=== PATIENT | male | born 1950 | race Caucasian/White ===

== ENCOUNTER 2017-09-04 10:10 | Inpatient (IN) | payer OTHER ==
[~2017-09-04] VITALS: Ht 172.7 cm; Wt 47.3 kg
--- NOTE | 2017-09-04 10:48 | ED GENERAL ADULT ---
History of Present Illness General Chief Complaint: General Adult Stated Complaint: VOMITING Source: patient Exam Limitations: no limitations Vital Signs & Intake/Output Vital Signs & Intake/Output Vital Signs Date Time Temp Pulse Resp B/P B/P Pulse O2 O2 Flow FiO2 Mean Ox Delivery Rate 09/04 1713 97.4 40 18 118/64 98 09/04 1425 98.0 42 20 124/85 98 Room Air 09/04 1333 45 20 120/75 98 Room Air 09/04 1312 50 20 105/68 99 Room Air 09/04 1230 98.4 50 20 110/72 99 Room Air 09/04 1144 98.4 55 20 123/81 98 Room Air 09/04 1106 98.6 61 20 78/48 98 Room Air 09/04 1016 98.8 47 18 72/40 98 Room Air Allergies Coded Allergies: No Known Allergies (09/04/17) Reconcile Medications Omeprazole 40 MG CAPSULE. 1 CAP PO DAILY GI (Reported) Triage Note: 67 YO MALE TO TRIAGE FOR EVAL OF VOMTIING X "AWHILE" REPORTS HE WAS SEEN AT THE [facility] 2 WEEKS AGO FOR SAME AND WAS DX WITH GERD AND PLACED ON OMEPRAZOLE. REPORTS S/S HAVE NOT GOTTEN BETTER AND HE VOMITS APPROX 30MINUTES AFTER EATING EVERY MEAL. Triage Nurses Notes Reviewed? yes Onset: Abrupt Duration: day(s):, constant, continues in ED, getting worse Timing: recent history Injury Environment: home Severity: moderate, severe No Modifying Factors: none Associated Symptoms: NAUSEA VOMITING HPI: 67-year-old male past medical history of GERD and develop mental delay presents for evaluation of episodes of nausea vomiting and weakness. Patient reports that over the past month or so he's had multiple episodes of vomiting 30 minutes after meals. He states that his cause him to have a decreased appetite and has lost weight. Has not been eating and drinking as much. He reports he has burning in his throat and feels like he has acid reflux. No diarrhea chest pain shortness of breath dizziness or lightheadedness. The only medication he's been taking is omeprazole without any improvement. No fever no urinary symptoms. No recent surgery. (Boyd Anderson) Past History Travel History Traveled to [place] past 21 day No Medical History Any Pertinent Medical History? see below for history Neurological: NONE EENT: NONE Cardiovascular: NONE Respiratory: NONE Gastrointestinal: GERD Hepatic: NONE Renal: NONE Musculoskeletal: NONE Psychiatric: NONE Endocrine: NONE Blood Disorders: NONE Cancer(s): NONE BOOKING MANAGER/Reproductive: NONE Surgical History Surgical History: non-contributory Psychosocial History What is your primary language Pashto Tobacco Use: Never used Family History Hx Contributory? No (Boyd Anderson) Review of Systems Review of Systems Constitutional: Reports: weakness. EENTM: Reports: no symptoms. Respiratory: Reports: no symptoms. Cardiovascular: Reports: no symptoms. GI: Reports: see HPI, nausea, vomiting. Genitourinary: Reports: no symptoms. Musculoskeletal: Reports: no symptoms. Skin: Reports: no symptoms. Neurological/Psychological: Reports: no symptoms. Hematologic/Endocrine: Reports: no symptoms. Immunologic/Allergic: Reports: no symptoms. All Other Systems: Reviewed and Negative (Boyd Anderson) Physical Exam Physical Exam General Appearance: well developed/nourished, no apparent distress, alert, awake , thin Head: atraumatic, normal appearance Eyes: Bilateral: normal appearance, PERRL, EOMI. Ears, Nose, Throat: normal pharynx, normal ENT inspection, hearing grossly normal Neck: normal inspection, supple, full range of motion Respiratory: normal breath sounds, chest non-tender, no respiratory distress, lungs clear Cardiovascular: normal peripheral pulses, bradycardia Peripheral Pulses: 2+ radial (R), 2+ radial (L) Gastrointestinal: normal bowel sounds, soft, non-tender, no organomegaly Back: normal inspection, normal range of motion, no vertebral tenderness Extremities: normal inspection, normal range of motion, no edema Neurologic/Psych: no motor/sensory deficits, awake, alert, oriented x 3, normal gait, normal mood/affect Skin: intact, normal color, warm/dry Lymphatic: no anterior cervical ely Core Measures ACS in differential dx? No CVA/TIA Diagnosis: No Sepsis Present: No Sepsis Focused Exam Completed? No (Boyd Anderson) Progress Differential Diagnoses I considered the following diagnoses in my evaluation of the patient: [ Symptomatic bradycardia, heart block, malignancy, septic shock, dehydration, electrolyte abnormality, PE, acute coronary syndrome] Plan of Care: Orders Procedure Date/time Status TROPONIN LEVEL 09/05 0100 Active EKG 09/05 0100 Active Nothing by Mouth 09/04 D Active TROPONIN LEVEL 09/04 1944 Active LACTIC ACID 09/04 1944 Active EKG 09/04 1944 Active Wound Care/Dressing 09/04 1904 Complete Weight 09/04 1905 Active VTE Mechanical Prophylaxis 09/04 190 Active Vital Signs 09/04 190 Active Turn and Reposition 09/04 1904 Active Drains/Tubes 09/04 1904 Complete Teach/Educate 09/04 1904 Active Skin Integrity Protocol 09/04 190 Active Skin/Pressure Ulcer Assess (Sk 09/04 190 Active Precautions 09/04 190 Active Pain Treatment and Response 09/04 1904 Active Nutritional Intake, Monitor 09/04 1904 Active Isolation 09/04 1904 Active CIWA 09/04 1904 Complete Patient Care Conference 09/04 1904 Active Activity/Ambulation 09/04 190 Active Weight 09/04 1855 Active VRE ACTIVE SURVIELLANCE 09/04 185 Active ACTIVE SURVEILLANCE NARES 09/04 185 Active Transfer patient to 09/04 1825 Active Vital Signs 09/04 1713 Active Patient Data 09/04 1644 Active Pathway - chart 09/04 1550 Active House Staff 09/04 1550 Active Patient Data 09/04 1550 Active ED Holding Orders 09/04 1437 Active Admit to inpatient 09/04 1437 Active Code Status 09/04 1437 Active EKG 09/04 1102 Active Intake & Output 09/04 1059 Complete Add-on Test (ER Only) 09/04 1047 Active HIV (Reflex to HIVCQ) 09/04 1041 Complete Add-on Test (ER Only) 09/04 1028 Active EKG 09/04 1020 Active URINALYSIS 09/04 1014 Complete TSH REFLEX 09/04 1014 Complete TROPONIN LEVEL 09/04 1014 Complete PARTIAL THROMBOPLASTIN TIME 09/04 1014 Complete PROTHROMBIN TIME 09/04 1014 Complete MAGNESIUM 09/04 1014 Complete LIPASE 09/04 1014 Complete LACTIC ACID 09/04 1014 Complete COMPREHENSIVE METABOLIC PANEL 09/04 1014 Complete CBC WITHOUT DIFFERENTIAL 09/04 1014 Complete US-ABD/PELV ORGAN DOPPLER 09/04 UNK Active Lab Add-on Test 09/04 UNK Active VTE Mechanical Prophylaxis 09/04 UNK Active MISTAKE 09/04 UNK Active Telemetry/[employer] Combination Teacher 09/04 UNK Active Intake & Output 09/04 UNK Active Hemoccult 09/04 UNK Active Current Medications Sig/[place] Start time Last Medication Dose Stop Time Status Admin Enoxaparin Sodium 40 MG DAILY 05/08 0900 AC (Lovenox) Pantoprazole Sodium 40 MG BID 09/04 2100 AC 09/04 (Protonix) 2017 Atropine Sulfate 0.5 MG ONCE PRN 09/04 1800 AC (Atropine) Dextrose/Sodium 1,000 ML Q13H 09/04 1800 AC 09/04 Chloride 1906 (D5W-1/2 Normal Saline 1000ML) Acetaminophen 650 MG Q6P PRN 09/04 1600 AC (Tylenol) Ibuprofen 600 MG Q6P PRN 09/04 1600 AC (Motrin) Oxycodone/ 1 TAB Q6P PRN 09/04 1600 AC Acetaminophen (Percocet) Laboratory Tests 09/04/171951: Troponin I Pending 09/04/171951: Lactic Acid Pending 09/04/17 1511: Urine Color YEL, Urine Clarity CLEAR, Urine pH 5.5, Ur Specific [place] <= 1.005 , Urine Protein NEG, Urine Ketones NEG, Urine Nitrite NEG, Urine Bilirubin NEG, Urine Urobilinogen 0.2, Ur Leukocyte Esterase NEG, Ur Microscopic EXAM NOT REQUIRED, Urine Hemoglobin NEG, Urine Glucose NEG 09/04/17 1041: Anion Gap 13, Estimated GFR > 60, BUN/Creatinine Ratio 30.0 H, Glucose 79, Lactic Acid 1.0, Calcium 9.1, Magnesium 1.8, Total Bilirubin 0.7, AST 27, ALT 25 , Alkaline Phosphatase 58, Troponin I < 0.01, Total Protein 6.7, Albumin 3.8, Globulin 2.9, Albumin/Globulin Ratio 1.3, Lipase 38, TSH &T3 &Free T4 Intrp 3.710, PT 11.6, INR 1.06, APTT 26, CBC w Diff NO MAN DIFF REQ, RBC 4.31 L, MCV 89.8, MCH 29.3, MCHC 32.7 L, RDW 13.2, MPV 8.1, Gran % 76.1 H, Lymphocytes % 13.1 L, Monocytes % 7.5, Eosinophils % 3.0, Basophils % 0.3, Absolute Granulocytes 4.3, Absolute Lymphocytes 0.7 L, Absolute Monocytes 0.4, Absolute Eosinophils 0.2, Absolute Basophils 0, HIV 1&2 Ab Western Blot NONREACTIVE Microbiology 09/04 1849 UPPER RESP: Surveillance Culture - RECD 09/04 1849 GI: Surveillance Culture - RECD Patient seen and evaluated. On initial evaluation he is hypotensive and bradycardic. His heart rate is down to the 30s. Appears to be sinus bradycardia. He is hypotensive to 70s over 40s. He does appear to be mentating well. He has no chest pain or shortness of breath. IV fluids ordered patient also be medicated with 0.5 mg of IV atropine. Patient is doing much better after atropine. He is now in the 50s and 60s. After fluids blood pressure has improved to the 120s systolic. Blood work shows normal troponin normal electrolytes. Patient did bradycardia down again to the mid 40s however his blood pressure is stable. He is mentating well. We'll hold additional atropine or pacing for now. Spoke with Dr. Santoro from cardiology who suspects this may be symptomatic bradycardia. He recommends admission to the hospital for further evaluation and treatment and considering pacemaker. Case discussed with Dr. Corea he agrees. Diagnostic Imaging: Viewed by Me: Radiology Read. Discussed w/RAD: Radiology Read. Radiology Impression: PATIENT: CÉSAR WILKINS PRESENT AGE: 67 PATIENT ACCOUNT NO: [id number] : 48 LOCATION: [facility] ORDERING PHYSICIAN: Boyd ALVAREZ SERVICE DATE: 09/04/17 EXAM TYPE: RAD - XRY- PORTABLE CHEST XRAY EXAMINATION: XR PORTABLE CHEST CLINICAL INFORMATION: Hypotension, CHF COMPARISON: None TECHNIQUE: Portable frontal view of the chest was obtained. FINDINGS: Hyperinflated emphysematous lungs are noted. There is an indistinct 2 cm density in the left mid lung, at the level of left hilum. An underlying mass is not excluded. No pleural effusion or pneumothorax. The cardiac size is upper normal limits. The mediastinal silhouette is normal. No pulmonary venous congestion. IMPRESSION: Hyperinflated emphysematous lungs. A 2 cm indistinct masslike density in the left mid lung. CT scan evaluation can be considered. Borderline cardiac size. DICTATED BY: Yong Donnelly MD DATE/TIME DICTATED:09/04/171255 GROUP EXERCISE MANAGER:VERNELL DATE/TIME TRANSCRIBED:1255 CONFIDENTIAL, DO NOT COPY WITHOUT APPROPRIATE AUTHORIZATION., PATIENT: CÉSAR WILKINS PRESENT AGE: 67 PATIENT ACCOUNT NO: [id number] : 48 LOCATION: [facility] ORDERING PHYSICIAN: Boyd ALVAREZ SERVICE DATE: 09/04/17 EXAM TYPE: CAT - CT ABD & PELVIS W IV CONTRAST EXAMINATION: CT ABDOMEN AND PELVIS WITH CONTRAST CLINICAL INFORMATION: Intermittent nausea and vomiting, hypotension. COMPARISON: None TECHNIQUE: Multidetector volumetric imaging was performed of the abdomen and pelvis following IV administration of 95 mL of Optiray 320 intravenous contrast. Sagittal and coronal reformatted images were obtained on the technologist's workstation. DLP: 243 mGy-cm FINDINGS: There is a paucity of intra-abdominal fat. LUNG BASES: There are mild dependent changes in the visualized lung bases. The imaged heart and pericardium appear unremarkable. The distal esophagus is fluid-filled and demonstrates a small hiatal hernia. LIVER, GALLBLADDER, AND BILIARY TREE: The liver enhances normally with normal contour. In the inferior aspect of the right lobe there is a 7 mm hypoattenuating focus, nonspecific. No definitive intrahepatic or extrahepatic ductal dilatation is visualized. The gallbladder is unremarkable with no evidence of radiopaque gallstones, gallbladder wall thickening, or obvious pericholecystic inflammatory changes. PANCREAS: Pancreatic parenchyma appears unremarkable. The pancreatic duct is visualized and appears top normal in caliber at 2 mm in diameter. SPLEEN: Unremarkable. ADRENAL GLANDS: Unremarkable. KIDNEYS AND URETERS: The kidneys are normal in size, shape, and attenuation. No hydronephrosis, hydroureter, or calculi seen. No perinephric stranding. BLADDER: Unremarkable. GASTROINTESTINAL TRACT: No definitive bowel dilatation is visualized. There is moderate stool within the colon. The lack of intra-abdominal fat substantially limits assessment for extraluminal air and ascites; no conclusive extraluminal air. A small amount of free fluid may be present in the pelvis. There may be some mucosal hyperemia diffusely involving small bowel loops. An appendix is difficult to definitively identify. ABDOMINAL WALL: No significant hernia is appreciated. LYMPH NODES: Adenopathy is difficult to evaluate due to lack of intra-abdominal fat. VASCULAR: The aorta appears normal in caliber. There is streak artifacts extending through an area of the right portal vein which likely creates some intraluminal heterogeneity. Correlation with ultrasound is recommended to ensure patency of the portal vein without intraluminal filling defects. The iliac vessels are somewhat tortuous and patulous. PELVIC VISCERA: Unremarkable. OSSEOUS STRUCTURES: There are 5 nonrib-bearing lumbar type vertebral bodies. There were multilevel degenerative changes of the spine most notable at L5-S1. There are mild degenerative changes of both hips, SI joints, and pubic symphysis. No acute osseous abnormality. IMPRESSION: There is a paucity of intra-abdominal fat which limits assessment. Mild small bowel mucosal hyperemia may be present, possibly reflecting an enteritis. A small amount of fluid within the pelvis is suspected. Heterogeneous attenuation within the right portal vein, likely due to streak artifact. Correlation with ultrasound is suggested to ensure normal portal venous flow. DICTATED BY: Narinder Silver MD DATE/TIME DICTATED:09/04/171350 GROUP EXERCISE MANAGER:VERNELL DATE/TIME TRANSCRIBED:09/04/171350 CONFIDENTIAL, DO NOT COPY WITHOUT APPROPRIATE AUTHORIZATION. <Electronically signed in Other Vendor System> Initial ED EKG: SINUS BRADYCARDIA RATE 43, RIGHT BUNDLE LEFT ANTERIOR FASCICULAR BLOCK, REPEAT ekg AFTER ATROPINE SHOWS IMPROVED RATE IN THE 50S (Boyd Anderson) Departure Departure Disposition: STILL A PATIENT Condition: Stable Clinical Impression Primary Impression: Symptomatic bradycardia Referrals: Ace Olvera MD (PCP/Family) Departure Forms: Customer Survey General Discharge Information Admission Note Spoke With: Leonel Claudio MD Documentation of Exam: Documentation of any treatments & extenuating circumstances including Concerns Regarding Discharge (functional status, medication knowledge or non-compliance, living conditions, etc.) that warrant an admission rather than observation: [ Telemetry, serial labs, serial EKGs, monitoring of vital signs, cardiac consult, echocardiogram, pacemaker, IV fluids] (Boyd Anderson) PA/EC TEACHER Co-Sign Statement Statement: ED Attending supervision documentation- [X] I saw and evaluated the patient. I have also reviewed all the pertinent lab results and diagnostic results. I agree with the findings and the plan of care as documented in the PA's/EC TEACHER's documentation. [] I have reviewed the ED Record and agree with the PA's/EC TEACHER's documentation. [] Additions or exceptions (if any) to the PAs/EC TEACHER's note and plan are summarized below: [] (Leland Corea DO) Critical Care Note Critical Care Note Critical Care Time: non-applicable (Boyd Anderson)
[2017-09-04] MEDS ORDERED: OMEPRAZOLE40 M1 PO (11:10)
[2017-09-04 11:12] LABS: ABSOLUTE BASOPHIL COUNT 0 /CUMM (0.0-0.2); ABSOLUTE EOSINOPHIL COUNT 0.2 /CUMM (0.0-0.7); ABSOLUTE GRANULOCYTE CT 4.3 /CUMM (1.4-6.5); ABSOLUTE LYMPH COUNT 0.7 /CUMM (1.2-3.4); ABSOLUTE MONOCYTE COUNT 0.4 /CUMM (0.10-0.60); BASOPHIL % 0.3 % (0.0-2.0); GRANULOCYTE % 76.1 % (42.2-75.2); HEMATOCRIT 38.7 % (42-52); MEAN CORPUSCULAR HGB 29.3 PG (27.0-31.0); MEAN CORPUSCULAR HGB CONC 32.7 G/DL (33.0-37.0); MEAN CORPUSCULAR VOLUME 89.8 FL (80.0-94.0); MEAN PLATELET VOLUME 8.1 FL (7.4-10.4); PLATELET COUNT 222 /CUMM (130-400); RBC DISTRIBUTION WIDTH 13.2 % (11.5-14.5); RED BLOOD CELL CT 4.31 /CUMM (4.70-6.10); WHITE BLOOD CELL COUNT 5.7 /CUMM (4.8-10.8)
[2017-09-04 11:14] LABS: PT 11.6 SEC (9.4-12.5); PTT 26 SEC (25-37)
--- NOTE | 2017-09-04 13:03 | RADIOLOGY REPORT ---
EXAMINATION: XR PORTABLE CHEST CLINICAL INFORMATION: Hypotension, CHF COMPARISON: None TECHNIQUE: Portable frontal view of the chest was obtained. FINDINGS: Hyperinflated emphysematous lungs are noted. There is an indistinct 2 cm density in the left mid lung, at the level of left hilum. An underlying mass is not excluded. No pleural effusion or pneumothorax. The cardiac size is upper normal limits. The mediastinal silhouette is normal. No pulmonary venous congestion. IMPRESSION: Hyperinflated emphysematous lungs. A 2 cm indistinct masslike density in the left mid lung. CT scan evaluation can be considered. Borderline cardiac size.
--- NOTE | 2017-09-04 14:09 | CT SCAN REPORT ---
EXAMINATION: CT ABDOMEN AND PELVIS WITH CONTRAST CLINICAL INFORMATION: Intermittent nausea and vomiting, hypotension. COMPARISON: None TECHNIQUE: Multidetector volumetric imaging was performed of the abdomen and pelvis following IV administration of 95 mL of Optiray 320 intravenous contrast. Sagittal and coronal reformatted images were obtained on the technologist's workstation. DLP: 243 mGy-cm FINDINGS: There is a paucity of intra-abdominal fat. LUNG BASES: There are mild dependent changes in the visualized lung bases. The imaged heart and pericardium appear unremarkable. The distal esophagus is fluid-filled and demonstrates a small hiatal hernia. LIVER, GALLBLADDER, AND BILIARY TREE: The liver enhances normally with normal contour. In the inferior aspect of the right lobe there is a 7 mm hypoattenuating focus, nonspecific. No definitive intrahepatic or extrahepatic ductal dilatation is visualized. The gallbladder is unremarkable with no evidence of radiopaque gallstones, gallbladder wall thickening, or obvious pericholecystic inflammatory changes. PANCREAS: Pancreatic parenchyma appears unremarkable. The pancreatic duct is visualized and appears top normal in caliber at 2 mm in diameter. SPLEEN: Unremarkable. ADRENAL GLANDS: Unremarkable. KIDNEYS AND URETERS: The kidneys are normal in size, shape, and attenuation. No hydronephrosis, hydroureter, or calculi seen. No perinephric stranding. BLADDER: Unremarkable. GASTROINTESTINAL TRACT: No definitive bowel dilatation is visualized. There is moderate stool within the colon. The lack of intra-abdominal fat substantially limits assessment for extraluminal air and ascites; no conclusive extraluminal air. A small amount of free fluid may be present in the pelvis. There may be some mucosal hyperemia diffusely involving small bowel loops. An appendix is difficult to definitively identify. ABDOMINAL WALL: No significant hernia is appreciated. LYMPH NODES: Adenopathy is difficult to evaluate due to lack of intra-abdominal fat. VASCULAR: The aorta appears normal in caliber. There is streak artifacts extending through an area of the right portal vein which likely creates some intraluminal heterogeneity. Correlation with ultrasound is recommended to ensure patency of the portal vein without intraluminal filling defects. The iliac vessels are somewhat tortuous and patulous. PELVIC VISCERA: Unremarkable. OSSEOUS STRUCTURES: There are 5 nonrib-bearing lumbar type vertebral bodies. There were multilevel degenerative changes of the spine most notable at L5-S1. There are mild degenerative changes of both hips, SI joints, and pubic symphysis. No acute osseous abnormality. IMPRESSION: There is a paucity of intra-abdominal fat which limits assessment. Mild small bowel mucosal hyperemia may be present, possibly reflecting an enteritis. A small amount of fluid within the pelvis is suspected. Heterogeneous attenuation within the right portal vein, likely due to streak artifact. Correlation with ultrasound is suggested to ensure normal portal venous flow.
--- NOTE | 2017-09-04 14:53 | History & Physical ---
Lea Sharif MD 09/04/17 9333: General Information and HPI MD Statement: I have seen and personally examined CÉSAR WILKINS and documented this H&P. The patient is a 67 year old M who presented with a patient stated chief complaint of nausea and vomiting on eating Source of Information: patient, friend Exam Limitations: no limitations History of Present Illness: This is a 67 year old male with a PMH of GERD and unspecified cardiac issue that comes to us for nausea and vomiting/ heartburn symptoms of 6 weeks duration. Patient is accompanied by his long time home health palliative care nurse practitioner who gives much of the history. The patient states that for the past 6 weeks whenever he attempts to eat anything he vomits about 30 minutes afterwards. He states that before he throws up he feels a burning sensation down the length of his esophagus. Patient states that he was seen by his doctor about 2 weeks ago who diagnosed him with GERD and prescribed him Prilosec which has not helped at all. He was also instructed not eat caffeine, tomatoes, spices. Apparently Monday, the patient attended a fair and ate lasagna and a starry smoothie and promptly vomited. He states that even eating a few bites of food has caused him to become nauseous and vomit. The last time the patient ate was that meal on Monday night. The home health care worker attempted to feed him Ensure today to no avail, he has been afraid to eat since Monday. She noted that he appeared "flushed" in the face today, more lethargic so she brought him in. The patient denies any difficulty initiating swallowing. He denies any feeling of food getting stuck in his throat. He states that he only really vomits when he eats solid foods. He denies any hematemesis, brown or red blood, and states that the vomitus is usually clear. Does not notice any change in his bowel movements, denies melenic or hematochezia. She has about 1 bowel movement a day. Patient does admit to associated shortness of breath when he has these vomiting episodes. He denies any abdominal pain. The patient also admits that recently his urine has had a different smell. He denies any dysuria, hematuria. The patient has lost weight in the past 6 weeks, although only noted to be around 4 pounds by the home health worker. However, she does note that he has lost a lot in the past year, cannot specify amount. Patient denies headache, dizziness, nightsweats. He reports that he had an unknown surgery in 1995 and had to be put on a telemetry floor, but he cannot say why. Denies any previous heart or blood pressure issues. The home healthcare worker notes that he may have early onset Alzheimer's. The patient denies every having smoked, drugs, admits to rare alcohol use in the past. Denies opiate use by prescription or otherwise. Patient has family history of liver and throat cancer in his brothers, heart attack in his father. No known allergies to drugs/food. Allergies/Medications Allergies: Coded Allergies: No Known Allergies (09/04/17) Home Med list Omeprazole 40 MG CAPSULE.DR Cruz CAP PO DAILY GI (Reported) Compliance With Home Meds: GOOD Past History Travel History Traveled to [place] past 21 day No Medical History Neurological: Beginning dementia by report of home health aide. EENT: NONE Cardiovascular: unspecified heart rate issue Respiratory: NONE Gastrointestinal: GERD Hepatic: NONE Renal: NONE Musculoskeletal: NONE Psychiatric: NONE Endocrine: NONE Blood Disorders: NONE Cancer(s): NONE WATCH DIAL STONER/Reproductive: NONE Surgical History Surgical History: none Past Family/Social History Family History Relations & Conditions if any Family history was reviewed; no changes noted. Psychosocial History Where do you live? Home Services at Home: Home Health Aide Primary Language: Iraqi Smoking Status: Former Smoker ETOH Use: denies use Illicit Drug Use: denies illicit drug use Living Will? no Functional Ability Ambulation: independent Review of Systems Review of Systems Constitutional: Reports: weakness, unexplained weight loss. EENTM: Reports: no symptoms. Cardiovascular: Reports: no symptoms. Respiratory: Reports: no symptoms. GI: Reports: nausea, vomiting. Genitourinary: Reports: no symptoms. Musculoskeletal: Reports: no symptoms. Skin: Reports: no symptoms. Neurological/Psychological: Reports: no symptoms. Hematologic/Endocrine: Reports: no symptoms. Immunologic/Allergic: Reports: no symptoms. All Other Systems: Reviewed and Negative Exam & Diagnostic Data Last 24 Hrs of Vital Signs/I&O Vital Signs Date Time Temp Pulse Resp B/P B/P Pulse O2 O2 Flow FiO2 Mean Ox Delivery Rate 09/04 1713 97.4 40 18 118/64 98 09/04 1425 98.0 42 20 124/85 98 Room Air 09/04 1333 45 20 120/75 98 Room Air 09/04 1312 50 20 105/68 99 Room Air 09/04 1230 98.4 50 20 110/72 99 Room Air 09/04 1144 98.4 55 20 123/81 98 Room Air 09/04 1106 98.6 61 20 78/48 98 Room Air 09/04 1016 98.8 47 18 72/40 98 Room Air Intake & Output 09/04 1600 09/04 0800 05 0000 Intake Total 3000 Output Total Balance 3000 Intake, IV 3000 Physical Exam General Appearance Alert, Oriented X3, Cooperative, No Acute Distress, cachectic Skin No Rashes, No Breakdown, No Significant Lesion Skin Temp/Moisture Exam: Warm/Dry Sepsis Skin Exam (color): Normal for Ethnicity HEENT Atraumatic, PERRLA, EOMI, patient has white plaque on the roof of his mouth over his dentures. Neck Supple Cardiovascular Normal S1, Normal S2, No Murmurs, bradycardia Lungs Clear to Auscultation, Normal Air Movement Abdomen Normal Bowel Sounds, No Tenderness, cachectic abdomen, liver and spleen palpable Neurological Normal Speech Extremities No Clubbing, No Cyanosis, No Edema, Normal Pulses, No Tenderness/ Swelling Vascular Normal Pulses, Pulses Symmetrical Sepsis Peripheral Pulse Location: Radial Sepsis Peripheral Pulse Exam: Normal Sepsis Cap Refill Exam: <2 Sec Last 24 Hrs of Labs/Rasheed: Laboratory Tests 09/04/17 1511: Urine Color YEL, Urine Clarity CLEAR, Urine pH 5.5, Ur Specific [place] <= 1.005 , Urine Protein NEG, Urine Ketones NEG, Urine Nitrite NEG, Urine Bilirubin NEG, Urine Urobilinogen 0.2, Ur Leukocyte Esterase NEG, Ur Microscopic EXAM NOT REQUIRED, Urine Hemoglobin NEG, Urine Glucose NEG 09/04/17 1041: Anion Gap 13, Estimated GFR > 60, BUN/Creatinine Ratio 30.0 H, Glucose 79, Lactic Acid 1.0, Calcium 9.1, Magnesium 1.8, Total Bilirubin 0.7, AST 27, ALT 25 , Alkaline Phosphatase 58, Troponin I < 0.01, Total Protein 6.7, Albumin 3.8, Globulin 2.9, Albumin/Globulin Ratio 1.3, Lipase 38, TSH &T3 &Free T4 Intrp 3.710, PT 11.6, INR 1.06, APTT 26, CBC w Diff NO MAN DIFF REQ, RBC 4.31 L, MCV 89.8, MCH 29.3, MCHC 32.7 L, RDW 13.2, MPV 8.1, Gran % 76.1 H, Lymphocytes % 13.1 L, Monocytes % 7.5, Eosinophils % 3.0, Basophils % 0.3, Absolute Granulocytes 4.3, Absolute Lymphocytes 0.7 L, Absolute Monocytes 0.4, Absolute Eosinophils 0.2, Absolute Basophils 0, HIV 1&2 Ab Western Blot Pending Assessment/Plan Assessment: This is a 67 year old male with a PMH of GERD and unspecified cardiac issue that comes to us for nausea and vomiting/ heartburn symptoms of 6 weeks duration. Patient is accompanied by his long time home health palliative care nurse practitioner who gives much of the history. The patient states that for the past 6 weeks whenever he attempts to eat anything, even small spoonfuls, he has episodes with clear vomitus soon after. He was recently diagnosed with GERD and started on protonix to not avail. Patient only vomits when he eats solid foods but denies any diffulty swallowing or the feeling of food being stuck in his throat. Patient specifies unknown cardiac issue in the past, denies any current dizziness, LOC. In the ED, temperature is found to be 98, heart rate 42, respiratory rate 20, blood pressure 124/85 up from 72/40 after being given 3 normal saline boluses, 98% on room air. WBC count 5.7, hemoglobin 12.6 with normal MCV, lactic acid 1.0, LFTs normal, sodium 138, potassium 4.3, troponins negative, EKG shows sinus bradycardia at a rate of 43 with no heart block and a QRS just under the upper limits of normal. As stated patient was given 3 normal saline boluses and atropine 0.5 mg IV 1. Chest x-ray showed hyperinflated emphysematous lungs and a 2 cm indistinct masslike density in the left midlung. CT abdomen and pelvis showed evidence of hyperemia and enteritis with questionable streak artifact in the left portal vein. Problem list -Bradycardia, in setting of esophageal/chest pain, requiring one dose of atropine -Hypotension requiring fluid resuscitation -Gastroesophageal symptoms, nausea and vomiting, evidence of malnutrition -Evidence of oral leukoplakia or thrush Plan Patient to be transferred to ICU as he will require pacer pads and atropine bedside for low heart rate. 1. Bradycardia, in setting of esophageal/chest pain -Pacer pads and atropine at bedside for heart rate less than 30 -Continuous telemetry monitoring -Echocardiogram -Cardio consult, Dr. Santoro has seen the patient. -Troponins and EKGs 3 -Thyroid function tests -Lyme titers -Utox 2. Hypotension requiring fluid resuscitation: Patient has sodium of 138, BUN 38, creatinine of 1.0. -Continue D5 half normal saline at a rate of 100 mL per hour -Continue to monitor BEP and vitals 3. Gastroesophageal symptoms, nausea and vomiting, evidence of malnutrition -Zofran as needed -Protonix IV 40 mg twice a day -Hold opiates as we are not sure if patient is having dysmotility issues -Check creatinine in morning and if normal, order CT chest. Patient has received contrast for CT abdomen and pelvis this evening. -Consider modified barium swallow with speech and swallow pending chest CT -Continue to keep patient nothing by mouth -Calorie count and monitoring, consider nutritional consult after patient is eating. -Ultrasound abdomen and pelvis Doppler 4. Oral lesion resembling oral leukoplakia or thrush -HIV test in setting of severe weight loss DVT prophylaxis with Alps and heparin Patient is nothing by mouth Patient is full code As Ranked By This Provider Problem List: 1. Symptomatic bradycardia 2. Nausea and vomiting 3. GERD (gastroesophageal reflux disease) Core Measures/Misc (01/15) Acute Coronary Syndrome ACS Diagnosis: No Congestive Heart Failure Congestive Heart Failure Diagnosis No Cerebrovascular Accident CVA/TIA Diagnosis: No VTE (View Protocol) VTE Risk Factors Acute Medical Illness No Mechanical VTE Prophylaxis d/t N/A MechProphylax Ordered No VTE Pharm Prophylaxis d/t NA PharmProphylax ordered Sepsis (View protocol) Sepsis Present: No Maria Fernanda Oviedo MD 09/04/171952: Attending MD Review Statement Attending Statement Attending MD Statement: examined this patient, discuss w/resident/PA/SUPERVISOR FABRICATION, agreed w/resident/PA/SUPERVISOR FABRICATION, reviewed EMR data (avail), discussed with nursing, reviewed images Attending Assessment/Plan: 67 year old male with PMH of developmental delay who is here with severe bradycardia. The patient says that for the past few weeks he's been having symptoms of indigestion and has been vomiting after almost every meal. The history appears to be suggestive of the vomiting worse with solids and he can tolerate liquid foods fairly well. He says in the past week he has been diagnosed with GERD and was prescribed omeprazole which he took but it made no change to his symptoms. His history is corroborated by his home health care worker who was with him and says that because of the episodes of vomiting getting so severe essentially for the past few days the patient has had very poor by mouth intake. That's what prompted her to bring him to the emergency room. When he first came to the emergency room he was significantly hypotensive and bradycardic. His labs were essentially normal and unrevealing. A CT abdomen showed some question of an enteritis and possibility of portal vein artifact versus thrombosis. His chest x-ray is also talked to interpret as it showed a 2 cm masslike density that needs further evaluation with CT chest. His hypotension responded well to IV fluids but his bradycardia persisted. His EKG is unrevealing for any heart blocks or Wenckebach and it appears to be significant sinus bradycardia. We initially admitted him to telemetry but have upgraded him to ICU based on his heart rate and the need for possible atropine or pacer pads overnight. We have a bradycardia workup pending including Lyme titer, thyroid function tests, echocardiogram and Dr. Santoro will see him from cardiology. Will gently hydrate him and keep him nothing by mouth to get the ultrasound of the abdomen to evaluate the abnormality seen on the portal vein and will also get a CT chest to better evaluate his masslike density. He will also need a GI evaluation and possible endoscopy once the bradycardia issue is sorted out for this vomiting after meals. Would put him on low-dose DVT prophylaxis and follow closely. Otoniel WILLIS,Louisa 09/04/17 7426: Resident Review Statement Resident Statement: examined this patient, discussed with internal grinder tender, agreed with internal grinder tender Other Findings: This is a 67-year-old gentleman with a past medical history significant for GERD and developmental delay, who comes in for chief complaint of persistent vomiting and heartburn. Patient had his home nursing caretaker [facility] at bedside, who provided the majority of the history. Per patient, his symptoms of GERD started over a year ago, however they got significantly worse about 6 weeks ago. He started developing vomiting with every meal and about 2 weeks ago he went to see his PCP Dr. Vera. He was prescribed a PPI and given an antireflux diet. Patient states that neither intervention made change in his symptoms. Last time he vomited was on Monday night. After that, he states that he has been afraid to eat did not eat anything all of Monday. He states the vomiting occurs only with solid foods and seems to be better with smoothies or liquids. He states that his symptoms happen after just a few bites of food. He does not have any nausea or abdominal pain associated with the vomiting. Rather, he says his food does not go down; he gets a burning sensation in mid chest and then he throws it back up. Denies any coffee-ground emesis or hematemesis. He does endorse weight loss but cannot quantify the amount. Denies any headache , nausea, diarrhea, chest pain, shortness of breath, or weakness. Family history significant for throat cancer in 1 sibling and liver cancer in another. He denies any drinking, smoking or substance abuse. He currently does not work and stays at home on disability. During ED workup patient was found to be significantly hypotensive with blood pressure 72/40 requiring 3 L normal saline resuscitation. Additionally, he was noted to have bradycardia into the 30s along with the hypotension. Patient denies any dizziness, change in vision, palpitation or chest pain. He denies any previous history of bradycardia, or recent change in medications. PLAN: 1. Bradycardia: He seemed to improve after getting atropine 1 in the ED however, when he came back to the floors he started going into the 30s again while remaining completely awake, asymptomatic and conversant. X-ray does show a 2 cm mass in left midlung and borderline cardiomegaly. His EKG shows some slightly widened QRS. But it does not appear like he is in heart block. Differential could include increased vagal tone, hypothyroid, or ingestions. * Transferred to ICU * Atropine at bedside * Pacer at bedside with pads on * Check Lyme panel * Monitor electrolytes * Appreciate cardio input * Urine tox * Echo 2. Hypotension: Unsure of etiology but it seemed to resolve after 3 L of fluid. * Continue to monitor 3. Vomiting: CT abdomen and pelvis with contrast shows ?enteritis and ?streak artifact in the right portal vein. However the description of his symptoms seemed primarily esophageal given the dysphasia is with solids. * Check TFTs * Check LFT * Check lipase * Ultrasound abdomen Doppler * Strict ins and outs * N.p.o. * Swallow eval * CT chest with IV contrast in a.m. * Hemoccult 4. On physical exam he did have some leukoplakia versus oral thrush finding on the hard palate of his dentures. * HIV 5. X-ray finding of a 2 cm mass in left midlung: Patient states that he has never smoked but given his weight loss, cachectic appearance, dysphasia there is concern for malignancy. * CT chest with contrast in a.m. Full code Chemical DVT prophylaxis N.P.O
--- NOTE | 2017-09-04 15:48 | Admission Certification ---
Admission Certification Certification Statement - As attending physician, I certify that at the time of - admission, based on clinical presentation, severity of - symptoms, need for further diagnostic testing and - therapeutic interventions, and risk of adverse outcomes - without in-hospital treatment, in my clinical assessment, - this patient requires an acute hospital stay for a minimum - of two nights or longer. I have also considered psychsocial - factors such as support system, advanced age, financial - issues, cognitive issues, and failed out-patient treatments, - past re-admission history, safety of patient, and lack of - compliance as applicable. Specific rationale supporting this admission is: Symptomatic bradycardia in patient with history of GERD and developmental delay.
[2017-09-04 17:13] VITALS: BP 118/64
--- NOTE | 2017-09-04 17:30 | Cons- Cardiology ---
General Information and HPI Consulting Request Date of Consult: 09/04/17 Requested By: Raoul WILLIS,Arnav Callahan Reason for Consult: Bradycardia History of Present Illness: The patient is a 67-year-old male with history of GERD who presented with complaint of nausea and vomiting. For the past 6 weeks he has been vomiting about 30 minutes after every meal. He was diagnosed 2 weeks ago with GERD and started on Prilosec. He was noted to have significant hypotension and bradycardia and after initially being admitted to the telemetry floor he was transferred to the intensive care unit. Chest x-ray shows a possible 2 cm masslike density. The patient is noted to be a poor historian. No chest pain. No syncope. No palpitations. No fever. Allergies/Medications Allergies: Coded Allergies: No Known Allergies (09/04/17) Home Med List: Omeprazole 40 MG CAPSULE. 1 CAP PO DAILY GI (Reported) Current Medications: Current Medications Sig/Triston Start time Last Medication Dose Route Stop Time Status Admin Acetaminophen 650 MG Q6P PRN 09/04 1600 AC PO Atropine Sulfate 0.5 MG ONCE PRN 09/04 1800 AC IV Atropine Sulfate 0 .STK-MED ONE 09/04 1101 DC .ROUTE Atropine Sulfate 0.5 MG ONE ONE 09/04 1045 DC / IV 09/04 1046 1056 Dextrose/Sodium 1,000 ML Q13H 09/04 1800 AC 09/05 Chloride IV 0510 Enoxaparin Sodium 40 MG DAILY 09/05 0900 AC 09/05 SC 1017 Ibuprofen 600 MG Q6P PRN 09/04 1600 DC PO Oxycodone/ 1 TAB Q6P PRN 09/04 1600 DC Acetaminophen PO Pantoprazole Sodium 40 MG BID 09/04 2100 AC 09/05 IV 0747 Sodium Chloride 1,000 ML BOLUS ONE 09/04 1345 DC 05/ IV 05/ 1444 1347 Sodium Chloride 1,000 ML BOLUS ONE 09/04 1100 DC 05/07 IV / 1159 1056 Sodium Chloride 1,000 ML BOLUS ONE 09/04 1030 DC 05/ IV / 1129 1056 Past History Travel History Traveled to [place] past 21 day No Medical History Neurological: BORDERLINE INTELLECTUAL EENT: NONE Cardiovascular: NONE Respiratory: NONE Gastrointestinal: GERD Hepatic: NONE Renal: NONE Musculoskeletal: NONE Psychiatric: NONE Endocrine: NONE Blood Disorders: NONE Cancer(s): NONE 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 Surgical History Surgical History: non-contributory Exam & Diagnostic Data Vital Signs and I&O Vital Signs Date Time Temp Pulse Resp B/P B/P Pulse O2 O2 Flow FiO2 Mean Ox Delivery Rate 09/05 0800 98.2 43 20 110/80 96 Room Air 09/05 0000 97.2 42 16 120/76 99 Room Air Room Air 09/04 1713 97.4 40 18 118/64 98 / 1425 98.0 42 20 124/85 98 Room Air 09/04 1333 45 20 120/75 98 Room Air 09/04 1312 50 20 105/68 99 Room Air 09/04 1230 98.4 50 20 110/72 99 Room Air 09/04 1144 98.4 55 20 123/81 98 Room Air 09/04 1106 98.6 61 20 78/48 98 Room Air Intake & Output 09/05 1600 09/05 0800 /08 0000 09/04 1600 09/04 0800 09/04 0000 Intake Total 569 042 1903 Output Total 300 0 Balance 627 712 5506 Intake, IV 141 570 1809 Intake, Oral 0 0 Output, Urine 300 0 Patient 100 lb 101 lb 100 lb Weight Weight Bed scale Bed scale Bed scale Measurement Method Labs/Rasheed Results: Laboratory Tests 09/05 09/05 09/04 0200 0200 2147 Chemistry Sodium (137 - 145 mmol/L) 137 Potassium (3.5 - 5.1 mmol/L) 3.7 Chloride (98 - 107 mmol/L) 104 Carbon Dioxide (22 - 30 mmol/L) 24 Anion Gap (5 - 16) 9 BUN (9 - 20 mg/dL) 20 Creatinine (0.7 - 1.2 mg/dL) 0.7 Estimated GFR (>60 ml/min) > 60 BUN/Creatinine Ratio (7 - 25 %) 28.6 H Troponin I (<0.11 ng/ml) < 0.01 Hematology CBC w Diff NO MAN DIFF REQ WBC (4.8 - 10.8 /CUMM) 5.4 RBC (4.70 - 6.10 /CUMM) 3.89 L Hgb (14.0 - 18.0 G/DL) 11.6 L Hct (42 - 52 %) 34.4 L MCV (80.0 - 94.0 FL) 88.5 MCH (27.0 - 31.0 PG) 29.9 MCHC (33.0 - 37.0 G/DL) 33.7 RDW (11.5 - 14.5 %) 13.1 Plt Count (130 - 400 /CUMM) 215 MPV (7.4 - 10.4 FL) 8.0 Gran % (42.2 - 75.2 %) 76.1 H Lymphocytes % (20.5 - 51.1 %) 13.6 L Monocytes % (1.7 - 9.3 %) 6.3 Eosinophils % (0 - 5 %) 3.4 Basophils % (0.0 - 2.0 %) 0.6 Absolute Granulocytes (1.4 - 6.5 /CUMM) 4.1 Absolute Lymphocytes (1.2 - 3.4 /CUMM) 0.7 L Absolute Monocytes (0.10 - 0.60 /CUMM) 0.3 Absolute Eosinophils (0.0 - 0.7 /CUMM) 0.2 Absolute Basophils (0.0 - 0.2 /CUMM) 0 Serology Lyme Disease Antibody Cancelled 09/04 1511 Chemistry Lactic Acid (0.7 - 2.1 mmol/L) 0.9 Troponin I (<0.11 ng/ml) < 0.01 Toxicology Urine Opiates Screen (>2000 NG/ML) < 100 Methadone Screen (>300 NG/ML) < 40 Barbiturate Screen (>200 NG/ML) < 60 Ur Phencyclidine Scrn (>25 NG/ML) < 6.00 Amphetamines Screen (>1000 NG/ML) < 100 U Benzodiazepines Scrn (>200 NG/ML) < 85 Urine Cocaine Screen (>300 NG/ML) < 50 Urine Cannabis Screen (>50 NG/ML) < 5.00 Urines Urine Color (YEL,AMB,STR) YEL Urine Clarity (CLEAR) CLEAR Urine pH (5.0 - 8.0) 5.5 Ur Specific Ball (1.001 - 1.035) <= 1.005 Urine Protein (NEG,<30 MG/DL) NEG Urine Ketones (NEG) NEG Urine Nitrite (NEG) NEG Urine Bilirubin (NEG) NEG Urine Urobilinogen (0.1 - 1.0 EU/dl) 0.2 Ur Leukocyte Esterase (NEG) NEG Ur Microscopic EXAM NOT REQUIRED Urine Hemoglobin (NEG) NEG Urine Glucose (N MG/DL) NEG 09/04 09/04 1041 1041 Chemistry Sodium (137 - 145 mmol/L) 138 Potassium (3.5 - 5.1 mmol/L) 4.3 Chloride (98 - 107 mmol/L) 101 Carbon Dioxide (22 - 30 mmol/L) 24 Anion Gap (5 - 16) 13 BUN (9 - 20 mg/dL) 30 H Creatinine (0.7 - 1.2 mg/dL) 1.0 Estimated GFR (>60 ml/min) > 60 BUN/Creatinine Ratio (7 - 25 %) 30.0 H Glucose (65 - 99 mg/dL) 79 Lactic Acid (0.7 - 2.1 mmol/L) 1.0 Calcium (8.4 - 10.2 mg/dL) 9.1 Magnesium (1.6 - 2.3 mg/dL) 1.8 Total Bilirubin (0.2 - 1.3 mg/dL) 0.7 AST (17 - 59 U/L) 27 ALT (21 - 72 U/L) 25 Alkaline Phosphatase (< 127 U/L) 58 Troponin I (<0.11 ng/ml) < 0.01 Total Protein (6.3 - 8.2 g/dL) 6.7 Albumin (3.5 - 5.0 g/dL) 3.8 Globulin (1.9 - 4.2 gm/dL) 2.9 Albumin/Globulin Ratio (1.1 - 2.2 %) 1.3 Lipase (23 - 300 U/L) 38 TSH &T3 &Free T4 Intrp (0.27 - 4.20 uIU/mL) 3.710 Coagulation PT (9.4 - 12.5 SEC) 11.6 INR (0.90 - 1.17) 1.06 APTT (25 - 37 SEC) 26 Hematology CBC w Diff NO MAN DIFF REQ WBC (4.8 - 10.8 /CUMM) 5.7 RBC (4.70 - 6.10 /CUMM) 4.31 L Hgb (14.0 - 18.0 G/DL) 12.6 L Hct (42 - 52 %) 38.7 L MCV (80.0 - 94.0 FL) 89.8 MCH (27.0 - 31.0 PG) 29.3 MCHC (33.0 - 37.0 G/DL) 32.7 L RDW (11.5 - 14.5 %) 13.2 Plt Count (130 - 400 /CUMM) 222 MPV (7.4 - 10.4 FL) 8.1 Gran % (42.2 - 75.2 %) 76.1 H Lymphocytes % (20.5 - 51.1 %) 13.1 L Monocytes % (1.7 - 9.3 %) 7.5 Eosinophils % (0 - 5 %) 3.0 Basophils % (0.0 - 2.0 %) 0.3 Absolute Granulocytes (1.4 - 6.5 /CUMM) 4.3 Absolute Lymphocytes (1.2 - 3.4 /CUMM) 0.7 L Absolute Monocytes (0.10 - 0.60 /CUMM) 0.4 Absolute Eosinophils (0.0 - 0.7 /CUMM) 0.2 Absolute Basophils (0.0 - 0.2 /CUMM) 0 Serology Lyme Disease Antibody Pending HIV 1&2 Ab Western Blot (NONREACTIVE) NONREACTIVE Diagnostic Data EKG Results EKG tracings and apparently reviewed, and reveals sinus bradycardia at 43 with right bundle branch block and left anterior fascicular block CXR Results Hyperinflated emphysematous lungs. A 2 cm indistinct masslike density in the left mid lung. CT scan evaluation can be considered. Other Results CT scan of the abdomen and pelvis 09/04/17, There is a paucity of intra-abdominal fat which limits assessment. Mild small bowel mucosal hyperemia may be present, possibly reflecting an enteritis. A small amount of fluid within the pelvis is suspected. Heterogeneous attenuation within the right portal vein, likely due to streak artifact. Correlation with ultrasound is suggested to ensure normal portal venous flow. Assessment/Plan Assessment/Plan Assessment: 1. Nausea and vomiting, possible gastroenteritis 2. Sinus bradycardia with hypotension and bifascicular block 3. Possible lung mass Plan: * Monitor in ICU. * Transcutaneous pacing if needed for symptomatic bradycardia * Possible permanent pacemaker placement * Echocardiogram * IV fluid * CT scan of the chest * Check Lyme titer Consult Acknowledgment - Thank you for your consult request.
--- NOTE | 2017-09-04 22:11 | Event Note ---
Event Note Event Note: Dr. Pierson([id number]) sent the EKGs to Dr. Santoro to review. Received a call back from Dr. Santoro and discussed about the management plan going forward. BP was stable, and pt didnt have any symptoms of chest pain, palpitations, lightheadedness. Reviewed the case with Dr. Santoro, who concurred that he might have had an incomplete tri-fascicular block, with differentials ranging from LenegreLev disease, age related or mass effect on the vagus nerve. If the pt is symptomatic with an incomplete trifascicular block, which is an indication for pacemaker insertion. This needs to be discussed w/ the pt before pursuing this avenue. If the pt has a complete trifascicular block, would need a pacemaker. At this time, since he is asymptomatic, he would be watched closely in the ICU. If he is bradycardic upto 30s, would try to give a dose of atropine. If he is persistently low < 30s, then would try to pace transcutaneously. Signed out to the night team to f/u with the EKGs closely, and discuss w/ Maude if there is any change in ST changes, as CA needs to be ruled out.
--- NOTE | 2017-09-04 23:54 | ULTRASOUND REPORT ---
EXAMINATION: Complete duplex ultrasound of the abdomen CLINICAL INDICATION: Concern for right portal vein obstruction. Abdominal pain. COMPARISON: CT from 09/04/2017 TECHNIQUE: Real-time abdominal ultrasound performed. Duplex Doppler ultrasound and pulse wave Doppler with spectral analysis were also performed. FINDINGS: There is a small volume of ascites. The liver is normal in size, with normal echogenicity. No focal liver lesions are seen. The lesion seen on prior CT is not visualized on this study. No evidence for intrahepatic biliary ductal dilatation. The main, right, and left portal veins demonstrate normal corrected hepato-petal venous waveforms. The right, middle, and left hepatic veins demonstrates normal hepatofugal venous waveforms. The splenic vein demonstrates normal direction of flow. No evidence for venous thrombosis. Hepatic arteries are poorly visualized. The right hepatic artery demonstrates normal waveform with appropriate flow. The gallbladder appears unremarkable without stones or colon cystitis. The common bile duct is of normal size, measuring 0.6 cm. The visualized portion of the pancreas appears unremarkable. Both kidneys are visualized and are normal in size, echogenicity, and cortical thickness. The right kidney measures 8.9 cm in the sagittal plane, the left kidney measures 8.6 cm in sagittal plane. There is no mass, calcification or hydronephrosis seen. There is mild renal pelvic fullness of the left kidney. The spleen appears unremarkable and measures 8.5 cm. The proximal abdominal aorta and IVC are normal in appearance. Trace left pleural effusion noted. IMPRESSION: No evidence of portal venous thrombus. Small volume of ascites.
[2017-09-05] VITALS: BP 120/76
[2017-09-05 02:34] LABS: ABSOLUTE BASOPHIL COUNT 0 /CUMM (0.0-0.2); ABSOLUTE EOSINOPHIL COUNT 0.2 /CUMM (0.0-0.7); ABSOLUTE GRANULOCYTE CT 4.1 /CUMM (1.4-6.5); ABSOLUTE LYMPH COUNT 0.7 /CUMM (1.2-3.4); ABSOLUTE MONOCYTE COUNT 0.3 /CUMM (0.10-0.60); BASOPHIL % 0.6 % (0.0-2.0); EOSINOPHIL % 3.4 % (0-5); GRANULOCYTE % 76.1 % (42.2-75.2); HEMATOCRIT 34.4 % (42-52); MEAN CORPUSCULAR HGB 29.9 PG (27.0-31.0); MEAN CORPUSCULAR HGB CONC 33.7 G/DL (33.0-37.0); MEAN CORPUSCULAR VOLUME 88.5 FL (80.0-94.0); PLATELET COUNT 215 /CUMM (130-400); RBC DISTRIBUTION WIDTH 13.1 % (11.5-14.5); RED BLOOD CELL CT 3.89 /CUMM (4.70-6.10); WHITE BLOOD CELL COUNT 5.4 /CUMM (4.8-10.8)
--- NOTE | 2017-09-05 07:34 | Cons- CRCU ---
Soham England 09/05/17 0733: General Information and HPI Consulting Request Date of Consult: 09/05/17 Requested By: Dr Downs Reason for Consult: bradycardia Source of Information: patient, family Exam Limitations: poor historian History of Present Illness: This is a 67-year-old gentleman with a past medical history significant for GERD and developmental delay, who comes in for chief complaint of persistent vomiting and heartburn. Patient had his home nursing career orientation teacher Diamond at bedside, who provided the majority of the history. Per patient, his symptoms of GERD started over a year ago, however they got significantly worse about 6 weeks ago. He started developing vomiting with every meal and about 2 weeks ago he went to see his PCP Dr. Vera. He was prescribed a PPI and given an antireflux diet. Patient states that neither intervention made change in his symptoms. Last time he vomited was on Monday night. After that, he states that he has been afraid to eat did not eat anything all of Monday. He states the vomiting occurs only with solid foods and seems to be better with smoothies or liquids. He states that his symptoms happen after just a few bites of food. He does not have any nausea or abdominal pain associated with the vomiting. Rather, he says his food does not go down; he gets a burning sensation in mid chest and then he throws it back up. Denies any coffee-ground emesis or hematemesis. He does endorse weight loss but cannot quantify the amount. Denies any headache , nausea, diarrhea, chest pain, shortness of breath, or weakness. Family history significant for throat cancer in 1 sibling and liver cancer in another. He denies any drinking, smoking or substance abuse. He currently does not work and stays at home on disability. During ED workup patient was found to be significantly hypotensive with blood pressure 72/40 requiring 3 L normal saline resuscitation. Additionally, he was noted to have bradycardia into the 30s along with the hypotension. Patient denies any dizziness, change in vision, palpitation or chest pain. He denies any previous history of bradycardia, or recent change in medications. Given His persistent bradycardia patient was transferred to ICU. Allergies/Medications Allergies: Coded Allergies: No Known Allergies (09/04/17) Home Med List: Omeprazole 40 MG CAPSULE. 1 CAP PO DAILY GI (Reported) Current Medications: Current Medications Sig/Triston Start time Last Medication Dose Route Stop Time Status Admin Acetaminophen 650 MG Q6P PRN 09/04 1600 AC PO Atropine Sulfate 0.5 MG ONCE PRN 09/04 1800 AC IV Dextrose/Sodium 1,000 ML Q13H 09/04 1800 AC 09/05 Chloride IV 0510 Enoxaparin Sodium 40 MG DAILY 09/05 0900 AC 09/05 SC 1017 Ibuprofen 600 MG Q6P PRN 09/04 1600 DC PO Oxycodone/ 1 TAB Q6P PRN 09/04 1600 DC Acetaminophen PO Pantoprazole Sodium 40 MG BID 09/04 2100 AC 09/05 IV 0747 Sodium Chloride 1,000 ML BOLUS ONE 09/04 1345 DC 09/04 IV 09/04 1444 1347 Sodium Chloride 1,000 ML BOLUS ONE 09/04 1100 DC 09/04 IV 09/04 1159 1056 Review of Systems Review of Systems Constitutional: Reports: weakness. Denies: see HPI, chills, diaphoresis, fever, malaise, unexplained weight loss. EENTM: Denies: blurred vision, double vision. Cardiovascular: Denies: chest pain, edema, orthopena, palpitations, peripheral edema, syncope. Respiratory: Denies: cough, hemoptysis, orthopnea, short of breath, sputum production, stridor, wheezing. GI: Reports: vomiting. Denies: abdominal pain, bloating, constipation. Genitourinary: Denies: discharge, dysuria, frequency. Neurological/Psychological: Denies: anxiety, ataxia. Past History Travel History Traveled to [place] past 21 day No Medical History Neurological: Beginning dementia by report of home health aide. 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 Home Services at Home: Home Health Aide Primary Language: Korean Smoking Status: Former Smoker ETOH Use: denies use Illicit Drug Use: denies illicit drug use Living Will? no Functional Ability Ambulation: independent Exam & Diagnostic Data Last 24 Hrs of Vital Signs/I&O Vital Signs Date Time Temp Pulse Resp B/P B/P Pulse O2 O2 Flow FiO2 Mean Ox Delivery Rate 05/08 0800 98.2 43 20 110/80 96 Room Air 09/05 0000 97.2 42 16 120/76 99 Room Air Room Air 09/04 1713 97.4 40 18 118/64 98 09/04 1425 98.0 42 20 124/85 98 Room Air 09/04 1333 45 20 120/75 98 Room Air 09/04 1312 50 20 105/68 99 Room Air 09/04 1230 98.4 50 20 110/72 99 Room Air Intake & Output 09/05 1600 09/05 0800 05 0000 Intake Total 680 415 Output Total 300 0 Balance 380 415 Intake, IV 680 415 Intake, Oral 0 0 Output, Urine 300 0 Patient 45.388 kg 45.898 kg 45.388 kg Weight Weight Bed scale Bed scale Bed scale Measurement Method Physical Exam General Appearance: well developed/nourished, no apparent distress, alert, awake Other Physical Findings: HEENT Atraumatic, PERRLA, EOMI, patient has white plaque on the roof of his mouth over his dentures. Neck Supple Cardiovascular Normal S1, Normal S2, No Murmurs, bradycardia Lungs Clear to Auscultation, Normal Air Movement Abdomen Normal Bowel Sounds, No Tenderness, cachectic abdomen, liver and spleen palpable Neurological Normal Speech Extremities No Clubbing, No Cyanosis, No Edema, Normal Pulses, No Tenderness/ Swelling Vascular Normal Pulses, Pulses Symmetrical Last 48 Hrs of Labs/Rasheed: Laboratory Tests 09/05/17 0200: Troponin I < 0.01 09/05/17 0200: Anion Gap 9, Estimated GFR > 60, BUN/Creatinine Ratio 28.6 H, CBC w Diff NO MAN DIFF REQ, RBC 3.89 L, MCV 88.5, MCH 29.9, MCHC 33.7, RDW 13.1, MPV 8.0, Gran % 76.1 H, Lymphocytes % 13.6 L, Monocytes % 6.3, Eosinophils % 3.4, Basophils % 0.6, Absolute Granulocytes 4.1, Absolute Lymphocytes 0.7 L, Absolute Monocytes 0.3, Absolute Eosinophils 0.2, Absolute Basophils 0 09/04/172146: Lyme Disease Antibody Cancelled 09/04/171951: Troponin I < 0.01 09/04/171951: Lactic Acid 0.9 09/04/17 1511: Urine Opiates Screen < 100, Methadone Screen < 40, Barbiturate Screen < 60, Ur Phencyclidine Scrn < 6.00, Amphetamines Screen < 100, U Benzodiazepines Scrn < 85, Urine Cocaine Screen < 50, Urine Cannabis Screen < 5.00, Urine Color YEL, Urine Clarity CLEAR, Urine pH 5.5, Ur Specific [place] <= 1.005, Urine Protein NEG, Urine Ketones NEG, Urine Nitrite NEG, Urine Bilirubin NEG, Urine Urobilinogen 0.2, Ur Leukocyte Esterase NEG, Ur Microscopic EXAM NOT REQUIRED, Urine Hemoglobin NEG, Urine Glucose NEG 09/04/17 1041: Lyme Disease Antibody Pending 09/04/17 1041: Anion Gap 13, Estimated GFR > 60, BUN/Creatinine Ratio 30.0 H, Glucose 79, Lactic Acid 1.0, Calcium 9.1, Magnesium 1.8, Total Bilirubin 0.7, AST 27, ALT 25 , Alkaline Phosphatase 58, Troponin I < 0.01, Total Protein 6.7, Albumin 3.8, Globulin 2.9, Albumin/Globulin Ratio 1.3, Lipase 38, TSH &T3 &Free T4 Intrp 3.710, PT 11.6, INR 1.06, APTT 26, CBC w Diff NO MAN DIFF REQ, RBC 4.31 L, MCV 89.8, MCH 29.3, MCHC 32.7 L, RDW 13.2, MPV 8.1, Gran % 76.1 H, Lymphocytes % 13.1 L, Monocytes % 7.5, Eosinophils % 3.0, Basophils % 0.3, Absolute Granulocytes 4.3, Absolute Lymphocytes 0.7 L, Absolute Monocytes 0.4, Absolute Eosinophils 0.2, Absolute Basophils 0, HIV 1&2 Ab Western Blot NONREACTIVE Assessment/Plan CRCU Impression/Plan: 1. Bradycardia: Patient was found to have a bradycardia with heart rate varying between 35-40 in the emergency room. He seemed to improve after getting atropine 1 in the ED however, when he came back to the floors he started going into the 30s again while remaining completely awake, asymptomatic and conversant. His EKG reveals sinus bradycardia at 44 bpm with right bundle branch block and left anterior fascicular block. Troponins were negative. Serial EKGs continued to show sinus Catia with right bundle branch block and left anterior fascicular block. * Transferred to ICU * Sinus bradycardia with hypotension possible differential bifascicular block- right bundle branch block and left anterior fascicular block. * Cardiothoracic surgeon Dr. Sidhu on board * Planning to get permanent pacemaker on 09/06/2017 * Nothing by mouth tonight * Atropine at bedside * Transcutaneous pacing if needed for symptomatic bradycardia * monitor for any chest pain, palpitations, lightheadedness, sob, dizzyness. * f/u Lyme panel * Monitor electrolytes * Appreciate cardio input * Echo * Thyroid function tests in normal limits 2. Hypotension: Unsure of etiology but it seemed to resolve after 3 L of fluid. * Continue to monitor 3. Vomiting/dysphagia: CT abdomen and pelvis with contrast shows ?enteritis and ?streak artifact in the right portal vein. However the description of his symptoms seemed primarily esophageal given the dysphasia is with solids. Liver function tests in normal limits. Lipase was normal. Ultrasound abdomen Doppler was done which showed no evidence of portal venous thrombosis. Small volume of ascites was found. * N.p.o. * Swallow eval/barium swallow * GI consulted based on his CAT scan findings which showed esophageal dilatation with distal tapering, raising the question of achalasia, distal esophageal stricture or mass, scleroderma or, less likely, Chagas disease. * Continue Protonix 40 twice a day * Continue gentle hydration 4. On physical exam he did have some leukoplakia versus oral thrush finding on the hard palate of his dentures. * HIV neg 5. X-ray finding of a 2 cm mass in left midlung: Patient states that he has never smoked but given his weight loss, cachectic appearance, dysphagia there is concern for malignancy. * CT chest -no masses or nodules seen. There is mid linear scar, subsegmental atelectasis at the posterior left base. No mediastinal or hilar adenopathy. No thoracic aortic aneurysm. Full code Chemical DVT prophylaxis-lovenox and alps N.P.O Consult Acknowledgment - Thank you for your consult request. Yaakov Gallardo MD 09/05/17 1134: Assessment/Plan CRCU Other Findings/Comments: Yaakov Miller M.D. have examined this patient, reviewed available EMR data, personally reviewed images, discussed with resident/PA/TIRE INSPECTOR, discussed management plan with housestaff and nursing staff, discussed managment plan all of healthcare providers, discussed management plan with patient and/or family, agreed with resident/PA/TIRE INSPECTOR. The past history and parts of the chart have been autopopulated. Impression 67-year-old man * sinus bradycardia with bifascicular block - resolved hypotension * ?lung mass Plan -PPM per cardiology -monitor in icu -ct chest without contrast to evaluate left midlung lesion seen on cxr DVT prophylaxis at all times TTS 35 min Consult Acknowledgment - Thank you for your consult request.
[2017-09-05 08:00] VITALS: BP 110/80
--- NOTE | 2017-09-05 11:27 | PN- Cardiology ---
Subjective Subjective: Hypotension improved after IV fluid. The patient was bradycardic overnight with heart rates in the 30s. No chest pain. No palpitations. No shortness of breath. No diaphoresis. No nausea or vomiting Objective Vital Signs and I&Os Vital Signs Date Time Temp Pulse Resp B/P B/P Pulse O2 O2 Flow FiO2 Mean Ox Delivery Rate 09/06 799 98.2 43 20 110/80 96 Room Air 09/05 0000 97.2 42 16 120/76 99 Room Air Room Air 09/04 1713 97.4 40 18 118/64 98 / 1425 98.0 42 20 124/85 98 Room Air 09/04 1333 45 20 120/75 98 Room Air 09/04 1312 50 20 105/68 99 Room Air 09/04 1230 98.4 50 20 110/72 99 Room Air 09/04 1144 98.4 55 20 123/81 98 Room Air Intake & Output 09/05 1600 09/05 0809/05 0000 09/04 1600 09/04 0800 09/04 0000 Intake Total 382 176 8652 Output Total 300 0 Balance 349 055 3781 Intake, IV 127 171 0594 Intake, Oral 0 0 Output, Urine 300 0 Patient 100 lb 101 lb 100 lb Weight Weight Bed scale Bed scale Bed scale Measurement Method Physical Exam: Gen: NAD HEENT: normal Lungs: clear to auscultation, normal resp. effort Heart: RRR, S1, S2, no murmurs Abdomen: Soft, nontender, no masses Extremities: No clubbing, cyanosis, or edema. Neuro: Alert and oriented x 3, cranial nerves intact Current Medications: Current Medications Sig/Triston Start time Last Medication Dose Route Stop Time Status Admin Acetaminophen 650 MG Q6P PRN 09/04 1600 AC PO Atropine Sulfate 0.5 MG ONCE PRN 09/04 1800 AC IV Dextrose/Sodium 1,000 ML Q13H 09/04 1800 AC 09/05 Chloride IV 0510 Enoxaparin Sodium 40 MG DAILY 09/05 0900 AC 09/05 SC 1017 Ibuprofen 600 MG Q6P PRN 09/04 1600 DC PO Oxycodone/ 1 TAB Q6P PRN 09/04 1600 DC Acetaminophen PO Pantoprazole Sodium 40 MG BID 09/04 2100 AC 09/05 IV 0747 Sodium Chloride 1,000 ML BOLUS ONE 09/04 1345 DC 09/04 IV 09/04 1444 1347 Sodium Chloride 1,000 ML BOLUS ONE 09/04 1100 DC 09/04 IV 09/04 1159 1056 Sodium Chloride 1,000 ML BOLUS ONE 09/04 1030 DC 09/04 IV 09/04 1129 1056 Results Last 48 Hrs of Labs/Mics: Laboratory Tests 09/05/17 0200: Troponin I < 0.01 09/05/17 0200: Anion Gap 9, Estimated GFR > 60, BUN/Creatinine Ratio 28.6 H, CBC w Diff NO MAN DIFF REQ, RBC 3.89 L, MCV 88.5, MCH 29.9, MCHC 33.7, RDW 13.1, MPV 8.0, Gran % 76.1 H, Lymphocytes % 13.6 L, Monocytes % 6.3, Eosinophils % 3.4, Basophils % 0.6, Absolute Granulocytes 4.1, Absolute Lymphocytes 0.7 L, Absolute Monocytes 0.3, Absolute Eosinophils 0.2, Absolute Basophils 0 09/04/172146: Lyme Disease Antibody Cancelled 09/04/171951: Troponin I < 0.01 09/04/171951: Lactic Acid 0.9 09/04/17 1511: Urine Opiates Screen < 100, Methadone Screen < 40, Barbiturate Screen < 60, Ur Phencyclidine Scrn < 6.00, Amphetamines Screen < 100, U Benzodiazepines Scrn < 85, Urine Cocaine Screen < 50, Urine Cannabis Screen < 5.00, Urine Color YEL, Urine Clarity CLEAR, Urine pH 5.5, Ur Specific [place] <= 1.005, Urine Protein NEG, Urine Ketones NEG, Urine Nitrite NEG, Urine Bilirubin NEG, Urine Urobilinogen 0.2, Ur Leukocyte Esterase NEG, Ur Microscopic EXAM NOT REQUIRED, Urine Hemoglobin NEG, Urine Glucose NEG 09/04/17 1041: Lyme Disease Antibody Pending 09/04/17 1041: Anion Gap 13, Estimated GFR > 60, BUN/Creatinine Ratio 30.0 H, Glucose 79, Lactic Acid 1.0, Calcium 9.1, Magnesium 1.8, Total Bilirubin 0.7, AST 27, ALT 25 , Alkaline Phosphatase 58, Troponin I < 0.01, Total Protein 6.7, Albumin 3.8, Globulin 2.9, Albumin/Globulin Ratio 1.3, Lipase 38, TSH &T3 &Free T4 Intrp 3.710, PT 11.6, INR 1.06, APTT 26, CBC w Diff NO MAN DIFF REQ, RBC 4.31 L, MCV 89.8, MCH 29.3, MCHC 32.7 L, RDW 13.2, MPV 8.1, Gran % 76.1 H, Lymphocytes % 13.1 L, Monocytes % 7.5, Eosinophils % 3.0, Basophils % 0.3, Absolute Granulocytes 4.3, Absolute Lymphocytes 0.7 L, Absolute Monocytes 0.4, Absolute Eosinophils 0.2, Absolute Basophils 0, HIV 1&2 Ab Western Blot NONREACTIVE Recent Imaging Studies: EKG tracing is independently reviewed, and reveals sinus bradycardia at 44 bpm with right bundle branch block and left anterior fascicular block Assessment/Plan Assessment/Plan Assessment: 1. Nausea and vomiting, possible gastroenteritis 2. Sinus bradycardia with hypotension and bifascicular block 3. Possible lung mass Plan: * Monitor in ICU. * Transcutaneous pacing if needed for symptomatic bradycardia * Consult Dr. Sidhu for permanent pacemaker placement * Echocardiogram Continue telemetry? Yes
--- NOTE | 2017-09-05 13:25 | Cons- Thoracic Surgery ---
General Information and HPI Consulting Request Date of Consult: 09/05/17 Requested By: Yaakov Gallardo MD Reason for Consult: Symptomatic bradycardia. Evaluate for pacemaker placement Source of Information: old records, PCP Exam Limitations: dementia, poor historian History of Present Illness: The patient is a 67-year-old gentleman who presented to the emergency room with complaints of nausea and vomiting and is accompanied by his straightedge man. During the course of his evaluation he is found to have a significant bradycardia and was fairly hypotensive. He has been moved to the intensive care unit recommendation is being made for permanent pacemaker placement in the setting of hypertension associated with significant bradycardia. Allergies/Medications Allergies: Coded Allergies: No Known Allergies (09/04/17) Home Med List: Omeprazole 40 MG CAPSULE.DR 1 CAP PO DAILY GI (Reported) Current Medications: Current Medications Sig/Triston Start time Last Medication Dose Route Stop Time Status Admin Acetaminophen 650 MG Q6P PRN 09/04 1600 AC PO Atropine Sulfate 0.5 MG ONCE PRN 09/04 1800 AC IV Dextrose/Sodium 1,000 ML Q13H 09/04 1800 AC 09/05 Chloride IV 0510 Enoxaparin Sodium 40 MG DAILY 09/05 0900 AC 09/05 SC 1017 Ibuprofen 600 MG Q6P PRN 09/04 1600 DC PO Oxycodone/ 1 TAB Q6P PRN 09/04 1600 DC Acetaminophen PO Pantoprazole Sodium 40 MG BID 09/04 2100 AC 09/05 IV 0747 Sodium Chloride 1,000 ML BOLUS ONE 09/04 1345 DC 05/ IV 09/04 1444 1347 Past History Medical History Neurological: Beginning dementia by report of home health aide. EENT: NONE Cardiovascular: unspecified heart rate issue Respiratory: NONE Gastrointestinal: GERD Hepatic: NONE Renal: NONE Musculoskeletal: NONE Psychiatric: NONE Endocrine: NONE Blood Disorders: NONE Cancer(s): NONE FLAGMAN/Reproductive: NONE Surgical History Pertinent Surgical History: 1 Psychosocial History Where Do You Live? Home Services at Home: Home Health Aide Primary Language: Lao Smoking Status: Former Smoker ETOH Use: denies use Illicit Drug Use: denies illicit drug use Living Will? no Functional Ability Ambulation: independent Review of Systems Review of Systems: Review of systems notable for the nausea and vomiting which is now resolved. He has had no chest pain and there have been no describe syncopal episodes. He does not attest to any presyncopal type symptoms. He has had no palpitations. There have been no fevers night sweats or chills. The rest of his 12 point review of systems is unremarkable. Exam & Diagnostic Data Vital Signs and I&O Vital Signs Date Time Temp Pulse Resp B/P B/P Pulse O2 O2 Flow FiO2 Mean Ox Delivery Rate 09/06 799 98.2 43 20 110/80 96 Room Air 09/05 0000 97.2 42 16 120/76 99 Room Air Room Air 09/04 1713 97.4 40 18 118/64 98 09/04 1425 98.0 42 20 124/85 98 Room Air 09/04 1333 45 20 120/75 98 Room Air Intake & Output 09/05 0000 09/04 1600 09/04 0000 Intake Total 853 810 7562 Output Total 300 0 Balance 451 855 7191 Intake, IV 798 359 5315 Intake, Oral 0 0 Output, Urine 300 0 Patient 100 lb 101 lb 100 lb Weight Weight Bed scale Bed scale Bed scale Measurement Method Physical Exam: On physical examination he appears well. His skin is warm and well perfused no suspicious lesions noted. The sclerae are anicteric and his mucous membranes are moist. There is no cervical or subclavicular lymphadenopathy. His breath sounds are clear and full bilaterally with no wheezes rhonchi noted. The cardiac exam shows regular rhythm and rate with a sinus bradycardia with a rate in the 40s. His abdomen is soft and nontender with no masses. The periphery shows no cyanosis clubbing or edema. His neurologic exam is grossly normal motor and sensory function. Last 24 Hours of Labs: Laboratory Tests 09/05 09/05 09/04 0200 0200 2147 Chemistry Sodium (137 - 145 mmol/L) 137 Potassium (3.5 - 5.1 mmol/L) 3.7 Chloride (98 - 107 mmol/L) 104 Carbon Dioxide (22 - 30 mmol/L) 24 Anion Gap (5 - 16) 9 BUN (9 - 20 mg/dL) 20 Creatinine (0.7 - 1.2 mg/dL) 0.7 Estimated GFR (>60 ml/min) > 60 BUN/Creatinine Ratio (7 - 25 %) 28.6 H Troponin I (<0.11 ng/ml) < 0.01 Hematology CBC w Diff NO MAN DIFF REQ WBC (4.8 - 10.8 /CUMM) 5.4 RBC (4.70 - 6.10 /CUMM) 3.89 L Hgb (14.0 - 18.0 G/DL) 11.6 L Hct (42 - 52 %) 34.4 L MCV (80.0 - 94.0 FL) 88.5 MCH (27.0 - 31.0 PG) 29.9 MCHC (33.0 - 37.0 G/DL) 33.7 RDW (11.5 - 14.5 %) 13.1 Plt Count (130 - 400 /CUMM) 215 MPV (7.4 - 10.4 FL) 8.0 Gran % (42.2 - 75.2 %) 76.1 H Lymphocytes % (20.5 - 51.1 %) 13.6 L Monocytes % (1.7 - 9.3 %) 6.3 Eosinophils % (0 - 5 %) 3.4 Basophils % (0.0 - 2.0 %) 0.6 Absolute Granulocytes (1.4 - 6.5 /CUMM) 4.1 Absolute Lymphocytes (1.2 - 3.4 /CUMM) 0.7 L Absolute Monocytes (0.10 - 0.60 /CUMM) 0.3 Absolute Eosinophils (0.0 - 0.7 /CUMM) 0.2 Absolute Basophils (0.0 - 0.2 /CUMM) 0 Serology Lyme Disease Antibody Cancelled 09/04 1511 Chemistry Lactic Acid (0.7 - 2.1 mmol/L) 0.9 Troponin I (<0.11 ng/ml) < 0.01 Toxicology Urine Opiates Screen (>2000 NG/ML) < 100 Methadone Screen (>300 NG/ML) < 40 Barbiturate Screen (>200 NG/ML) < 60 Ur Phencyclidine Scrn (>25 NG/ML) < 6.00 Amphetamines Screen (>1000 NG/ML) < 100 U Benzodiazepines Scrn (>200 NG/ML) < 85 Urine Cocaine Screen (>300 NG/ML) < 50 Urine Cannabis Screen (>50 NG/ML) < 5.00 Urines Urine Color (YEL,AMB,STR) YEL Urine Clarity (CLEAR) CLEAR Urine pH (5.0 - 8.0) 5.5 Ur Specific [place] (1.001 - 1.035) <= 1.005 Urine Protein (NEG,<30 MG/DL) NEG Urine Ketones (NEG) NEG Urine Nitrite (NEG) NEG Urine Bilirubin (NEG) NEG Urine Urobilinogen (0.1 - 1.0 EU/dl) 0.2 Ur Leukocyte Esterase (NEG) NEG Ur Microscopic EXAM NOT REQUIRED Urine Hemoglobin (NEG) NEG Urine Glucose (N MG/DL) NEG Imaging Results: Chest x-ray shows a 2 cm indistinct density in the mid left lung field. Other Results: EKG tracings show a sinus bradycardia with a right bundle branch and a left anterior fascicular block. Assessment/Plan Assessment/Plan Patient is a 67-year-old gentleman who on admission is showing significant bradycardia and had a blood pressure in the 70s. Resuscitation is allowed for stabilization of his blood pressure. With this degree of bradycardia and hypotension I think a permanent pacemaker is indicated. The patient does not give consent so I talked to his brother Arnav who is power of employment law attorney. I explained the risks and benefits of a pacemaker which will be an MRI compatible pacemaker. I described the common risks of this procedure which are bleeding infection pneumothorax and cardiac chamber perforation. He understands and agrees to the procedure for his brother. We will proceed tomorrow with an MRI compatible dual-chamber pacemaker. Consult Acknowledgment - Thank you for your consult request.
--- NOTE | 2017-09-05 14:40 | CT SCAN REPORT ---
EXAMINATION: CT CHEST WITHOUT CONTRAST CLINICAL INFORMATION: Weight loss. COMPARISON: None. TECHNIQUE: Multidetector volumetric CT imaging of the chest was done. Axial MIP volume rendering provided. Sagittal and coronal reformatted images were obtained. DLP: 198.61 mGy-cm FINDINGS: OPEN SOURCE DEVELOPER: There is hyperinflation. The lungs are grossly clear. The heart size is least top normal. LUNGS: No mass or nodule seen. There is bilateral dependent hypoaeration. There is mild linear scar/subsegmental atelectasis at the posterior left base. No focal infiltrate or groundglass opacity is seen. There is biapical scarring. No generalized increase is seen in peripheral interlobular septal markings. No bleb or bullous formation is seen. The central airways appear patent. MEDIASTINUM: The thyroid is unremarkable. There is no sizable mediastinal or hilar adenopathy. No thoracic aortic aneurysm is seen. There is dilatation of the esophagus, with distal narrowing (601:40). PLEURA: There are small bilateral pleural effusions. No pericardial effusion is seen. No pleural mass or thickening. AXILLA: No lymphadenopathy. UPPER ABDOMEN: There is incompletely characterized by mild biliary ductal dilatation. Question mild residual contrast within the left included portions of the urinary collecting structures from the prior CT abdomen and pelvis of 09/04/2017. OSSEOUS STRUCTURES: There is multi-level marked thoracic and upper lumbar spondylosis, appearance suggesting possible DISH (diffuse idiopathic skeletal hyperostosis). No acute or aggressive osseous abnormality seen. IMPRESSION: 1. There is mild left base linear scar/subsegmental atelectasis. 2. No pulmonary mass or nodule is seen. 3. No mediastinal or hilar adenopathy is seen. 4. There are small bilateral pleural effusions. 5. There is esophageal dilatation with distal tapering, raising the question of achalasia, distal esophageal stricture or mass, scleroderma or, less likely, Chagas disease. This can be more fully evaluated with a barium swallow, if clinically indicated.
[2017-09-05 16:00] VITALS: BP 126/82
--- NOTE | 2017-09-05 17:18 | Transfer of Care Summary ---
See Addendum Hospital Course Course Hospital Course: This is a 67-year-old gentleman with a past medical history significant for GERD and developmental delay, who comes in for chief complaint of persistent vomiting and heartburn. During ED workup patient was found to be significantly hypotensive with blood pressure 72/40 requiring 3 L normal saline resuscitation. Additionally, he was noted to have bradycardia into the 30s along with the hypotension. Patient denies any dizziness, change in vision, palpitation or chest pain. He denies any previous history of bradycardia, or recent change in medications. Given His persistent bradycardia patient was transferred to ICU. ----- 1. Asymptomatic Bradycardia: Patient was found to have a bradycardia with heart rate varying between 35-40 in the emergency room. He seemed to improve after getting atropine 1 in the ED however, when he came back to the floors he started going into the 30s again while remaining completely awake, asymptomatic and conversant. His EKG reveals sinus bradycardia at 44 bpm with right bundle branch block and left anterior fascicular block. Troponins were negative. Serial EKGs continued to show sinus Catia with right bundle branch block and left anterior fascicular block. He was transferred to ICU on 09/04/2017. He was found to have Sinus bradycardia with hypotension possible differential bifascicular block-right bundle branch block and left anterior fascicular block. He was evaluated by district resource officer Dr. Santoro. Recommended to get permanent pacemaker. Atropine placed at bedside, transcutaneous pacing if needed for symptomatic Bradd was planned. Lyme panel was negative. Cardiothoracic surgeon Dr. Sidhu on board, Planning to get permanent pacemaker on 09/06/2017 2. Hypotension: Unsure of etiology but it seemed to resolve after 3 L of fluid. Continued to monitor 3. Vomiting/dysphagia: CT abdomen and pelvis with contrast shows ?enteritis and ?streak artifact in the right portal vein. However the description of his symptoms seemed primarily esophageal given the dysphasia is with solids. Liver function tests in normal limits. Lipase was normal. Ultrasound abdomen Doppler was done which showed no evidence of portal venous thrombosis. Small volume of ascites was found. GI was consulted based on his CAT scan findings which showed esophageal dilatation with distal tapering, raising the question of achalasia, distal esophageal stricture or mass, scleroderma or, less likely, Chagas disease. Continued Protonix 40 twice a day 4. On physical exam he did have some leukoplakia versus oral thrush finding on the hard palate of his dentures. * HIV neg 5. X-ray finding of a 2 cm mass in left midlung: Patient states that he has never smoked but given his weight loss, cachectic appearance, dysphagia - there is concern for malignancy. Given that x-ray finding of 2 cm mass mid lung left side, CT chest was done which showed no masses or nodules. There is mid linear scar, subsegmental atelectasis at the posterior left base. No mediastinal or hilar adenopathy. No thoracic aortic aneurysm. Full code Chemical DVT prophylaxis-lovenox and alps N.P.O Assessment/Plan: .
[2017-09-06] VITALS: BP 104/82
[2017-09-06 05:24] LABS: ABSOLUTE BASOPHIL COUNT 0 /CUMM (0.0-0.2); ABSOLUTE EOSINOPHIL COUNT 0.2 /CUMM (0.0-0.7); ABSOLUTE GRANULOCYTE CT 3.2 /CUMM (1.4-6.5); ABSOLUTE LYMPH COUNT 0.6 /CUMM (1.2-3.4); ABSOLUTE MONOCYTE COUNT 0.3 /CUMM (0.10-0.60); BASOPHIL % 0.6 % (0.0-2.0); EOSINOPHIL % 4.7 % (0-5); GRANULOCYTE % 74.1 % (42.2-75.2); HEMATOCRIT 35.5 % (42-52); MEAN CORPUSCULAR HGB 29.7 PG (27.0-31.0); MEAN CORPUSCULAR HGB CONC 33.4 G/DL (33.0-37.0); MEAN CORPUSCULAR VOLUME 88.7 FL (80.0-94.0); MEAN PLATELET VOLUME 8.3 FL (7.4-10.4); PLATELET COUNT 204 /CUMM (130-400); RBC DISTRIBUTION WIDTH 13.6 % (11.5-14.5); RED BLOOD CELL CT 4.01 /CUMM (4.70-6.10); WHITE BLOOD CELL COUNT 4.3 /CUMM (4.8-10.8)
--- NOTE | 2017-09-06 07:28 | PN- Resident CRCU ---
Subjective HPI/CRCU Issues: Patient seen and examined, lying in the bed comfortable with no acute distress, he denies any chest pain, shortness of breath, palpitation, vision changes, or shortness of breath. Vitals remained stable overnight, his heart rate ranged between 40-49 bpm 24 Hour Events: No events Objective Vital Signs & I&O Last 8 Hrs of Vitals and I&O: Intake & Output 09/06 1600 Intake Total Output Total Balance Patient 98 lb 8.75 oz Weight Exam General Appearance: no apparent distress, alert, awake, comfortable Head: atraumatic, normal appearance Neck: normal inspection, supple Respiratory: no respiratory distress Cardiovascular: No edema Gastrointestinal: normal bowel sounds, soft, non-tender Extremities: no edema Cranial Nerves: PERRL IV (Peripheral) Still Needed? Yes Nutrition Nutrition: NPO Current Medications: Current Medications Sig/Triston Start time Last Medication Dose Route Stop Time Status Admin Acetaminophen 650 MG Q6P PRN 09/04 1600 AC PO Atropine Sulfate 0.5 MG ONCE PRN 09/04 1800 AC IV Dextrose/Sodium 1,000 ML Q13H 09/04 1800 AC 09/06 Chloride IV 1000 Enoxaparin Sodium 40 MG DAILY 09/05 0900 AC 09/05 SC 1017 Famotidine 20 MG ONCE ONE 09/05 1615 DC 09/05 IV 09/05 1616 1819 Famotidine 20 MG ONCE ONE 09/05 1530 CAN PO 09/05 1531 Magnesium Sulfate 1 GM Q2H 09/06 0745 AC 09/06 Dextrose/Water 100 ML IV 09/06 1144 0945 Pantoprazole Sodium 40 MG BID 09/04 2100 AC 09/06 IV 1019 Potassium Chloride 10 MEQ Q1H 09/06 0730 DC 09/06 IV 09/06 0831 0945 Impression/Plan Impression/Problem List Impression: This is a 67-year-old gentleman with a past medical history significant for GERD and developmental delay, who comes in for chief complaint of persistent vomiting and heartburn. During ED workup patient was found to be significantly hypotensive with blood pressure 72/40 requiring 3 L normal saline resuscitation. Additionally, he was noted to have bradycardia into the 30s along with the hypotension. Patient denies any dizziness, change in vision, palpitation or chest pain. He denies any previous history of bradycardia, or recent change in medications. Given His persistent bradycardia patient was transferred to ICU. Patient seen by product engineering manager who recommended to place permanent pacemaker, patient is nothing by mouth for pacemaker placement today. Problem List: 1. Nausea and vomiting 2. Symptomatic bradycardia Pain Ratin Tomorrow's Labs & Rationales: icu lab bundle Plan Respiratory: * Currently on RA with O2 sat of 97% * X-ray finding of a 2 cm mass in left midlung: Patient states that he has never smoked but given his weight loss, cachectic appearance, dysphagia - there is concern for malignancy. Given that x-ray finding of 2 cm mass mid lung left side, CT chest was done which showed no masses or nodules. There is mid linear scar, subsegmental atelectasis at the posterior left base. No mediastinal or hilar adenopathy. No thoracic aortic aneurysm. Infectious Diseases: On physical exam he did have some leukoplakia versus oral thrush finding on the hard palate of his dentures. * HIV neg * No fever or leukocytosis Cardiovascular: Asymptomatic Bradycardia: Patient was found to have a bradycardia with heart rate varying between 35-40 in the emergency room. He seemed to improve after getting atropine 1 in the ED however, when he came back to the floors he started going into the 30s again while remaining completely awake, asymptomatic and conversant. His EKG reveals sinus bradycardia at 44 bpm with right bundle branch block and left anterior fascicular block. Troponins were negative. Serial EKGs continued to show sinus Altaf with right bundle branch block and left anterior fascicular block. He was transferred to ICU on 09/04/2017. He was found to have Sinus bradycardia with hypotension possible differential bifascicular block-right bundle branch block and left anterior fascicular block. He was evaluated by product engineering manager Dr. Santoro. Recommended to get permanent pacemaker. Atropine placed at bedside, transcutaneous pacing if needed for symptomatic Bradd was planned. Lyme panel was negative. Cardiothoracic surgeon Dr. Sidhu on board, Planning to get permanent pacemaker today. Hematology: * Normocytic anemia, stable Metabolic: * Hypokalemia and hypomagnesemia repleted * We'll repeat ICU LAP-BAND dose tomorrow * Per his brother Mr. Arnav ricketts he mentioned that the patient lost about 50 pounds over the last 4-6 weeks and he is very concerned about weight loss P wanted him to be seen by instrument specialist for evaluation. Alimentary: Vomiting/dysphagia: CT abdomen and pelvis with contrast shows ?enteritis and ? streak artifact in the right portal vein. However the description of his symptoms seemed primarily esophageal given the dysphasia is with solids. Liver function tests in normal limits. Lipase was normal. Ultrasound abdomen Doppler was done which showed no evidence of portal venous thrombosis. Small volume of ascites was found. * GI was consulted based on his CAT scan findings which showed esophageal dilatation with distal tapering, raising the question of achalasia, distal esophageal stricture or mass, scleroderma or, less likely, Chagas disease. Continued Protonix 40 twice a da, waiting for GI input today * For now patient is nothing by mouth for pacemaker placement today Neurological: * DVT/Prophylaxis: mechanical, pharmacological Code Status: Full Code Other: Patient brother Mr. Arnav Ricketts is the appointed conservator for the patient, he can be reached at [phone]. Conservator also mentioned that information can be released to patient's daughter in law Jessica. Patient's also can be reached at [phone].
[2017-09-06 08:00] VITALS: BP 108/70
--- NOTE | 2017-09-06 09:06 | PN- CRCU ---
Subjective HPI/Critical Care Issues: Stable this am NPO and going for pacemaker No other complaints Still triston Objective Current Medications: Current Medications Sig/[place] Start time Last Medication Dose Route Stop Time Status Admin Acetaminophen 650 MG Q6P PRN 09/04 1600 AC PO Atropine Sulfate 0.5 MG ONCE PRN 09/04 1800 AC IV Dextrose/Sodium 1,000 ML Q13H 09/04 1800 AC 09/06 Chloride IV 0115 Enoxaparin Sodium 40 MG DAILY 09/05 0900 AC 09/05 SC 1017 Famotidine 20 MG ONCE ONE 09/05 1615 DC 09/05 IV 09/05 1616 1819 Famotidine 20 MG ONCE ONE 09/05 1530 CAN PO 09/05 1531 Magnesium Sulfate 1 GM Q2H 09/06 0745 AC 09/06 Dextrose/Water 100 ML IV 09/06 1144 0848 Pantoprazole Sodium 40 MG BID 09/04 2100 AC 09/05 IV 2014 Potassium Chloride 10 MEQ Q1H 09/06 0730 DC 09/06 IV 09/06 0831 0837 Vital Signs & I&O Last 24 Hrs of Vitals and I&O: Vital Signs Date Time Temp Pulse Resp B/P B/P Pulse O2 O2 Flow FiO2 Mean Ox Delivery Rate 09/06 0400 97 Room Air 05/ 0000 100 Room Air 05 0000 99.2 49 16 104/82 100 Room Air 09/05 1600 98.3 43 22 126/82 96 Room Air Intake & Output 09/06 1600 09/06 0800 05 0000 Intake Total 1630 800 Output Total 900 Balance 730 800 Intake, IV 1630 800 Number 0 Bowel Movements Output, Urine 900 Patient 98 lb 9 oz Weight Weight Bed scale Measurement Method Laboratory Tests 09/06 09/05 0420 0200 Chemistry Sodium (137 - 145 mmol/L) 135 L Potassium (3.5 - 5.1 mmol/L) 3.3 L Chloride (98 - 107 mmol/L) 104 Carbon Dioxide (22 - 30 mmol/L) 24 Anion Gap (5 - 16) 7 BUN (9 - 20 mg/dL) 10 Creatinine (0.7 - 1.2 mg/dL) 0.7 Estimated GFR (>60 ml/min) > 60 Glucose (65 - 99 mg/dL) 95 Calcium (8.4 - 10.2 mg/dL) 8.4 Phosphorus (2.5 - 4.5 mg/dL) 2.7 Magnesium (1.6 - 2.3 mg/dL) 1.4 L Total Bilirubin (0.2 - 1.3 mg/dL) 0.4 AST (17 - 59 U/L) 16 L ALT (21 - 72 U/L) 20 L Troponin I (<0.11 ng/ml) < 0.01 Albumin (3.5 - 5.0 g/dL) 2.6 L Hematology CBC w Diff NO MAN DIFF REQ WBC (4.8 - 10.8 /CUMM) 4.3 L RBC (4.70 - 6.10 /CUMM) 4.01 L Hgb (14.0 - 18.0 G/DL) 11.9 L Hct (42 - 52 %) 35.5 L MCV (80.0 - 94.0 FL) 88.7 MCH (27.0 - 31.0 PG) 29.7 MCHC (33.0 - 37.0 G/DL) 33.4 RDW (11.5 - 14.5 %) 13.6 Plt Count (130 - 400 /CUMM) 204 MPV (7.4 - 10.4 FL) 8.3 Gran % (42.2 - 75.2 %) 74.1 Lymphocytes % (20.5 - 51.1 %) 13.6 L Monocytes % (1.7 - 9.3 %) 7.0 Eosinophils % (0 - 5 %) 4.7 Basophils % (0.0 - 2.0 %) 0.6 Absolute Granulocytes (1.4 - 6.5 /CUMM) 3.2 Absolute Lymphocytes (1.2 - 3.4 /CUMM) 0.6 L Absolute Monocytes (0.10 - 0.60 /CUMM) 0.3 Absolute Eosinophils (0.0 - 0.7 /CUMM) 0.2 Absolute Basophils (0.0 - 0.2 /CUMM) 0 09/05 09/04 09/04 0200 2147 1951 Chemistry Sodium (137 - 145 mmol/L) 137 Potassium (3.5 - 5.1 mmol/L) 3.7 Chloride (98 - 107 mmol/L) 104 Carbon Dioxide (22 - 30 mmol/L) 24 Anion Gap (5 - 16) 9 BUN (9 - 20 mg/dL) 20 Creatinine (0.7 - 1.2 mg/dL) 0.7 Estimated GFR (>60 ml/min) > 60 BUN/Creatinine Ratio (7 - 25 %) 28.6 H Troponin I (<0.11 ng/ml) < 0.01 Hematology CBC w Diff NO MAN DIFF REQ WBC (4.8 - 10.8 /CUMM) 5.4 RBC (4.70 - 6.10 /CUMM) 3.89 L Hgb (14.0 - 18.0 G/DL) 11.6 L Hct (42 - 52 %) 34.4 L MCV (80.0 - 94.0 FL) 88.5 MCH (27.0 - 31.0 PG) 29.9 MCHC (33.0 - 37.0 G/DL) 33.7 RDW (11.5 - 14.5 %) 13.1 Plt Count (130 - 400 /CUMM) 215 MPV (7.4 - 10.4 FL) 8.0 Gran % (42.2 - 75.2 %) 76.1 H Lymphocytes % (20.5 - 51.1 %) 13.6 L Monocytes % (1.7 - 9.3 %) 6.3 Eosinophils % (0 - 5 %) 3.4 Basophils % (0.0 - 2.0 %) 0.6 Absolute Granulocytes (1.4 - 6.5 /CUMM) 4.1 Absolute Lymphocytes (1.2 - 3.4 /CUMM) 0.7 L Absolute Monocytes (0.10 - 0.60 /CUMM) 0.3 Absolute Eosinophils (0.0 - 0.7 /CUMM) 0.2 Absolute Basophils (0.0 - 0.2 /CUMM) 0 Serology Lyme Disease Antibody Cancelled 09/04 1511 1041 Chemistry Lactic Acid (0.7 - 2.1 mmol/L) 0.9 Serology Lyme Disease Antibody (RATIO) 0.23 Toxicology Urine Opiates Screen (>2000 NG/ML) < 100 Methadone Screen (>300 NG/ML) < 40 Barbiturate Screen (>200 NG/ML) < 60 Ur Phencyclidine Scrn (>25 NG/ML) < 6.00 Amphetamines Screen (>1000 NG/ML) < 100 U Benzodiazepines Scrn (>200 NG/ML) < 85 Urine Cocaine Screen (>300 NG/ML) < 50 Urine Cannabis Screen (>50 NG/ML) < 5.00 Urines Urine Color (YEL,AMB,STR) YEL Urine Clarity (CLEAR) CLEAR Urine pH (5.0 - 8.0) 5.5 Ur Specific [place] (1.001 - 1.035) <= 1.005 Urine Protein (NEG,<30 MG/DL) NEG Urine Ketones (NEG) NEG Urine Nitrite (NEG) NEG Urine Bilirubin (NEG) NEG Urine Urobilinogen (0.1 - 1.0 EU/dl) 0.2 Ur Leukocyte Esterase (NEG) NEG Ur Microscopic EXAM NOT REQUIRED Urine Hemoglobin (NEG) NEG Urine Glucose (N MG/DL) NEG 09/04 1041 Chemistry Sodium (137 - 145 mmol/L) 138 Potassium (3.5 - 5.1 mmol/L) 4.3 Chloride (98 - 107 mmol/L) 101 Carbon Dioxide (22 - 30 mmol/L) 24 Anion Gap (5 - 16) 13 BUN (9 - 20 mg/dL) 30 H Creatinine (0.7 - 1.2 mg/dL) 1.0 Estimated GFR (>60 ml/min) > 60 BUN/Creatinine Ratio (7 - 25 %) 30.0 H Glucose (65 - 99 mg/dL) 79 Lactic Acid (0.7 - 2.1 mmol/L) 1.0 Calcium (8.4 - 10.2 mg/dL) 9.1 Magnesium (1.6 - 2.3 mg/dL) 1.8 Total Bilirubin (0.2 - 1.3 mg/dL) 0.7 AST (17 - 59 U/L) 27 ALT (21 - 72 U/L) 25 Alkaline Phosphatase (< 127 U/L) 58 Troponin I (<0.11 ng/ml) < 0.01 Total Protein (6.3 - 8.2 g/dL) 6.7 Albumin (3.5 - 5.0 g/dL) 3.8 Globulin (1.9 - 4.2 gm/dL) 2.9 Albumin/Globulin Ratio (1.1 - 2.2 %) 1.3 Lipase (23 - 300 U/L) 38 TSH &T3 &Free T4 Intrp (0.27 - 4.20 uIU/mL) 3.710 Coagulation PT (9.4 - 12.5 SEC) 11.6 INR (0.90 - 1.17) 1.06 APTT (25 - 37 SEC) 26 Hematology CBC w Diff NO MAN DIFF REQ WBC (4.8 - 10.8 /CUMM) 5.7 RBC (4.70 - 6.10 /CUMM) 4.31 L Hgb (14.0 - 18.0 G/DL) 12.6 L Hct (42 - 52 %) 38.7 L MCV (80.0 - 94.0 FL) 89.8 MCH (27.0 - 31.0 PG) 29.3 MCHC (33.0 - 37.0 G/DL) 32.7 L RDW (11.5 - 14.5 %) 13.2 Plt Count (130 - 400 /CUMM) 222 MPV (7.4 - 10.4 FL) 8.1 Gran % (42.2 - 75.2 %) 76.1 H Lymphocytes % (20.5 - 51.1 %) 13.1 L Monocytes % (1.7 - 9.3 %) 7.5 Eosinophils % (0 - 5 %) 3.0 Basophils % (0.0 - 2.0 %) 0.3 Absolute Granulocytes (1.4 - 6.5 /CUMM) 4.3 Absolute Lymphocytes (1.2 - 3.4 /CUMM) 0.7 L Absolute Monocytes (0.10 - 0.60 /CUMM) 0.4 Absolute Eosinophils (0.0 - 0.7 /CUMM) 0.2 Absolute Basophils (0.0 - 0.2 /CUMM) 0 Serology HIV 1&2 Ab Western Blot (NONREACTIVE) NONREACTIVE Microbiology Date/Time Procedure - Status Source Growth 09/04 1849 Surveillance Culture - COMP UPPER RESP 09/04 1849 Surveillance Culture - COMP GI Impression/Plan Impression/Plan Impression/Plan: SIGNIFICANT DATA Potassium 3.3, magnesium was low. White count 4.3 hemoglobin 11.9 CTs chest reviewed which showed atelectasis no other pulmonary pathology other than esophageal dilatation with distal tapering rule out other pathology including chagas disease. This needs evaluation Abdominal CT reviewed showed small bowel hyperemia? Portal vein abnormality which needs follow-up ultrasound unremarkable small volume of ascites IMPRESSION This is a gentleman with severe GERD, developmental delay, came into the hospital with persistent vomiting and heartburn with significant bradycardia. He has had cardiology and the cardiothoracic surgery evaluation. He is going for a pacemaker. His other issues include significant nausea and vomiting with significant esophageal dilation with distal tapering probably achalasia. This would require GI evaluation and follow-up. He would probably need an upper endoscopy later Developmental delay Cachexia with weight loss with oral Levaquin plaque here. Patient is HIV negative. Hypokalemia hypomagnesemia RECOMMENDATION Continue current treatment Pacemaker Please order a GI consult today patient would require an EGD as he has had persistent vomiting and what clinically appears to be distal esophageal obstruction probably with achalasia. Replace potassium intravenously, magnesium 1 g intravenously. Due to severe bradycardia requires ICU monitoring Patient continues to be critically ill due to severe bradycardia total time spent 36 minutes
--- NOTE | 2017-09-06 10:50 | ECHOCARDIOGRAM REPORT ---
CÉSAR WILKINS Age: 67 : 1950 Gender: M Exam Date: 09/05/2017 10:21 Exam Location: [facility] Ht (in): 68 Wt (lb): 100 BSA: 1.45 BP: 120 / 76 Ordering Physician: Lea Sharif MD Referring Physician: Lea Sharif MD Technologist: Easton Johnson STEFANI Room Number: 106 Indications: Arrhythmia Rhythm: Sinus Technical Quality: Technically difficult study FINDINGS Left Ventricle Normal size left ventricle. Normal left ventricular wall thickness. Normal left ventricular ejection fraction visually estimated at > 60%. No obvious regional wall motion abnormalities. Right Ventricle Normal right ventricular size and function. Right Atrium Normal right atrial size. Left Atrium Normal left atrial size. Mitral Valve Mild mitral annular calcification. Trace mitral regurgitation. Aortic Valve Aortic valve mildy thickened.no aortic stenosis. No aortic regurgitation. Tricuspid Valve Tricuspid valve not well visualized, grossly normal. Trace tricuspid regurgitation. Pulmonic Valve Pulmonic valve not well visualized, grossly normal. Pericardium No pericardial effusion. Great Vessels Normal size aortic root. CONCLUSIONS Normal left ventricular ejection fraction visually estimated at > 60%. Trace mitral regurgitation. Trace tricuspid regurgitation. Speedy Santoro M.D. (Electronically Signed) Final Date: 06 Sep 2017 10:49 MEASUREMENTS (Male / Female) Normal Values 2D ECHO LV Diastolic Diameter PLAX 5.0 cm 4.2 - 5.9 / 3.9 - 5.3 cm LV Systolic Diameter PLAX 3.1 cm 2.1 - 4.0 cm LV Fractional Shortening PLAX 38.0 % 25 - 46 % LV Ejection Fraction 2D Teich 67.9 % IVS Diastolic Thickness 0.9 cm LVPW Diastolic Thickness 0.8 cm LV Relative Wall Thickness 0.3 RV Internal Dim ED PLAX 2.8 cm 1.9 - 3.8 cm LVOT Diameter 2.1 cm Aortic Root Diameter 3.4 cm LA Systolic Diameter LX 2.5 cm 3.0 - 4.0 / 2.7 - 3.8 cm Ascending Aorta Diameter 2.8 cm DOPPLER AV Peak Velocity 115.0 cm/s AV Peak Gradient 5.3 mmHg AV Mean Velocity 73.9 cm/s AV Mean Gradient 3.0 mmHg AV Velocity Time Integral 28.3 cm LVOT Peak Velocity 88.7 cm/s LVOT Peak Gradient 3.1 mmHg LVOT Mean Velocity 56.0 cm/s LVOT Mean Gradient 2.0 mmHg LVOT Velocity Time Integral 23.8 cm LVOT Stroke Volume 82.4 cm AV Area Cont Eq vti 2.9 cm AV Area Cont Eq pk 2.7 cm MV Peak Velocity 57.9 cm/s MV Peak Gradient 1.3 mmHg MV Mean Velocity 27.9 cm/s MV Mean Gradient 0.0 mmHg Mitral E Point Velocity 43.9 cm/s Mitral A Point Velocity 30.1 cm/s Mitral E to A Ratio 1.5 MV PHT Velocity 65.0 cm/s MV Deceleration [place] 110.0 cm/s MV Pressure Half Time 177.3 ms MV Area PHT 1.2 cm MV Deceleration Time 190.0 ms PV Peak Velocity 59.3 cm/s PV Peak Gradient 1.4 mmHg PV Mean Velocity 41.9 cm/s PV Mean Gradient 1.0 mmHg PV Velocity Time Integral 12.8 cm LV E' Lateral Velocity 6.9 cm/s Mitral E to LV E' Lateral Ratio 6.3 LV E' Septal Velocity 5.0 cm/s Mitral E to LV E' Septal Ratio 8.8
--- NOTE | 2017-09-06 12:32 | PN- Cardiology ---
Subjective Subjective: The patient remained stable and alert. Sinus bradycardia on the monitor. No other symptoms. Objective Vital Signs and I&Os Vital Signs Date Time Temp Pulse Resp B/P B/P Pulse O2 O2 Flow FiO2 Mean Ox Delivery Rate 09/07 799 98 Room Air 09/07 799 98.8 42 18 108/70 98 Room Air 09/06 0400 97 Room Air 09/06 0000 100 Room Air 09/06 0000 99.2 49 16 104/82 100 Room Air 09/05 1600 98.3 43 22 126/82 96 Room Air Intake & Output 09/06 1600 09/06 08 05 0000 09/05 1600 09/05 08 05 0000 Intake Total 1630 800 778 680 415 Output Total 900 325 300 0 Balance 730 800 453 380 415 Intake, IV 1630 800 778 680 415 Intake, Oral 0 0 0 Number 0 0 Bowel Movements Output, Urine 900 325 300 0 Patient 98 lb 8.75 oz 98 lb 9 oz 100 lb 101 lb 100 lb Weight Weight Bed scale Bed scale Bed scale Bed scale Measurement Method Physical Exam: General Appearance: well developed/nourished, alert, awake, oriented Head: normal HEENT: Normal Neck: supple, JVP normal, carotid upstrokes normal bilaterally, no masses or thyromegaly Respiratory: chest non-tender, clear to auscultation and percussion bilaterally Cardiovascular: regular rate/rhythm, normal S1, S2, 1/6 systolic murmur Abdomen: normal bowel sounds, soft, non-tender Extremities: normal inspection, no edema Vascular: Pulses are 2+ and equal bilaterally Neurologic: Grossly normal/nonfocal Current Medications: Current Medications Sig/[place] Start time Last Medication Dose Route Stop Time Status Admin Acetaminophen 650 MG Q6P PRN 09/04 1600 AC PO Atropine Sulfate 0.5 MG ONCE PRN 09/04 1800 AC IV Dextrose/Sodium 1,000 ML Q13H 09/04 1800 AC 09/06 Chloride IV 1000 Enoxaparin Sodium 40 MG DAILY 09/05 899 AC 09/05 SC 1017 Famotidine 20 MG ONCE ONE 09/05 1615 DC 09/05 IV 09/05 1616 1819 Famotidine 20 MG ONCE ONE 09/05 1530 CAN PO 09/05 1531 Magnesium Sulfate 1 GM Q2H 09/06 0745 DC 09/06 Dextrose/Water 100 ML IV 09/06 1144 0945 Pantoprazole Sodium 40 MG BID 09/04 2100 AC 09/06 IV 1019 Potassium Chloride 10 MEQ Q1H 09/06 729 DC 09/06 IV 09/06 0831 0969 Results Last 48 Hrs of Labs/Mics: Laboratory Tests 09/06/17 0420: Anion Gap 7, Estimated GFR > 60, Glucose 95, Calcium 8.4, Phosphorus 2.7, Magnesium 1.4 L, Total Bilirubin 0.4, AST 16 L, ALT 20 L, Albumin 2.6 L, CBC w Diff NO MAN DIFF REQ, RBC 4.01 L, MCV 88.7, MCH 29.7, MCHC 33.4, RDW 13.6, MPV 8.3, Gran % 74.1, Lymphocytes % 13.6 L, Monocytes % 7.0, Eosinophils % 4.7, Basophils % 0.6, Absolute Granulocytes 3.2, Absolute Lymphocytes 0.6 L, Absolute Monocytes 0.3, Absolute Eosinophils 0.2, Absolute Basophils 0 09/05/17 0200: Troponin I < 0.01 09/05/17 0200: Anion Gap 9, Estimated GFR > 60, BUN/Creatinine Ratio 28.6 H, CBC w Diff NO MAN DIFF REQ, RBC 3.89 L, MCV 88.5, MCH 29.9, MCHC 33.7, RDW 13.1, MPV 8.0, Gran % 76.1 H, Lymphocytes % 13.6 L, Monocytes % 6.3, Eosinophils % 3.4, Basophils % 0.6, Absolute Granulocytes 4.1, Absolute Lymphocytes 0.7 L, Absolute Monocytes 0.3, Absolute Eosinophils 0.2, Absolute Basophils 0 09/04/172146: Lyme Disease Antibody Cancelled 09/04/171951: Troponin I < 0.01 09/04/171951: Lactic Acid 0.9 09/04/17 1511: Urine Opiates Screen < 100, Methadone Screen < 40, Barbiturate Screen < 60, Ur Phencyclidine Scrn < 6.00, Amphetamines Screen < 100, U Benzodiazepines Scrn < 85, Urine Cocaine Screen < 50, Urine Cannabis Screen < 5.00, Urine Color YEL, Urine Clarity CLEAR, Urine pH 5.5, Ur Specific [place] <= 1.005, Urine Protein NEG, Urine Ketones NEG, Urine Nitrite NEG, Urine Bilirubin NEG, Urine Urobilinogen 0.2, Ur Leukocyte Esterase NEG, Ur Microscopic EXAM NOT REQUIRED, Urine Hemoglobin NEG, Urine Glucose NEG Microbiology 09/04 1849 UPPER RESP: Surveillance Culture - COMP 09/04 1849 GI: Surveillance Culture - COMP Assessment/Plan Assessment/Plan Assessment: 1. Nausea and vomiting, possible gastroenteritis 2. Sinus bradycardia with hypotension and bifascicular block 3. Possible lung mass Plan: * Monitor in ICU. * Transcutaneous pacing if needed for symptomatic bradycardia * Permanent pacemaker today with Dr. Sidhu * Echocardiogram pending Continue telemetry? Yes
--- NOTE | 2017-09-06 13:56 | RADIOLOGY REPORT ---
EXAMINATION: XR PORTABLE CHEST CLINICAL INFORMATION: Status post pacemaker placement. COMPARISON: Prior chest radiograph dated 09/04/2017. TECHNIQUE: Portable frontal view of the chest was obtained. FINDINGS: There is stable cardiomegaly. A left subclavian dual-lead, dual-chamber pacemaker device is seen, without lead fracture noted. No congestive heart failure is seen. The lungs show no infiltrate, effusion or pneumothorax. There is no acute osseous abnormality. IMPRESSION: No pneumothorax is seen status-post left subclavian pacemaker placement. The lungs appear clear.
[2017-09-06 15:00] VITALS: BP 120/70
[2017-09-06 16:00] VITALS: BP 110/60
--- NOTE | 2017-09-06 16:15 | Operative Report ---
Operative/Inv Procedure Report Surgery Date: 09/06/17 Name of Procedure: MRI compatible dual-chamber pacemaker Pre-Operative Diagnosis: Symptomatic bradycardia Post-Operative Diagnosis: Same Estimated Blood Loss: less than 50ml Surgeon/Oil Boiler: Chris Sidhu MD Anesthesia: general endotracheal tube Operative/Procedure Note Note: After placement of monitoring lines and induction of general anesthesia the patient's left chest and shoulder were prepped and draped in a sterile fashion. Incision was made in the deltopectoral groove and carried down to the prepectoralis muscle. There was an extremely small cephalic vein. It was encircled but was not suitable for any instrumentation so was occluded with surgical clips. The patient was then placed in Trendelenburg position and with a single pass the needle was entered into the subclavian vein and a wire was passed into the right atrium under fluoroscopic guidance. Sheath dilator was passed over the wire with the wire retained and a Medtronic pacemaker lead model #[id number] was then advanced into the pulmonary outflow tract under fluoroscopic guidance. It was withdrawn into the right ventricular chamber in position of the apex. R waves were measured at 6.8 mV. The pacing threshold was 0.4 V with a current of 0.6 mA and impedance of 1033 ohms. Sheath dilator was then passed over the retained wire and a preformed atrial lead model #[id number] was then positioned in the right atrial appendage. P waves were measured 3.2 mV. The pacing threshold was 0.5 V with a current of 0.6 mA and impedance of 712 ohms. The leads were secured to the prepectoralis fascia with Ethibond sutures. They were then connected to a Medtronic MRI compatible dual-chamber pacemaker. Pacemaker pocket was fashioned above the prepectoralis fascia. Hemostasis was achieved with electrocautery and with surgical clips. The pocket was irrigated with antibiotic irrigation. The wound was then closed in layers with deep Vicryl suture followed by running Vicryl subcuticular suture. The patient tolerated the procedure well was brought to recovery room awake and extubated in stable condition.
--- NOTE | 2017-09-06 16:19 | RADIOLOGY REPORT ---
EXAMINATION: CR CHEST/INTRAOPERATIVE FLUOROSCOPY CLINICAL INDICATION: Delete pacemaker insertion in OR. COMPARISON: None TECHNIQUE/FINDINGS: Fluoroscopic equipment was dedicated to the operating room for the performance of an intraoperative procedure. Single spot film was acquired and is archived in PACS. Please refer to operative notes for procedural detail. FLUOROSCOPY TIME: 14 minutes and 11 seconds. IMPRESSION: Administrative dictation for intraoperative fluoroscopy and image archiving in PACS. Please refer to operative notes for details.
[2017-09-07] VITALS: BP 100/60
[2017-09-07 04:34] LABS: ABSOLUTE BASOPHIL COUNT 0 /CUMM (0.0-0.2); ABSOLUTE EOSINOPHIL COUNT 0.1 /CUMM (0.0-0.7); ABSOLUTE LYMPH COUNT 0.4 /CUMM (1.2-3.4); ABSOLUTE MONOCYTE COUNT 0.3 /CUMM (0.10-0.60); BASOPHIL % 0.2 % (0.0-2.0); EOSINOPHIL % 2.2 % (0-5); GRANULOCYTE % 85.2 % (42.2-75.2); HEMATOCRIT 36.4 % (42-52); MEAN CORPUSCULAR HGB 29.4 PG (27.0-31.0); MEAN CORPUSCULAR HGB CONC 32.9 G/DL (33.0-37.0); MEAN CORPUSCULAR VOLUME 89.5 FL (80.0-94.0); PLATELET COUNT 205 /CUMM (130-400); RBC DISTRIBUTION WIDTH 13.2 % (11.5-14.5); RED BLOOD CELL CT 4.07 /CUMM (4.70-6.10); WHITE BLOOD CELL COUNT 5.9 /CUMM (4.8-10.8)
[2017-09-07 08:00] VITALS: BP 120/70
--- NOTE | 2017-09-07 08:49 | PN- Housestaff ---
[facility]: Subjective Follow-up For: -Bradycardia/ s/p pacemaker -sever malnutrition -Dysphagia, weight loos, esophageal dilatation on CT scan Complaints: no complaints Subjective: Patient seen and examined, lying on the bed comfortable with no acute distress. He slept well with no issue, he only has some tenderness over the site of pacemaker. He has vomiting episode after eating thick food. Vitals stable No events overnight Review of Systems Constitutional: Reports: no symptoms. EENTM: Reports: no symptoms. Cardiovascular: Reports: no symptoms. Respiratory: Reports: no symptoms. Gastrointestinal: Reports: see HPI, vomiting. Genitourinary: Reports: no symptoms. Musculoskeletal: Reports: no symptoms. Neurological/Psychological: Reports: no symptoms. Objective Last 24 Hrs of Vital Signs/I&O Vital Signs Date Time Temp Pulse Resp B/P B/P Pulse O2 O2 Flow FiO2 Mean Ox Delivery Rate 09/07 0800 99.0 60 22 120/70 96 Room Air 09/07 0000 95 Room Air 09/07 0000 98.6 67 16 100/60 95 Room Air 09/06 1600 99.5 56 18 110/60 100 Room Air / 1500 97.2 63 20 120/70 99 Room Air Intake & Output 09/07 1600 09/07 0800 09/07 0000 Intake Total 800 640 Output Total 500 750 Balance 300 -110 Intake, IV 700 300 Intake, Oral 100 340 Output, 50 Emesis Output, Urine 500 700 Patient 102 lb Weight Weight Bed scale Measurement Method Physical Exam General Appearance: Alert, Oriented X3, Cooperative, No Acute Distress Skin: No Rashes, No Breakdown, No Significant Lesion Cardiovascular: Regular Rate, Normal S1, Normal S2 Lungs: Clear to Auscultation, Normal Air Movement Abdomen: Normal Bowel Sounds, Soft, No Tenderness Neurological: Normal Speech, Sensation Intact Vascular: Normal Pulses, Pulses Symmetrical Current Medications: Current Medications Sig/Triston Start time Last Medication Dose Route Stop Time Status Admin Acetaminophen 1,000 MG Q6P PRN 09/06 1645 AC 09/07 N/A 1 UNIT IV 0758 Acetaminophen 650 MG Q6P PRN 09/04 1600 AC PO Atropine Sulfate 0.5 MG ONCE PRN 09/04 1800 AC IV Cefazolin Sodium 1,000 MG IQ8 09/06 2000 DC 09/07 IV 09/07 0801 0758 Dextrose/Sodium 1,000 ML Q13H 09/04 1800 AC 09/07 Chloride IV 0218 Enoxaparin Sodium 40 MG DAILY 09/07 899 AC SC Enoxaparin Sodium 40 MG DAILY 09/05 09 DC 09/05 SC 1017 Magnesium Sulfate 1 GM ONCE ONE 09/07 0745 DC 09/07 Dextrose/Water 100 ML IV 09/07 1144 0941 Ondansetron HCl 4 MG ONCE ONE 09/06 1914 DC 09/06 IV 09/06 191 1909 Pantoprazole Sodium 40 MG BID 09/04 2100 AC 09/07 IV 0758 Potassium Chloride 10 MEQ Q1H 09/07 744 DC 09/07 IV 09/07 0846 1056 Tramadol HCl 50 MG Q6-PRN PRN 09/06 1345 AC PO Last 24 Hrs of Lab/Rasheed Results Last 24 Hrs of Labs/Mics: Laboratory Tests 09/07/17 0330: Anion Gap 7, Estimated GFR > 60, Glucose 111 H, Calcium 8.0 L, Phosphorus 3.0, Magnesium 1.7, Total Bilirubin 0.3, AST 16 L, ALT 15 L, Albumin 2.5 L, CBC w Diff NO MAN DIFF REQ, RBC 4.07 L, MCV 89.5, MCH 29.4, MCHC 32.9 L, RDW 13.2, MPV 8.0, Gran % 85.2 H, Lymphocytes % 6.7 L, Monocytes % 5.7, Eosinophils % 2.2, Basophils % 0.2, Absolute Granulocytes 5.0, Absolute Lymphocytes 0.4 L, Absolute Monocytes 0.3, Absolute Eosinophils 0.1, Absolute Basophils 0 Assessment/Plan Assessment: This is a 67-year-old gentleman with a past medical history significant for GERD and developmental delay, who comes in for chief complaint of persistent vomiting and heartburn. During ED workup patient was found to be significantly hypotensive with blood pressure 72/40 requiring 3 L normal saline resuscitation. Additionally, he was noted to have bradycardia into the 30s along with the hypotension. Patient denies any dizziness, change in vision, palpitation or chest pain. He denies any previous history of bradycardia, or recent change in medications. Given His persistent bradycardia patient was transferred to ICU. Patient seen by facility attendant who recommended to place permanent pacemaker, patient is nothing by mouth for pacemaker placement today. Assessment: #Bradycardia s/p pacemaker yesterday #Weight loss in the setting of dysphagia, lower esophageal dilatation on imaging #sever malnutrition Plan: * Currently on RA with O2 sat of 97% * X-ray finding of a 2 cm mass in left midlung: Patient states that he has never smoked but given his weight loss, cachectic appearance, dysphagia - there is concern for malignancy. Given that x-ray finding of 2 cm mass mid lung left side, CT chest was done which showed no masses or nodules. There is mid linear scar, subsegmental atelectasis at the posterior left base. No mediastinal or hilar adenopathy. No thoracic aortic aneurysm. * On physical exam he did have some leukoplakia versus oral thrush finding on the hard palate of his dentures. HIV neg, No fever or leukocytosis * He was transferred to ICU on 09/04/2017. He was found to have Sinus bradycardia with hypotension possible differential bifascicular block-right bundle branch block and left anterior fascicular block. He was evaluated by facility attendant Dr. Santoro. Recommended to get permanent pacemaker. Atropine placed at bedside, transcutaneous pacing if needed for symptomatic Bradd was planned. Lyme panel was negative. Now he is s/p pacemaker placed at 09/06/2017 * GI was consulted yesterday based on his CAT scan findings which showed esophageal dilatation with distal tapering, raising the question of achalasia, distal esophageal stricture or mass, scleroderma or, less likely, Chagas disease. Continued Protonix 40 twice a da, waiting for GI input today. GI office called again today for consult. Patient currently on clear liquid diet. DVT/Prophylaxis: mechanical, pharmacological Code Status: Full Code Other: Patient brother Mr. Arnav Ricketts is the appointed conservator for the patient, he can be reached at [phone]. Conservator also mentioned that information can be released to patient's daughter in law Jessica. Patient's also can be reached at [phone]. Problem List: 1. GERD (gastroesophageal reflux disease) 2. Symptomatic bradycardia 3. Dysphagia 4. Severe malnutrition Pain Ratin Pain Location: - Pain Goal: Remain pain free (-) Pain Plan: - Tomorrow's Labs & Rationales: cbc, bep DVT/Prophylaxis: mechanical, pharmacological Leonel Claudio MD 09/07/17 1422: Attending MD Review Statement Attending Statement Attending MD Statement: examined this patient, discuss w/resident/PA/[employer], agreed w/resident/PA/[employer], reviewed EMR data (avail), amended to note Attending Assessment/Plan: The patient was seen and discussed with house staff. Appreciate Pulmonary and Cardiology input. Tolerated pacer well. Still continues to experience regurgitation, even with liquids. Significant weight loss noted. Patient is malnourished. Awaiting GI input- patient will need EGD.
--- NOTE | 2017-09-07 10:28 | PN- Pulmonary ---
Subjective HPI/Critical Care Issues: Did have a pacemaker yesterday No other complaints is doing ok Unreliable historian Previous vomiting episode Chest x-ray after the procedure did not reveal any pneumothorax Vital signs a stable he's on room air His blood work reviewed in the computer as noted potassium is low his hemoglobin is stable white count is 5.9 previous echo reviewed which was done upon admission which showed normal ejection fraction Objective Current Medications: Current Medications Sig/Triston Start time Last Medication Dose Route Stop Time Status Admin Acetaminophen 1,000 MG Q6P PRN 09/06 1645 AC 09/07 N/A 1 UNIT IV 0758 Acetaminophen 650 MG Q6P PRN 09/04 1600 AC PO Atropine Sulfate 0.5 MG ONCE PRN 09/04 1800 AC IV Cefazolin Sodium 1,000 MG IQ8 09/06 2000 DC 09/07 IV 09/07 0801 0758 Dextrose/Sodium 1,000 ML Q13H 09/04 1800 AC 09/07 Chloride IV 0218 Enoxaparin Sodium 40 MG DAILY 09/07 09 AC SC Enoxaparin Sodium 40 MG DAILY 09/05 09 DC 09/05 SC 1017 Fentanyl Citrate 100 MCG .STK-MED ONE 09/06 1028 DC IM 09/06 1029 Magnesium Sulfate 1 GM ONCE ONE 09/07 0745 AC 09/07 Dextrose/Water 100 ML IV 09/07 114 0941 Magnesium Sulfate 1 GM Q2H 09/06 0745 DC 09/06 Dextrose/Water 100 ML IV 09/06 114 0945 Midazolam HCl 2 MG .STK-MED ONE 09/06 1028 DC IM 09/06 1029 Ondansetron HCl 4 MG ONCE ONE 09/06 1914 DC 09/06 IV 09/06 191 1909 Pantoprazole Sodium 40 MG BID 09/04 2100 AC 09/07 IV 0758 Potassium Chloride 10 MEQ Q1H 09/07 0745 DC IV 09/07 0846 Tramadol HCl 50 MG Q6-PRN PRN 09/06 1345 AC PO Vital Signs & I&O Last 24 Hrs of Vitals and I&O: Vital Signs Date Time Temp Pulse Resp B/P B/P Pulse O2 O2 Flow FiO2 Mean Ox Delivery Rate 09/07 0800 99.0 60 22 120/70 96 Room Air 09/07 0000 95 Room Air 09/07 0000 98.6 67 16 100/60 95 Room Air 09/06 1600 99.5 56 18 110/60 100 Room Air 09/06 1500 97.2 63 20 120/70 99 Room Air Intake & Output 09/07 1600 09/07 0800 05 0000 Intake Total 800 640 Output Total 500 750 Balance 300 -110 Intake, IV 700 300 Intake, Oral 100 340 Output, 50 Emesis Output, Urine 500 700 Patient 102 lb Weight Weight Bed scale Measurement Method Laboratory Tests 09/07 09/06 0330 0420 Chemistry Sodium (137 - 145 mmol/L) 134 L 135 L Potassium (3.5 - 5.1 mmol/L) 3.6 3.3 L Chloride (98 - 107 mmol/L) 102 104 Carbon Dioxide (22 - 30 mmol/L) 25 24 Anion Gap (5 - 16) 7 7 BUN (9 - 20 mg/dL) 5 L 10 Creatinine (0.7 - 1.2 mg/dL) 0.7 0.7 Estimated GFR (>60 ml/min) > 60 > 60 Glucose (65 - 99 mg/dL) 111 H 95 Calcium (8.4 - 10.2 mg/dL) 8.0 L 8.4 Phosphorus (2.5 - 4.5 mg/dL) 3.0 2.7 Magnesium (1.6 - 2.3 mg/dL) 1.7 1.4 L Total Bilirubin (0.2 - 1.3 mg/dL) 0.3 0.4 AST (17 - 59 U/L) 16 L 16 L ALT (21 - 72 U/L) 15 L 20 L Albumin (3.5 - 5.0 g/dL) 2.5 L 2.6 L Hematology CBC w Diff NO MAN DIFF REQ NO MAN DIFF REQ WBC (4.8 - 10.8 /CUMM) 5.9 4.3 L RBC (4.70 - 6.10 /CUMM) 4.07 L 4.01 L Hgb (14.0 - 18.0 G/DL) 12.0 L 11.9 L Hct (42 - 52 %) 36.4 L 35.5 L MCV (80.0 - 94.0 FL) 89.5 88.7 MCH (27.0 - 31.0 PG) 29.4 29.7 MCHC (33.0 - 37.0 G/DL) 32.9 L 33.4 RDW (11.5 - 14.5 %) 13.2 13.6 Plt Count (130 - 400 /CUMM) 205 204 MPV (7.4 - 10.4 FL) 8.0 8.3 Gran % (42.2 - 75.2 %) 85.2 H 74.1 Lymphocytes % (20.5 - 51.1 %) 6.7 L 13.6 L Monocytes % (1.7 - 9.3 %) 5.7 7.0 Eosinophils % (0 - 5 %) 2.2 4.7 Basophils % (0.0 - 2.0 %) 0.2 0.6 Absolute Granulocytes (1.4 - 6.5 /CUMM) 5.0 3.2 Absolute Lymphocytes (1.2 - 3.4 /CUMM) 0.4 L 0.6 L Absolute Monocytes (0.10 - 0.60 /CUMM) 0.3 0.3 Absolute Eosinophils (0.0 - 0.7 /CUMM) 0.1 0.2 Absolute Basophils (0.0 - 0.2 /CUMM) 0 0 Microbiology Date/Time Procedure - Status Source Growth 09/04 1849 Surveillance Culture - COMP UPPER RESP 09/04 1849 Surveillance Culture - COMP GI Impression/Plan Impression/Plan Impression/Plan: CTs chest reviewed which showed atelectasis no other pulmonary pathology other than esophageal dilatation with distal tapering rule out other pathology including chagas disease. This needs evaluation Abdominal CT reviewed showed small bowel hyperemia? Portal vein abnormality which needs follow-up ultrasound unremarkable small volume of ascites General Appearance: no apparent distress, alert, awake, comfortable Head: atraumatic, normal appearance Neck: normal inspection, supple Respiratory: no respiratory distress Cardiovascular: No edema Gastrointestinal: normal bowel sounds, soft, non-tender Extremities: no edema IMPRESSION This is a gentleman with severe GERD, developmental delay, came into the hospital with persistent vomiting and heartburn with significant bradycardia. Status post pacemaker His other issues include significant nausea and vomiting with significant esophageal dilation with distal tapering probably achalasia. This would require GI evaluation and follow-up. He would probably need an upper endoscopy during this admission as he continues to vomit Developmental delay Cachexia with weight loss with oral Levaquin plaque here. Patient is HIV negative. Hypokalemia hypomagnesemia, improved RECOMMENDATION Continue current treatment Pacemaker care per cardiology cardiothoracic Please order a GI consult today patient would require an EGD as he has had persistent vomiting and what clinically appears to be distal esophageal obstruction probably with achalasia. Replace electrolytes Transferred to telemetry Clear liquid diet is okay and keep the head of bed elevated
--- NOTE | 2017-09-07 15:35 | PN- Cardiology ---
Subjective Subjective: Stable, day #[address] pacemaker insertion by Dr. Sidhu. The patient remains in atrial paced rhythm at a rate of 60. No new issues. Objective Vital Signs and I&Os Vital Signs Date Time Temp Pulse Resp B/P B/P Pulse O2 O2 Flow FiO2 Mean Ox Delivery Rate 09/08 799 99.0 60 22 120/70 96 Room Air 09/07 0000 95 Room Air 05 0000 98.6 67 16 100/60 95 Room Air 09/06 1600 99.5 56 18 110/60 100 Room Air Intake & Output 09/07 1600 09/07 0800 09/07 0000 09/06 1600 09/06 0000 Intake Total 1380 434 918 7149 800 Output Total 380 500 750 900 Balance 1000 300 -110 730 800 Intake, IV 800 246 865 3174 800 Intake, Oral 580 100 340 Number 0 Bowel Movements Output, 30 50 Emesis Output, Urine 350 500 700 900 Patient 102 lb 98 lb 8.75 oz 98 lb 9 oz Weight Weight Bed scale Bed scale Measurement Method Current Medications: Current Medications Sig/Triston Start time Last Medication Dose Route Stop Time Status Admin Acetaminophen 1,000 MG Q6P PRN 09/06 1645 AC 09/07 N/A 1 UNIT IV 0758 Acetaminophen 650 MG Q6P PRN 09/04 1600 AC PO Atropine Sulfate 0.5 MG ONCE PRN 09/04 1800 AC IV Cefazolin Sodium 1,000 MG IQ8 09/06 2000 DC 09/07 IV 09/07 0801 0758 Dextrose/Sodium 1,000 ML Q13H 09/04 1800 AC 09/07 Chloride IV 1444 Enoxaparin Sodium 40 MG DAILY 09/07 899 AC 09/07 SC 1225 Magnesium Sulfate 1 GM ONCE ONE 09/07 0645 DC 09/07 Dextrose/Water 100 ML IV 09/07 1144 0941 Ondansetron HCl 4 MG ONCE ONE 09/06 191 DC 09/06 IV 09/06 191 1909 Pantoprazole Sodium 40 MG BID 09/04 2100 AC 09/07 IV 0758 Potassium Chloride 10 MEQ Q1H 09/07 0645 DC 09/07 IV 09/07 0846 1223 Tramadol HCl 50 MG Q6-PRN PRN 09/06 1345 AC PO Results Last 48 Hrs of Labs/Mics: Laboratory Tests 09/07/17 0330: Anion Gap 7, Estimated GFR > 60, Glucose 111 H, Calcium 8.0 L, Phosphorus 3.0, Magnesium 1.7, Total Bilirubin 0.3, AST 16 L, ALT 15 L, Albumin 2.5 L, CBC w Diff NO MAN DIFF REQ, RBC 4.07 L, MCV 89.5, MCH 29.4, MCHC 32.9 L, RDW 13.2, MPV 8.0, Gran % 85.2 H, Lymphocytes % 6.7 L, Monocytes % 5.7, Eosinophils % 2.2, Basophils % 0.2, Absolute Granulocytes 5.0, Absolute Lymphocytes 0.4 L, Absolute Monocytes 0.3, Absolute Eosinophils 0.1, Absolute Basophils 0 09/06/17 0420: Anion Gap 7, Estimated GFR > 60, Glucose 95, Calcium 8.4, Phosphorus 2.7, Magnesium 1.4 L, Total Bilirubin 0.4, AST 16 L, ALT 20 L, Albumin 2.6 L, CBC w Diff NO MAN DIFF REQ, RBC 4.01 L, MCV 88.7, MCH 29.7, MCHC 33.4, RDW 13.6, MPV 8.3, Gran % 74.1, Lymphocytes % 13.6 L, Monocytes % 7.0, Eosinophils % 4.7, Basophils % 0.6, Absolute Granulocytes 3.2, Absolute Lymphocytes 0.6 L, Absolute Monocytes 0.3, Absolute Eosinophils 0.2, Absolute Basophils 0 Assessment/Plan Assessment/Plan Assessment: 1. Nausea and vomiting, possible gastroenteritis 2. Sinus bradycardia with hypotension and bifascicular block 3. Possible lung mass Plan: * Okay for transfer to [address] [place] [address] * Stable post pacemaker insertion by Dr. Sidhu. Pacemaker function appears normal. Interrogation pending * Otherwise continue as per the medical/ICU team * Echocardiogram reviewed, LV function normal, no significant valvular disease Continue telemetry? Yes
--- NOTE | 2017-09-07 18:38 | Cons- Gastroenterology ---
General Information and HPI Consulting Request Date of Consult: 09/07/17 Requested By: Yaakov Gallardo MD Reason for Consult: Nausea, vomiting, dysphagia, weight loss Allergies/Medications Allergies: Coded Allergies: No Known Allergies (09/04/17) Home Med List: Omeprazole 40 MG CAPSULE.DR 1 CAP PO DAILY GI (Reported) Current Medications: Current Medications Sig/Triston Start time Last Medication Dose Route Stop Time Status Admin Acetaminophen 1,000 MG Q6P PRN 09/06 1645 AC 09/07 N/A 1 UNIT IV 0758 Acetaminophen 650 MG Q6P PRN 09/04 1600 AC PO Atropine Sulfate 0.5 MG ONCE PRN 09/04 1800 AC IV Cefazolin Sodium 1,000 MG IQ8 09/06 2000 DC 09/07 IV 09/07 0801 0758 Dextrose/Sodium 1,000 ML Q13H 09/04 1800 AC 09/07 Chloride IV 1444 Enoxaparin Sodium 40 MG DAILY 09/07 0900 AC 09/07 SC 1225 Magnesium Sulfate 1 GM ONCE ONE 09/07 0745 DC 09/07 Dextrose/Water 100 ML IV 09/07 1144 0941 Ondansetron HCl 4 MG ONCE ONE 09/06 1915 DC 09/06 IV 09/06 1916 1909 Pantoprazole Sodium 40 MG BID 09/04 2100 AC 09/07 IV 0758 Potassium Chloride 10 MEQ Q1H 09/07 0745 DC 09/07 IV 09/07 0846 1223 Tramadol HCl 50 MG Q6-PRN PRN 09/06 1345 AC PO Past History Travel History Traveled to [place] past 21 day No Medical History Neurological: Beginning dementia by report of home health aide. EENT: NONE Cardiovascular: unspecified heart rate issue Respiratory: NONE Gastrointestinal: GERD Hepatic: NONE Renal: NONE Musculoskeletal: NONE Psychiatric: NONE Endocrine: NONE Blood Disorders: NONE Cancer(s): NONE METAL SPINNER/Reproductive: NONE Surgical History Surgical History: 1 Psychosocial History Where Do You Live? Home Services at Home: Home Health Aide Primary Language: Kazakh Smoking Status: Former Smoker ETOH Use: denies use Illicit Drug Use: denies illicit drug use Living Will? no Functional Ability Ambulation: independent Exam & Diagnostic Data Vital Signs and I&O Vital Signs Date Time Temp Pulse Resp B/P B/P Pulse O2 O2 Flow FiO2 Mean Ox Delivery Rate 09/07 08 99.0 60 22 120/70 96 Room Air 09/07 0000 95 Room Air 09/07 0000 98.6 67 16 100/60 95 Room Air Intake & Output 09/07 0400 09/06 040 Intake Total 2180 640 2643 814 9605 415 Output Total 880 750 900 625 0 Balance 1300 -110 730 800 833 415 Intake, IV 7245 893 8834 800 1458 415 Intake, Oral 680 340 0 0 Number 0 0 Bowel Movements Output, 30 50 Emesis Output, Urine 850 700 900 625 0 Patient 102 lb 98 lb 8.75 oz 100 lb 100 lb Weight Weight Bed scale Bed scale Bed scale Bed scale Measurement Method Results Pertinent Lab Results: Laboratory Tests 09/07 09/06 0330 0420 Chemistry Sodium (137 - 145 mmol/L) 134 L 135 L Potassium (3.5 - 5.1 mmol/L) 3.6 3.3 L Chloride (98 - 107 mmol/L) 102 104 Carbon Dioxide (22 - 30 mmol/L) 25 24 Anion Gap (5 - 16) 7 7 BUN (9 - 20 mg/dL) 5 L 10 Creatinine (0.7 - 1.2 mg/dL) 0.7 0.7 Estimated GFR (>60 ml/min) > 60 > 60 Glucose (65 - 99 mg/dL) 111 H 95 Calcium (8.4 - 10.2 mg/dL) 8.0 L 8.4 Phosphorus (2.5 - 4.5 mg/dL) 3.0 2.7 Magnesium (1.6 - 2.3 mg/dL) 1.7 1.4 L Total Bilirubin (0.2 - 1.3 mg/dL) 0.3 0.4 AST (17 - 59 U/L) 16 L 16 L ALT (21 - 72 U/L) 15 L 20 L Albumin (3.5 - 5.0 g/dL) 2.5 L 2.6 L Hematology CBC w Diff NO MAN DIFF REQ NO MAN DIFF REQ WBC (4.8 - 10.8 /CUMM) 5.9 4.3 L RBC (4.70 - 6.10 /CUMM) 4.07 L 4.01 L Hgb (14.0 - 18.0 G/DL) 12.0 L 11.9 L Hct (42 - 52 %) 36.4 L 35.5 L MCV (80.0 - 94.0 FL) 89.5 88.7 MCH (27.0 - 31.0 PG) 29.4 29.7 MCHC (33.0 - 37.0 G/DL) 32.9 L 33.4 RDW (11.5 - 14.5 %) 13.2 13.6 Plt Count (130 - 400 /CUMM) 205 204 MPV (7.4 - 10.4 FL) 8.0 8.3 Gran % (42.2 - 75.2 %) 85.2 H 74.1 Lymphocytes % (20.5 - 51.1 %) 6.7 L 13.6 L Monocytes % (1.7 - 9.3 %) 5.7 7.0 Eosinophils % (0 - 5 %) 2.2 4.7 Basophils % (0.0 - 2.0 %) 0.2 0.6 Absolute Granulocytes (1.4 - 6.5 /CUMM) 5.0 3.2 Absolute Lymphocytes (1.2 - 3.4 /CUMM) 0.4 L 0.6 L Absolute Monocytes (0.10 - 0.60 /CUMM) 0.3 0.3 Absolute Eosinophils (0.0 - 0.7 /CUMM) 0.1 0.2 Absolute Basophils (0.0 - 0.2 /CUMM) 0 0 09/05 09/05 09/04 0200 0200 2147 Chemistry Sodium (137 - 145 mmol/L) 137 Potassium (3.5 - 5.1 mmol/L) 3.7 Chloride (98 - 107 mmol/L) 104 Carbon Dioxide (22 - 30 mmol/L) 24 Anion Gap (5 - 16) 9 BUN (9 - 20 mg/dL) 20 Creatinine (0.7 - 1.2 mg/dL) 0.7 Estimated GFR (>60 ml/min) > 60 BUN/Creatinine Ratio (7 - 25 %) 28.6 H Troponin I (<0.11 ng/ml) < 0.01 Hematology CBC w Diff NO MAN DIFF REQ WBC (4.8 - 10.8 /CUMM) 5.4 RBC (4.70 - 6.10 /CUMM) 3.89 L Hgb (14.0 - 18.0 G/DL) 11.6 L Hct (42 - 52 %) 34.4 L MCV (80.0 - 94.0 FL) 88.5 MCH (27.0 - 31.0 PG) 29.9 MCHC (33.0 - 37.0 G/DL) 33.7 RDW (11.5 - 14.5 %) 13.1 Plt Count (130 - 400 /CUMM) 215 MPV (7.4 - 10.4 FL) 8.0 Gran % (42.2 - 75.2 %) 76.1 H Lymphocytes % (20.5 - 51.1 %) 13.6 L Monocytes % (1.7 - 9.3 %) 6.3 Eosinophils % (0 - 5 %) 3.4 Basophils % (0.0 - 2.0 %) 0.6 Absolute Granulocytes (1.4 - 6.5 /CUMM) 4.1 Absolute Lymphocytes (1.2 - 3.4 /CUMM) 0.7 L Absolute Monocytes (0.10 - 0.60 /CUMM) 0.3 Absolute Eosinophils (0.0 - 0.7 /CUMM) 0.2 Absolute Basophils (0.0 - 0.2 /CUMM) 0 Serology Lyme Disease Antibody Cancelled 09/04 Chemistry Lactic Acid (0.7 - 2.1 mmol/L) 0.9 Troponin I (<0.11 ng/ml) < 0.01 Imaging/Other Studies: CT scan of the abdomen and pelvis (09/04): IMPRESSION: There is a paucity of intra-abdominal fat which limits assessment. Mild small bowel mucosal hyperemia may be present, possibly reflecting an enteritis. A small amount of fluid within the pelvis is suspected. Heterogeneous attenuation within the right portal vein, likely due to streak artifact. Correlation with ultrasound is suggested to ensure normal portal venous flow. Ultrasound (09/04): IMPRESSION: No evidence of portal venous thrombus. Small volume of ascites. CT scan of the chest (09/05): IMPRESSION: 1. There is mild left base linear scar/subsegmental atelectasis. 2. No pulmonary mass or nodule is seen. 3. No mediastinal or hilar adenopathy is seen. 4. There are small bilateral pleural effusions. 5. There is esophageal dilatation with distal tapering, raising the question of achalasia, distal esophageal stricture or mass, scleroderma or, less likely, Chagas disease. This can be more fully evaluated with a barium swallow, if clinically indicated. Assessment/Plan Assessment/Recommendations: Patient with cognitive impairment, and a difficult historian. Presents with long-standing heartburn, and more recent nausea, vomiting (versus, more likely, regurgitation), some degree of dysphagia, and an approximately [address] scan suggests distal esophageal narrowing, with proximal dilatation. Rule out esophageal stricture/neoplasm versus dysmotility. Recommendations * Nothing by mouth after midnight tonight * EGD tomorrow * Further recommendations to follow the procedure Consult Acknowledgment - Thank you for your consult request.
[2017-09-07 22:27] VITALS: BP 130/86
[2017-09-08 07:28] VITALS: BP 106/70
--- NOTE | 2017-09-08 08:43 | PN- Housestaff ---
Bety WILLIS,[facility] 09/08/17 0843: Subjective Follow-up For: Bradycardia severe malnutrition Dysphagia, Tele-Events Since Last Visit: Sinus Pacing with HR 59-82. No overnight events. Subjective: Feels well. Offers no complaints. Denies any feelings of chest discomfort, shortness of breath or any other associated symptoms. Review of Systems Constitutional: Reports: no symptoms. Objective Last 24 Hrs of Vital Signs/I&O Vital Signs Date Time Temp Pulse Resp B/P B/P Pulse O2 O2 Flow FiO2 Mean Ox Delivery Rate 09/08 1227 66 150/90 94 Room Air 09/08 0728 97.9 66 18 106/70 97 Room Air 09/08 0000 Room Air 09/07 2227 98.8 60 16 130/86 95 Room Air Intake & Output 09/08 1600 09/08 0800 09/08 0000 Intake Total 400 500 Output Total 650 325 Balance -250 175 Intake, IV 400 400 Intake, Oral 100 Number 0 Bowel Movements Output, Urine 650 325 Patient 109 lb Weight Weight Bed scale Measurement Method Physical Exam General Appearance: Alert, Oriented X3, Cooperative, No Acute Distress, cachetic Skin: No Rashes, No Breakdown Skin Temp/Moisture Exam: Warm/Dry Sepsis Skin Exam (color): Normal for Ethnicity HEENT: Atraumatic Cardiovascular: Normal S1, Normal S2, No Murmurs Lungs: Normal Air Movement Abdomen: Soft, No Tenderness Neurological: Normal Speech Extremities: No Edema Assessment/Plan Assessment: 67-year-old gentleman with a past medical history significant for GERD and developmental delay, who came in to the ED for chief complaint of persistent vomiting and heartburn. Patient was initially admitted to the ICU after he was found to hypotensive and bradycardic in the ED. After fluid resuscitation, his blood pressure improved. He underwent pacemaker implantation on 09/06/17. He was transferred to telemetry overnight. As he had symptoms of dysphagia with inability to tolerate PO intake. A CT scan was suspicious for esophageal mass vs stricuture for which he was scheduled for an EGD today. Assessment: 1. Sinus bradycardia s/p pacemaker 2. Severe Malnutrition 3. Esophageal mass Plan: * Continue monitoring on telemetry for now until pacemaker interrogation is complete. Can be downgraded after that. 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 Biopsies were obtained. * He may have a possible stent placement. * Await pathology results. * Oncology results. * CT Abd/Chest images were reviewed with radiology. It does not appear there is evidence of any mass/metastases outside of whats reported in esophagus. * He will likely require PET scan which can possibly done outpatient. * Diet: Clear Liquid diet * DVT Prophylaxis: SC Lovenox * Code: Full Code Patient brother Mr. Arnav Ricketts is the appointed conservator for the patient, he can be reached at [phone]. Conservator also mentioned that information can be released to patient's daughter in law Jessica. Patient's also can be reached at [phone]. Problem List: 1. Symptomatic bradycardia Pain Ratin Pain Location: none Pain Goal: Remain pain free Pain Plan: none Tomorrow's Labs & Rationales: CBC, BEP, Prealbumin Eliel Augustine 09/08/17 1101: Attending MD Review Statement Attending Statement Attending MD Statement: examined this patient, discuss w/resident/PA/TIRE TECHNICIAN, agreed w/resident/PA/TIRE TECHNICIAN, discussed with family, reviewed EMR data (avail), discussed with nursing, discussed with case mgmt, reviewed images, amended to note Attending Assessment/Plan: Patient went for EGD this am. Family bedside. POA is brother. Will follow up results.
--- NOTE | 2017-09-08 11:36 | Proc Note Endoscopy ---
Endoscopy Procedure Procedure Date: 09/08/17 Procedure Type: EGD w/biopsy Electronic Bench Technician: Salvador Freeman M.D. ASA Classification: III Indications: Dysphagia, regurgitation, weight loss Instrument: diagnostic gastroscope Meds Received: KATHE Patient's Tolerance: good Complications: none Extent Reached: second part of duodenum Procedure: Informed/witnessed consent was obtained over the telephone from the patient's brother, Arnav Ricketts. The patient was medicated. Lidocaine pharyngeal spray was administered. Pulse oximetry, blood pressure and cardiac monitoring were performed continuously throughout the procedure. The Olympus high-definition gastroscope was inserted into the mouth and advanced to the duodenum. Retroflexion was performed within the stomach to examine the cardia. Careful examination was performed. Findings: The proximal/mid esophagus was dilated. There were retained secretions which were suctioned. At 40 cm was a narrowing/convergence of folds. Just distal to this starting at 41 cm was an exophytic lesion occupying one quarter of the circumference, and by 42 cm there was a near circumferential lesion/friability, with a stricture effect and resistance to passage. The GE junction was at 44 cm. The stomach had normal distention. Retroflexed view demonstrated involvement of the cardia by tumor (on the lesser curvature). The remainder of the stomach had normal mucosa and folds aside from several small fundic polyps. The pyloric channel, duodenal bulb and duodenal sweep were normal. Multiple biopsies were obtained from distal esophagus, GE junction, and cardia ( retroflexed). Impression: * GE junction tumor, involving distal esophagus and cardia Recommendations: * Await pathology * Review recent imaging (CT scans of chest, abdomen, pelvis) with radiology to ascertain if adequate for staging * Pending above, medical oncology and radiation oncology consultations * May need to consider esophageal stent * Attempt clear liquid diet for now CC: Wade WILLIS,[facility]
[2017-09-08 12:27] VITALS: BP 150/90
--- NOTE | 2017-09-08 13:56 | PN- Cardiology ---
Subjective Subjective: Stable cardiac status. No new symptoms. Pacemaker function appears normal. Objective Vital Signs and I&Os Vital Signs Date Time Temp Pulse Resp B/P B/P Pulse O2 O2 Flow FiO2 Mean Ox Delivery Rate 09/08 1227 66 150/90 94 Room Air 09/08 0728 97.9 66 18 106/70 97 Room Air 09/08 0000 Room Air 09/07 2227 98.8 60 16 130/86 95 Room Air Intake & Output 09/08 1600 09/08 0809/08 0000 09/07 1600 09/07 0809/07 0000 Intake Total 277 862 4107 800 640 Output Total 650 325 380 500 750 Balance -523 259 6302 300 -110 Intake, IV 400 400 800 700 300 Intake, Oral 100 580 100 340 Number 0 Bowel Movements Output, 30 50 Emesis Output, Urine 650 325 350 500 700 Patient 109 lb 102 lb Weight Weight Bed scale Bed scale Measurement Method Physical Exam: General Appearance: well developed/nourished, alert, awake, oriented Head: normal HEENT: Normal Neck: supple, JVP normal, carotid upstrokes normal bilaterally, no masses or thyromegaly Respiratory: chest non-tender, clear to auscultation and percussion bilaterally Cardiovascular: regular rate/rhythm, normal S1, S2, 1/6 systolic murmur Abdomen: normal bowel sounds, soft, non-tender Extremities: normal inspection, no edema Vascular: Pulses are 2+ and equal bilaterally Neurologic: Grossly normal/nonfocal Current Medications: Current Medications Sig/Triston Start time Last Medication Dose Route Stop Time Status Admin Acetaminophen 1,000 MG Q6P PRN 09/06 1645 AC 09/07 N/A 1 UNIT IV 0758 Acetaminophen 650 MG Q6P PRN 09/04 1600 AC PO Atropine Sulfate 0.5 MG ONCE PRN 09/04 1800 AC IV Dextrose/Sodium 1,000 ML Q13H 09/04 1800 DC 09/07 Chloride IV 1444 Enoxaparin Sodium 40 MG DAILY 09/07 09 AC 09/08 SC 1253 Lidocaine 1 NATALIE .STK-MED ONE 09/08 1136 DC TOP 09/08 1137 Lidocaine 50 ML .STK-MED ONE 09/08 1136 DC TOP 09/08 1137 Pantoprazole Sodium 40 MG BID 09/04 2100 AC 09/08 IV 0806 Tramadol HCl 50 MG Q6-PRN PRN 09/06 1345 AC PO Results Last 48 Hrs of Labs/Mics: Laboratory Tests 09/07/17 0330: Anion Gap 7, Estimated GFR > 60, Glucose 111 H, Calcium 8.0 L, Phosphorus 3.0, Magnesium 1.7, Total Bilirubin 0.3, AST 16 L, ALT 15 L, Albumin 2.5 L, CBC w Diff NO MAN DIFF REQ, RBC 4.07 L, MCV 89.5, MCH 29.4, MCHC 32.9 L, RDW 13.2, MPV 8.0, Gran % 85.2 H, Lymphocytes % 6.7 L, Monocytes % 5.7, Eosinophils % 2.2, Basophils % 0.2, Absolute Granulocytes 5.0, Absolute Lymphocytes 0.4 L, Absolute Monocytes 0.3, Absolute Eosinophils 0.1, Absolute Basophils 0 Assessment/Plan Assessment/Plan Assessment: 1. Nausea and vomiting, possible gastroenteritis 2. Sinus bradycardia with hypotension and bifascicular block 3. Possible lung mass Plan: * Okay for transfer to [address] [place] [address] * Stable post pacemaker insertion by Dr. Sidhu. Pacemaker function appears normal. Interrogation pending * Otherwise continue as per the medical/ICU team; EGD with Dr. Freeman pending today * Echocardiogram reviewed, LV function normal, no significant valvular disease Continue telemetry? Yes
[2017-09-08 14:47] VITALS: BP 120/90
--- NOTE | 2017-09-08 16:46 | PN- Gastroenterology ---
Assessment/Plan GI Assessment/Recommendations: (*I took over the inpatient GI service on 09/08/17. Extensive records reviewed. Dr. Zainab Freeman's GI consult of 09/07/17 appreciated). 67 y/o male with cognitive dysfunction, living alone, with help from visiting aid & brother. No cigarettes. No alcohol. Poor historian. Apparently, long- standing GERD, recently put on PPI by PMD. Positive family history of esophageal CA (patient's brother). The patient was admitted to [facility] 09/04/17 with at least 6 weeks of postprandial regurgitation, nausea & vomiting, with questionable dysphagia to solids, and 50 lb weight loss. There was no hematemesis, melena, abdominal pain, CP, SOB, or odynophagia. CT showed a dilated proximal esophagus with distal narrowing. He also had symptomatic bradycardia with hypotension, requiring atropine. Lyme titer- negative. The patient was seen by the cardiology & cardiothoracic services. He had an MRI compatible dual-chamber pacemaker placed on 09/06/17. He was seen in GI consultation by Dr. Zainab Freeman on 09/07/17. 09/04/17: ECHOCARDIOGRAM- CONCLUSIONS: Normal left ventricular ejection fraction visually estimated at > 60%. Trace mitral regurgitation. Trace tricuspid regurgitation. Speedy Santoro M.D. 09/04/17: XRY-PORTABLE CHEST XRAY- Hyperinflated emphysematous lungs. A 2 cm indistinct masslike density in the left mid lung. CT scan evaluation can be considered. Borderline cardiac size. 09/04/17: CT ABD & PELVIS W IV CONTRAST- There is a paucity of intra-abdominal fat which limits assessment. The distal esophagus is fluid-filled and demonstrates a small hiatal hernia. Mild small bowel mucosal hyperemia may be present, possibly reflecting an enteritis. A small amount of fluid within the pelvis is suspected. Heterogeneous attenuation within the right portal vein, likely due to streak artifact. Correlation with ultrasound is suggested to ensure normal portal venous flow. No definite liver metastases or dilated ducts seen. DJD. 09/04/17: US-ABD/PELV ORGAN DOPPLER- No evidence of portal venous thrombus. Small volume of ascites. 09/04/17: EKG- Sinus bradycardia @ 43, RBBB/LAHB, NSST 09/05/17: CT CHEST WO IV CONTRAST- 1. There is mild left base linear scar/subsegmental atelectasis. 2. No pulmonary mass or nodule is seen. 3. No mediastinal or hilar adenopathy is seen. 4. There are small bilateral pleural effusions. 5. There is esophageal dilatation with distal tapering, raising the question of achalasia, distal esophageal stricture or mass, scleroderma or, less likely, Chagas disease. This can be more fully evaluated with a barium swallow, if clinically indicated. 09/06/17: XRY-CHEST XRAY, SINGLE VIEW/CR CHEST/INTRAOPERATIVE FLUOROSCOPY- IMPRESSION: Administrative dictation for intraoperative fluoroscopy and image archiving PM insertion in PACS. Please refer to operative notes for details. 09/06/17: XRY-PORTABLE CHEST XRAY- No pneumothorax is seen status-post left subclavian pacemaker placement. The lungs appear clear. 09/06/17: EKG- Atrial paced complexes, paired PVCs, aberrant complexes, possibly supraventricular, LBBB. 09/08/17: EGD with biopsy, per Dr. Maribel Freeman- Proximal/mid esophagus was dilated. There were retained secretions, which were suctioned. Exophytic lesion starting at 41 cm, occupying 1/4 of the circumference. Near circumferential lesion/friability at 42 cm, with stricture & resistance to passage. GEJ at 44 cm. tumor involvement of lesser curvature aspect of the gastric cardia noted on retroflexion. Normal gastric distention. Normal distal stomach. Patent pylorus. Normal duodenum. *Multiple biopsies obtained from distal esophagus, GE junction, & cardia (retroflexed). Impression: * GE junction tumor, involving distal esophagus and cardia. *As of 09/08/17, the patient remained with cognitive dysfunction. He was again informed of the GEJ tumor, involving the distal esophagus & gastric cardia, noted earlier today, per Dr. Maribel Freeman. He tolerated wild rinaldi Ensure uneventfully, and was requesting more. He had no signs or symptoms of aspiration. There was no overt GI bleeding or melena. He denied any nausea or vomiting. There was no abdominal pain, CP, or SOB. *SUGGEST- *Await 09/08/17: multiple biopsies from distal esophagus, GE junction, & cardia, per Dr. Maribel Freeman. *Trial of clear liquids po for now, with aspiration precautions. *Nutritional supplements (patient prefers wild rinaldi or chocolate Ensure). Repplete lytes. *No definite metastatic disease noted on inpatient CT CAP-> *NO lung mass seen on CT chest. *Eventual medical oncology & RT oncology input (but need tissue diagnosis back). *May need esophageal stent, if patient cannot sustain himself (&/or possible resumption of IVF). *May need outpt EUS for staging purposes. *Continuing care input regarding logistics of care, as patient lives alone, and has cognitive dysfunction. *PPI BID. *Zofran as needed. *DVT prophylaxis. *Consider hospitalist conference with POA for aggressiveness/ goals of care. Follow-up with cardiology, post PPM. The above was discussed with Dr. Augustine 09/08/17. Further GI recommendations to follow, depending on clinical course. Problem List: 1. Dysphagia 2. Esophageal cancer 3. Severe malnutrition 4. Nausea and vomiting 5. GERD (gastroesophageal reflux disease) 6. 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 Zainab Freeman. *Pathology pending. 09/08/17: EGD with biopsy, per Dr. Maribel Freeman- Proximal/mid esophagus was dilated. There were retained secretions, which were suctioned. Exophytic lesion starting at 41 cm, occupying 1/4 of the circumference. Near circumferential lesion/friability at 42 cm, with stricture & resistance to passage. GEJ at 44 cm. tumor involvement of lesser curvature aspect of the gastric cardia noted on retroflexion. Normal gastric distention. Normal distal stomach. Patent pylorus. Normal duodenum. *Multiple biopsies obtained from distal esophagus, GE junction, & cardia (retroflexed). Impression: * GE junction tumor, involving distal esophagus and cardia. *As of 09/08/17, the patient's VS were relatively stable postop (mild HTN/triston) , with BP 120/90, P 58, R 18, T 97.9 (Tm 98.8), O2 sat RA 97%. He remained with poor insight into his overall condition. He has underlying cognitive dysfunction. I again informed him of the esophageal tumor that was found by DR. Maribel Freeman earlier today. He tolerated wild rinaldi Ensure without difficulty & was requesting more. He had false upper & lower teeth. He denied any nausea, vomiting, abdominal pain, CP, SOB, fevers, chills, or jaundice. There was no overt GI bleeding or melena. Review of Systems: Full 14 point ROS otherwise noncontributory & as per HPI. Constitutional: Reports: weakness, unexplained weight loss. EENTM: Reports: no symptoms. Cardiovascular: Reports: no symptoms. Respiratory: Reports: no symptoms. GI: Reports: nausea, vomiting-> currently stable. Genitourinary: Reports: no symptoms. Musculoskeletal: Reports: no symptoms. Skin: Reports: no symptoms. Neurological/Psychological: Reports: no symptoms. Hematologic/Endocrine: Reports: no symptoms. Immunologic/Allergic: Reports: no symptoms. All Other Systems: Reviewed and Negative Objective Vital Signs and I&Os Vital Signs Date Time Temp Pulse Resp B/P B/P Pulse O2 O2 Flow FiO2 Mean Ox Delivery Rate 09/08 1541 Room Air Room Air 09/08 1447 97.9 58 18 120/90 97 Room Air 09/08 1227 66 150/90 94 Room Air 09/08 0728 97.9 66 18 106/70 97 Room Air 09/08 0000 Room Air 09/07 2227 98.8 60 16 130/86 95 Room Air Intake & Output 09/08 1600 09/08 0400 09/07 1600 09/07 0400 09/06 1600 09/06 0400 Intake Total 774 580 9542 640 1630 800 Output Total 1000 325 880 750 900 Balance -60 175 1300 -110 730 800 Intake, IV 621 370 0639 300 1630 800 Intake, Oral 240 100 680 340 Number 0 0 0 Bowel Movements Output, 30 50 Emesis Output, Urine 1000 325 850 700 900 Patient 109 lb 102 lb 98 lb 8.75 oz Weight Weight Bed scale Bed scale Bed scale Measurement Method Physical Exam: Well-developed, thin, malnourished male, looking older than his state age, in no apparent distress. Sclera anicteric. Conjunctiva pink. Oropharynx clear. Slightly dry mucus membranes. No oral thrush. No aphthous ulcers. False upper & lower teeth. There is no adenopathy, thyromegaly, or JVD. No peripheral stigmata of inflammatory bowel disease or chronic liver disease on exam. No spiders on the anterior chest wall. No gynecomastia. No CVA tenderness. Clean PPM site in left upper chest wall. Lungs: clear to A&P. No wheezing, rales, or rhonchi. Heart exam: regular rate rhythm, S1 and S2, without any murmur. Abdominal exam: normal bowel sounds, soft scaphoid belly, nontender, without guarding or rebound. No mass. No organomegaly. No fluid shift. No pulsatile mass. No epigastric bruit. Digital rectal exam: deferred. Extremities: without C, C, or E. Mild DJD. No rash.No palpable cords. Distal pulses 1+ bilaterally. DTRs 2+ bilaterally. Alert and oriented x 3. Motor 4/5 B/L. No tremor. No asterixis. Current Medications: Current Medications Sig/Triston Start time Last Medication Dose Route Stop Time Status Admin Acetaminophen 1,000 MG Q6P PRN 09/06 1645 AC 09/07 N/A 1 UNIT IV 0758 Acetaminophen 650 MG Q6P PRN 09/04 1600 AC PO Atropine Sulfate 0.5 MG ONCE PRN 09/04 1800 AC IV Dextrose/Sodium 1,000 ML Q13H 09/04 1800 DC 09/07 Chloride IV 1444 Enoxaparin Sodium 40 MG DAILY 09/07 0900 AC 09/08 SC 1253 Lidocaine 1 NATALIE .STK-MED ONE 09/08 1136 [facility] 09/08 1137 Lidocaine 50 ML .STK-MED ONE 09/08 1136 [facility] 09/08 1137 Pantoprazole Sodium 40 MG BID 09/04 2100 AC 09/08 IV 0806 Tramadol HCl 50 MG Q6-PRN PRN 09/06 1345 AC PO Results Pertinent Lab Results: Laboratory Tests 09/07 09/06 0330 0420 Chemistry Sodium (137 - 145 mmol/L) 134 L 135 L Potassium (3.5 - 5.1 mmol/L) 3.6 3.3 L Chloride (98 - 107 mmol/L) 102 104 Carbon Dioxide (22 - 30 mmol/L) 25 24 Anion Gap (5 - 16) 7 7 BUN (9 - 20 mg/dL) 5 L 10 Creatinine (0.7 - 1.2 mg/dL) 0.7 0.7 Estimated GFR (>60 ml/min) > 60 > 60 Glucose (65 - 99 mg/dL) 111 H 95 Calcium (8.4 - 10.2 mg/dL) 8.0 L 8.4 Phosphorus (2.5 - 4.5 mg/dL) 3.0 2.7 Magnesium (1.6 - 2.3 mg/dL) 1.7 1.4 L Total Bilirubin (0.2 - 1.3 mg/dL) 0.3 0.4 AST (17 - 59 U/L) 16 L 16 L ALT (21 - 72 U/L) 15 L 20 L Albumin (3.5 - 5.0 g/dL) 2.5 L 2.6 L Hematology CBC w Diff NO MAN DIFF REQ NO MAN DIFF REQ WBC (4.8 - 10.8 /CUMM) 5.9 4.3 L RBC (4.70 - 6.10 /CUMM) 4.07 L 4.01 L Hgb (14.0 - 18.0 G/DL) 12.0 L 11.9 L Hct (42 - 52 %) 36.4 L 35.5 L MCV (80.0 - 94.0 FL) 89.5 88.7 MCH (27.0 - 31.0 PG) 29.4 29.7 MCHC (33.0 - 37.0 G/DL) 32.9 L 33.4 RDW (11.5 - 14.5 %) 13.2 13.6 Plt Count (130 - 400 /CUMM) 205 204 MPV (7.4 - 10.4 FL) 8.0 8.3 Gran % (42.2 - 75.2 %) 85.2 H 74.1 Lymphocytes % (20.5 - 51.1 %) 6.7 L 13.6 L Monocytes % (1.7 - 9.3 %) 5.7 7.0 Eosinophils % (0 - 5 %) 2.2 4.7 Basophils % (0.0 - 2.0 %) 0.2 0.6 Absolute Granulocytes (1.4 - 6.5 /CUMM) 5.0 3.2 Absolute Lymphocytes (1.2 - 3.4 /CUMM) 0.4 L 0.6 L Absolute Monocytes (0.10 - 0.60 /CUMM) 0.3 0.3 Absolute Eosinophils (0.0 - 0.7 /CUMM) 0.1 0.2 Absolute Basophils (0.0 - 0.2 /CUMM) 0 0 Imaging/Other Studies: 09/04/17: ECHOCARDIOGRAM- CONCLUSIONS: Normal left ventricular ejection fraction visually estimated at > 60%. Trace mitral regurgitation. Trace tricuspid regurgitation. Speedy Santoro M.D. 09/04/17: XRY-PORTABLE CHEST XRAY- Hyperinflated emphysematous lungs. A 2 cm indistinct masslike density in the left mid lung. CT scan evaluation can be considered. Borderline cardiac size. 09/04/17: CT ABD & PELVIS W IV CONTRAST- There is a paucity of intra-abdominal fat which limits assessment. The distal esophagus is fluid-filled and demonstrates a small hiatal hernia. Mild small bowel mucosal hyperemia may be present, possibly reflecting an enteritis. A small amount of fluid within the pelvis is suspected. Heterogeneous attenuation within the right portal vein, likely due to streak artifact. Correlation with ultrasound is suggested to ensure normal portal venous flow. No definite liver metastases or dilated ducts seen. DJD. 09/04/17: US-ABD/PELV ORGAN DOPPLER- No evidence of portal venous thrombus. Small volume of ascites. 09/04/17: EKG- Sinus bradycardia @ 43, RBBB/LAHB, NSST 09/05/17: CT CHEST WO IV CONTRAST- 1. There is mild left base linear scar/subsegmental atelectasis. 2. No pulmonary mass or nodule is seen. 3. No mediastinal or hilar adenopathy is seen. 4. There are small bilateral pleural effusions. 5. There is esophageal dilatation with distal tapering, raising the question of achalasia, distal esophageal stricture or mass, scleroderma or, less likely, Chagas disease. This can be more fully evaluated with a barium swallow, if clinically indicated. 09/06/17: XRY-CHEST XRAY, SINGLE VIEW/CR CHEST/INTRAOPERATIVE FLUOROSCOPY-
[2017-09-08 22:31] VITALS: BP 98/60
[2017-09-09 06:56] VITALS: BP 108/66
[2017-09-09 08:08] LABS: ABSOLUTE BASOPHIL COUNT 0 /CUMM (0.0-0.2); ABSOLUTE EOSINOPHIL COUNT 0.2 /CUMM (0.0-0.7); ABSOLUTE GRANULOCYTE CT 2.9 /CUMM (1.4-6.5); ABSOLUTE LYMPH COUNT 0.6 /CUMM (1.2-3.4); ABSOLUTE MONOCYTE COUNT 0.3 /CUMM (0.10-0.60); BASOPHIL % 0.5 % (0.0-2.0); HEMATOCRIT 34.4 % (42-52); MEAN CORPUSCULAR HGB 28.9 PG (27.0-31.0); MEAN CORPUSCULAR HGB CONC 32.3 G/DL (33.0-37.0); MEAN CORPUSCULAR VOLUME 89.4 FL (80.0-94.0); MEAN PLATELET VOLUME 8.2 FL (7.4-10.4); PLATELET COUNT 181 /CUMM (130-400); RBC DISTRIBUTION WIDTH 13.6 % (11.5-14.5); RED BLOOD CELL CT 3.85 /CUMM (4.70-6.10); WHITE BLOOD CELL COUNT 4.1 /CUMM (4.8-10.8)
--- NOTE | 2017-09-09 09:01 | PN- Housestaff ---
[facility] WILL[facility] 0901: Subjective Follow-up For: Bradycardia severe malnutrition Dysphagia secondary to lower esophageal mass which possibly malignant in nature Subjective: Afebrile, mildly hypertensive, saturating well on room air. No acute overnight event was reported. The patient had one episode of nonbloody vomiting earlier today. He denies nausea, abdominal pain, diarrhea or constipation. Review of Systems Constitutional: Reports: no symptoms, see HPI. Objective Last 24 Hrs of Vital Signs/I&O Vital Signs Date Time Temp Pulse Resp B/P B/P Pulse O2 O2 Flow FiO2 Mean Ox Delivery Rate 09/09 0656 99.0 64 18 108/66 97 Room Air 09/08 2231 98.9 60 18 98/60 97 Room Air 09/08 1541 Room Air Room Air 09/08 1447 97.9 58 18 120/90 97 Room Air Intake & Output 09/09 1600 09/09 0800 09/09 0000 Intake Total 480 Output Total 300 500 Balance -300 -20 Intake, Oral 480 Output, Urine 300 500 Patient 49.442 kg Weight Weight Bed scale Measurement Method Physical Exam General Appearance: Alert, Oriented X3, Cooperative, No Acute Distress Skin: No Rashes HEENT: Atraumatic, PERRLA, EOMI, Mucous Membr. moist/pink Neck: No JVD Cardiovascular: Regular Rate, Normal S1, Normal S2, No Murmurs Lungs: Clear to Auscultation, Normal Air Movement Abdomen: Soft, No Tenderness Neurological: Normal Speech Extremities: No Clubbing, No Cyanosis, No Edema Current Medications: Current Medications Sig/Triston Start time Last Medication Dose Route Stop Time Status Admin Acetaminophen 1,000 MG Q6P PRN 09/06 1645 AC 09/07 N/A 1 UNIT IV 0758 Acetaminophen 650 MG Q6P PRN 09/04 1600 AC PO Atropine Sulfate 0.5 MG ONCE PRN 09/04 1800 AC IV Dextrose/Sodium 1,000 ML Q13H 09/04 1800 DC 09/07 Chloride IV 1444 Enoxaparin Sodium 40 MG DAILY 09/07 0900 AC 09/09 SC 0823 Pantoprazole Sodium 40 MG BID 09/04 2100 AC 09/09 IV 0823 Tramadol HCl 50 MG Q6-PRN PRN 09/06 1345 AC PO Last 24 Hrs of Lab/Rasheed Results Last 24 Hrs of Labs/Mics: Laboratory Tests 09/09/17 0640: Anion Gap 6, Estimated GFR > 60, BUN/Creatinine Ratio 11.7, Prealbumin 10.3 L, CBC w Diff NO MAN DIFF REQ, RBC 3.85 L, MCV 89.4, MCH 28.9, MCHC 32.3 L, RDW 13.6, MPV 8.2, Gran % 72.0, Lymphocytes % 15.4 L, Monocytes % 8.1, Eosinophils % 4.0, Basophils % 0.5, Absolute Granulocytes 2.9, Absolute Lymphocytes 0.6 L, Absolute Monocytes 0.3, Absolute Eosinophils 0.2, Absolute Basophils 0 Assessment/Plan Assessment: 67-year-old gentleman with a PMH significant for GERD and developmental delay, who came in to the ED for chief complaint of persistent vomiting and heartburn. He was admitted to ICU for symptomatic bradycardia. He underwent pacemaker implantation on 09/06/17. He tolerated the procedure well. CT scan was done to evaluate dysphagia and showed a lower esophageal mass, EGD yesterday showed lower esophageal mass that's suspicious for malignancy, biopsy was obtained. Currently the patient is not tolerating full liquid, we will start him back in clear liquid and discussed the best way of feeding and therefore the evaluation of the possible malignancy done as an outpatient. Assessment: 1. Symptomatic sinus bradycardia s/p pacemaker 2. Severe Malnutrition 2/2 dysphagia with low prealbumin 3. Esophageal mass with EGD showing possible malignancy Plan: * Continue telemetry for now, we will discuss downgrading with the attending given that interrogation was normal. * He has severe malnutrition likely in the setting of poor oral intake ( dysphagia/odynophagia) secondary to possible lower esophageal malignancy. Biopsies were obtained, pending results * The patient cannot tolerate solid food, we will discuss with GI stent versus PEG tube * CT Abd/Chest did not show evidence of metastasis, however he will need PET scan as an outpatient * Diet: Clear Liquid diet, the patient didn't tolerate full liquids earlier today. * DVT Prophylaxis: SC Lovenox * Code: Full Code Patient brother Mr. Arnav Ricketts is the appointed conservator for the patient, he can be reached at [phone]. Conservator also mentioned that information can be released to patient's daughter in law Jessica. Patient's also can be reached at [phone]. Problem List: 1. Dysphagia 2. Nausea and vomiting 3. Symptomatic bradycardia Pain Ratin Pain Location: na Pain Goal: Remain pain free Pain Plan: See A&P Tomorrow's Labs & Rationales: BEP to follow K and Na. Mahesh Rosado MD 09/09/17 1516: Attending MD Review Statement Attending Statement Attending MD Statement: examined this patient, discuss w/resident/PA/CREDIT CARD CONTROL CLERK, agreed w/resident/PA/CREDIT CARD CONTROL CLERK, discussed with family Attending Assessment/Plan: The patient was seen and discussed with house staff. Appreciate Pulmonary and Cardiology input. Tolerated pacemaker well. Echocardiogram showed LV function that is normal without any valvular disease. Still continues to experience regurgitation, even with liquids. Significant weight loss noted. Patient is malnourished. Patient denies any other specific symptoms On examination vital signs blood pressure 112/76, heart rate 60, afebrile, respirations 18/m, saturating 19% on room air. Discuss with GI who recommended that after discussing with the power of attorney law clerk , patient will be a candidate for an esophageal stent and will also need an endoscopic ultrasound. However endoscopic ultrasound probably needs to be performed first. Patient might need transfer to [place] for further management.
--- NOTE | 2017-09-09 11:45 | PN- Cardiology ---
Subjective Subjective: The patient is awake, alert The events of the last 24 hours as well as telemetry were reviewed. Review of Systems: The review of systems is negative for chest pains, palpitations nor lightheadedness. The remainder of the 14 point review of systems is noncontributory with the exception of above. Objective Vital Signs and I&Os Vital Signs Date Time Temp Pulse Resp B/P B/P Pulse O2 O2 Flow FiO2 Mean Ox Delivery Rate 09/09 0656 99.0 64 18 108/66 97 Room Air 09/08 2231 98.9 60 18 98/60 97 Room Air 09/08 1541 Room Air Room Air 09/08 1447 97.9 58 18 120/90 97 Room Air 09/08 1227 66 150/90 94 Room Air Intake & Output 09/09 1600 09/09 0800 09/09 0000 09/08 1600 09/08 0800 09/08 0000 Intake Total 480 540 400 500 Output Total 300 500 350 650 325 Balance -300 -20 190 -250 175 Intake, IV 300 400 400 Intake, Oral 480 240 100 Number 0 0 Bowel Movements Output, Urine 300 500 350 650 325 Patient 109 lb 109 lb Weight Weight Bed scale Bed scale Measurement Method Physical Exam: General: Nontoxic, no apparent distress. HEENT: Sclera and conjunctiva within normal limits, without xanthelasmas. Neck: Carotids 2+ without bruits. Respiratory: Scattered rhonchi, air movement is good, without accessory respiratory muscle use. Heart: Regular rate and rhythm, without murmurs, without JVD. Abdomen: Soft, nontender, no masses, normoactive bowel sounds. Extremities: Without clubbing, cyanosis, without edema. Neuro: Nonfocal exam, strength, 5 out of 5 Skin: Within normal limits without lesions. Psych: Mood and affect: Normal Current Medications: Current Medications Sig/Triston Start time Last Medication Dose Route Stop Time Status Admin Acetaminophen 1,000 MG Q6P PRN 09/06 1645 AC 09/07 N/A 1 UNIT IV 0758 Acetaminophen 650 MG Q6P PRN 09/04 1600 AC PO Atropine Sulfate 0.5 MG ONCE PRN 09/04 1800 AC IV Dextrose/Sodium 1,000 ML Q13H 09/04 1800 DC 09/07 Chloride IV 1444 Enoxaparin Sodium 40 MG DAILY 09/07 0900 AC 09/09 SC 0823 Pantoprazole Sodium 40 MG BID 09/04 2100 AC 09/09 IV 0823 Tramadol HCl 50 MG Q6-PRN PRN 09/06 1345 AC PO Results Last 48 Hrs of Labs/Mics: Laboratory Tests 09/09/17 0640: Anion Gap 6, Estimated GFR > 60, BUN/Creatinine Ratio 11.7, Prealbumin 10.3 L, CBC w Diff NO MAN DIFF REQ, RBC 3.85 L, MCV 89.4, MCH 28.9, MCHC 32.3 L, RDW 13.6, MPV 8.2, Gran % 72.0, Lymphocytes % 15.4 L, Monocytes % 8.1, Eosinophils % 4.0, Basophils % 0.5, Absolute Granulocytes 2.9, Absolute Lymphocytes 0.6 L, Absolute Monocytes 0.3, Absolute Eosinophils 0.2, Absolute Basophils 0 Assessment/Plan Assessment/Plan 1. Nausea and vomiting, possible gastroenteritis 2. Sinus bradycardia with hypotension and bifascicular block 3. Possible lung mass Plan: * Patient is overall doing well from a cardiac standpoint, and we will continue treatment as per GI. * Stable post pacemaker insertion by Dr. Sidhu. Pacemaker function: normal. * Echocardiogram reviewed, LV function normal, no significant valvular disease Please contact us if further cardiac assistance is needed. Continue telemetry? No
[2017-09-09 14:32] VITALS: BP 112/76
--- NOTE | 2017-09-09 14:48 | PN- Gastroenterology ---
Assessment/Plan GI Assessment/Recommendations: (*I took over the inpatient GI service on 09/08/17. Extensive records reviewed. Dr. Zainab Freeman's GI consult of 09/07/17 appreciated). 67 y/o male with cognitive dysfunction, living alone, with help from visiting aid & brother. No cigarettes. No alcohol. Poor historian. Apparently, long- standing GERD, recently put on PPI by PMD. Positive family history of esophageal CA (patient's brother). The patient was admitted to [facility] 09/04/17 with at least 6 weeks of postprandial regurgitation, nausea & vomiting, with questionable dysphagia to solids, and 50 lb weight loss. There was no hematemesis, melena, abdominal pain, CP, SOB, or odynophagia. CT showed a dilated proximal esophagus with distal narrowing. He also had symptomatic bradycardia with hypotension, requiring atropine. Lyme titer- negative. The patient was seen by the cardiology & cardiothoracic services. He had an MRI compatible dual-chamber pacemaker placed on 09/06/17. He was seen in GI consultation by Dr. Zainab Freeman on 09/07/17. 09/04/17: ECHOCARDIOGRAM- CONCLUSIONS: Normal left ventricular ejection fraction visually estimated at > 60%. Trace mitral regurgitation. Trace tricuspid regurgitation. Speedy Santoro M.D. 09/04/17: XRY-PORTABLE CHEST XRAY- Hyperinflated emphysematous lungs. A 2 cm indistinct masslike density in the left mid lung. CT scan evaluation can be considered. Borderline cardiac size. 09/04/17: CT ABD & PELVIS W IV CONTRAST- There is a paucity of intra-abdominal fat which limits assessment. The distal esophagus is fluid-filled and demonstrates a small hiatal hernia. Mild small bowel mucosal hyperemia may be present, possibly reflecting an enteritis. A small amount of fluid within the pelvis is suspected. Heterogeneous attenuation within the right portal vein, likely due to streak artifact. Correlation with ultrasound is suggested to ensure normal portal venous flow. No definite liver metastases or dilated ducts seen. DJD. 09/04/17: US-ABD/PELV ORGAN DOPPLER- No evidence of portal venous thrombus. Small volume of ascites. 09/04/17: EKG- Sinus bradycardia @ 43, RBBB/LAHB, NSST 09/05/17: CT CHEST WO IV CONTRAST- 1. There is mild left base linear scar/subsegmental atelectasis. 2. No pulmonary mass or nodule is seen. 3. No mediastinal or hilar adenopathy is seen. 4. There are small bilateral pleural effusions. 5. There is esophageal dilatation with distal tapering, raising the question of achalasia, distal esophageal stricture or mass, scleroderma or, less likely, Chagas disease. This can be more fully evaluated with a barium swallow, if clinically indicated. 09/06/17: XRY-CHEST XRAY, SINGLE VIEW/CR CHEST/INTRAOPERATIVE FLUOROSCOPY- IMPRESSION: Administrative dictation for intraoperative fluoroscopy and image archiving PM insertion in PACS. Please refer to operative notes for details. 09/06/17: XRY-PORTABLE CHEST XRAY- No pneumothorax is seen status-post left subclavian pacemaker placement. The lungs appear clear. 09/06/17: EKG- Atrial paced complexes, paired PVCs, aberrant complexes, possibly supraventricular, LBBB. 09/08/17: EGD with biopsy, per Dr. Maribel Freeman- Proximal/mid esophagus was dilated. There were retained secretions, which were suctioned. Exophytic lesion starting at 41 cm, occupying 1/4 of the circumference. Near circumferential lesion/friability at 42 cm, with stricture & resistance to passage. GEJ at 44 cm. tumor involvement of lesser curvature aspect of the gastric cardia noted on retroflexion. Normal gastric distention. Normal distal stomach. Patent pylorus. Normal duodenum. *Multiple biopsies obtained from distal esophagus, GE junction, & cardia (retroflexed). Impression: * GE junction tumor, involving distal esophagus and cardia. *As of 09/08/17, the patient remained with cognitive dysfunction. He was again informed of the GEJ tumor, involving the distal esophagus & gastric cardia, noted earlier today, per Dr. Maribel Freeman. He tolerated wild rinaldi Ensure uneventfully, and was requesting more. He had no signs or symptoms of aspiration. There was no overt GI bleeding or melena. He denied any nausea or vomiting. There was no abdominal pain, CP, or SOB. 09/09/17: WBC 4.1, H/H 11.1/34.1, MCV 89.4, RDW 13.6, PLT 181, BUN/Cr 7/0.6, GFR > 60, Na 135, K 3.6, HCO3 26, AG 6, *PAB 10.3. *As of 09/09/17, the patient was still having difficulty with feeds. He tolerated Ensure, but just before attempting toast, had some nausea and vomiting. There was no overt GI bleeding. There was no overt GI bleeding. He denied any chest pain, shortness breath, fevers, chills, cough, or abdominal pain, but remained a poor historian, with cognitive issues. The medical house staff had unsuccessfully attempted to reach the patient's brother, having left him several messages. He was hemodynamically stable, with Tm 99 & O2 sat RA 97%. *SUGGEST- *Await 09/08/17: multiple biopsies from distal esophagus, GE junction, & cardia, per Dr. Maribel Freeman. *Trial of clear liquids po for now, with aspiration precautions. *Nutritional supplements (patient prefers wild rinaldi or chocolate Ensure). Calorie count. Replete lytes. *No definite metastatic disease noted on inpatient CT CAP-> *NO lung mass seen on CT chest. *Eventual medical oncology & RT oncology input (but need tissue diagnosis back first). *Will need esophageal stent, as patient probably cannot sustain himself (&/or possible resumption of IVF), with low PAB. Will need outpt EUS for staging purposes -> it is possible that esophageal stent may interfere with interpretation of EUS & therefore, may need transfer to [facility] for EUS, followed by esophageal stent. * Continuing care input regarding logistics of care, as patient lives alone, and has cognitive dysfunction. *PPI BID. *Zofran as needed. *DVT prophylaxis. * Consider hospitalist conference with pt's brother/POA for aggressiveness/goals of care (the medical house staff has left numerous messages with him). Follow-up with cardiology, post PPM. The above was discussed with Dr. Augustine 09/08/17, & again with the medical housestaff today. Further GI recommendations to follow, depending on clinical course. Problem List: 1. Dysphagia 2. Esophageal cancer 3. Severe malnutrition 4. Nausea and vomiting 5. GERD (gastroesophageal reflux disease) 6. Symptomatic bradycardia Subjective Subjective: 09/09/17: WBC 4.1, H/H 11.1/34.1, MCV 89.4, RDW 13.6, PLT 181, BUN/Cr 7/0.6, GFR > 60, Na 135, K 3.6, HCO3 26, AG 6, *PAB 10.3. *As of 09/09/17, the patient was still having difficulty with feeds. He tolerated Ensure, but just before attempting toast, had some nausea and vomiting. There was no overt GI bleeding. There was no overt GI bleeding. He denied any chest pain, shortness breath, fevers, chills, cough, or abdominal pain, but remained a poor historian, with cognitive issues. The medical house staff had unsuccessfully attempted to reach the patient's brother, having left him several messages. He was hemodynamically stable, with Tm 99 & O2 sat RA 97%. Review of Systems: Full 14 point ROS otherwise noncontributory & as per HPI. Constitutional: Reports: weakness, unexplained weight loss. EENTM: Reports: no symptoms. Cardiovascular: Reports: no symptoms. Respiratory: Reports: no symptoms. GI: Reports: nausea, vomiting (*usualy tolerates Ensure) Genitourinary: Reports: no symptoms. Musculoskeletal: Reports: no symptoms. Skin: Reports: no symptoms. Neurological/Psychological: Reports: no symptoms. Hematologic/Endocrine: Reports: no symptoms. Immunologic/Allergic: Reports: no symptoms. All Other Systems: Reviewed and Negative Objective Vital Signs and I&Os Vital Signs Date Time Temp Pulse Resp B/P B/P Pulse O2 O2 Flow FiO2 Mean Ox Delivery Rate 09/09 1432 97.9 60 18 112/76 99 Room Air 09/09 0656 99.0 64 18 108/66 97 Room Air 09/08 2231 98.9 60 18 98/60 97 Room Air 09/08 1541 Room Air Room Air 09/08 1447 97.9 58 18 120/90 97 Room Air Intake & Output 09/09 1600 09/09 0400 09/08 1600 09/08 0400 09/07 1600 09/07 0400 Intake Total 600 480 162 213 7469 640 Output Total 9699 519 4069 325 880 750 Balance -850 -20 -60 175 1300 -110 Intake, IV 695 333 0629 300 Intake, Oral 600 480 240 100 680 340 Number 0 0 Bowel Movements Output, 400 30 50 Emesis Output, Urine 9009 970 5468 325 850 700 Patient 109 lb 109 lb 102 lb Weight Weight Bed scale Bed scale Bed scale Measurement Method Physical Exam: Well-developed, thin, malnourished male, looking older than his state age, in no apparent distress. Sclera anicteric. Conjunctiva pink. Oropharynx clear. Slightly dry mucus membranes. No oral thrush. No aphthous ulcers. False upper & lower teeth. There is no adenopathy, thyromegaly, or JVD. No peripheral stigmata of inflammatory bowel disease or chronic liver disease on exam. No spiders on the anterior chest wall. No gynecomastia. No CVA tenderness. Clean PPM site in left upper chest wall. Lungs: clear to A&P. No wheezing, rales, or rhonchi. Heart exam: regular rate rhythm, S1 and S2, without any murmur. Abdominal exam: normal bowel sounds, soft scaphoid belly, nontender, without guarding or rebound. No mass. No organomegaly. No fluid shift. No pulsatile mass. No epigastric bruit. Digital rectal exam: deferred. Extremities: without C, C, or E. Mild DJD. No rash. No palpable cords. Distal pulses 1+ bilaterally. DTRs 2+ bilaterally. Alert and oriented x 3, but cognitive dysfunction. Motor 4/5 B/L. No tremor. No asterixis. Current Medications: Current Medications Sig/Triston Start time Last Medication Dose Route Stop Time Status Admin Acetaminophen 1,000 MG Q6P PRN 09/06 1645 AC 09/07 N/A 1 UNIT IV 0758 Acetaminophen 650 MG Q6P PRN 09/04 1600 AC PO Atropine Sulfate 0.5 MG ONCE PRN 09/04 1800 AC IV Enoxaparin Sodium 40 MG DAILY 09/07 0900 AC 09/09 SC 0823 Pantoprazole Sodium 40 MG BID 09/04 2100 AC 09/09 IV 0823 Polyethylene Glycol 17 GM DAILY 09/09 1431 AC PO Senna/Docusate Sodium 1 TAB BID PRN 09/09 1445 AC PO Tramadol HCl 50 MG Q6-PRN PRN 09/06 1345 AC PO Results Pertinent Lab Results: Laboratory Tests 09/09 09/07 0640 0330 Chemistry Sodium (137 - 145 mmol/L) 135 L 134 L Potassium (3.5 - 5.1 mmol/L) 3.6 3.6 Chloride (98 - 107 mmol/L) 103 102 Carbon Dioxide (22 - 30 mmol/L) 26 25 Anion Gap (5 - 16) 6 7 BUN (9 - 20 mg/dL) 7 L 5 L Creatinine (0.7 - 1.2 mg/dL) 0.6 L 0.7 Estimated GFR (>60 ml/min) > 60 > 60 BUN/Creatinine Ratio (7 - 25 %) 11.7 Glucose (65 - 99 mg/dL) 111 H Calcium (8.4 - 10.2 mg/dL) 8.0 L Phosphorus (2.5 - 4.5 mg/dL) 3.0 Magnesium (1.6 - 2.3 mg/dL) 1.7 Total Bilirubin (0.2 - 1.3 mg/dL) 0.3 AST (17 - 59 U/L) 16 L ALT (21 - 72 U/L) 15 L Albumin (3.5 - 5.0 g/dL) 2.5 L Prealbumin (17.6 - 36.0 mg/dL) 10.3 L Hematology CBC w Diff NO MAN DIFF REQ NO MAN DIFF REQ WBC (4.8 - 10.8 /CUMM) 4.1 L 5.9 RBC (4.70 - 6.10 /CUMM) 3.85 L 4.07 L Hgb (14.0 - 18.0 G/DL) 11.1 L 12.0 L Hct (42 - 52 %) 34.4 L 36.4 L MCV (80.0 - 94.0 FL) 89.4 89.5 MCH (27.0 - 31.0 PG) 28.9 29.4 MCHC (33.0 - 37.0 G/DL) 32.3 L 32.9 L RDW (11.5 - 14.5 %) 13.6 13.2 Plt Count (130 - 400 /CUMM) 181 205 MPV (7.4 - 10.4 FL) 8.2 8.0 Gran % (42.2 - 75.2 %) 72.0 85.2 H Lymphocytes % (20.5 - 51.1 %) 15.4 L 6.7 L Monocytes % (1.7 - 9.3 %) 8.1 5.7 Eosinophils % (0 - 5 %) 4.0 2.2 Basophils % (0.0 - 2.0 %) 0.5 0.2 Absolute Granulocytes (1.4 - 6.5 /CUMM) 2.9 5.0 Absolute Lymphocytes (1.2 - 3.4 /CUMM) 0.6 L 0.4 L Absolute Monocytes (0.10 - 0.60 /CUMM) 0.3 0.3 Absolute Eosinophils (0.0 - 0.7 /CUMM) 0.2 0.1 Absolute Basophils (0.0 - 0.2 /CUMM) 0 0 Imaging/Other Studies: 09/04/17: ECHOCARDIOGRAM- CONCLUSIONS: Normal left ventricular ejection fraction visually estimated at > 60%. Trace mitral regurgitation. Trace tricuspid regurgitation. Speedy aSntoro M.D. 09/04/17: XRY-PORTABLE CHEST XRAY- Hyperinflated emphysematous lungs. A 2 cm indistinct masslike density in the left mid lung. CT scan evaluation can be considered. Borderline cardiac size. 09/04/17: CT ABD & PELVIS W IV CONTRAST- There is a paucity of intra-abdominal fat which limits assessment. The distal esophagus is fluid-filled and demonstrates a small hiatal hernia. Mild small bowel mucosal hyperemia may be present, possibly reflecting an enteritis. A small amount of fluid within the pelvis is suspected. Heterogeneous attenuation within the right portal vein, likely due to streak artifact. Correlation with ultrasound is suggested to ensure normal portal venous flow. No definite liver metastases or dilated ducts seen. DJD. 09/04/17: US-ABD/PELV ORGAN DOPPLER- No evidence of portal venous thrombus. Small volume of ascites. 09/04/17: EKG- Sinus bradycardia @ 43, RBBB/LAHB, NSST 09/05/17: CT CHEST WO IV CONTRAST- 1. There is mild left base linear scar/subsegmental atelectasis. 2. No pulmonary mass or nodule is seen. 3. No mediastinal or hilar adenopathy is seen. 4. There are small bilateral pleural effusions. 5. There is esophageal dilatation with distal tapering, raising the question of achalasia, distal esophageal stricture or mass, scleroderma or, less likely, Chagas disease. This can be more fully evaluated with a barium swallow, if clinically indicated. 09/06/17: XRY-CHEST XRAY, SINGLE VIEW/CR CHEST/INTRAOPERATIVE FLUOROSCOPY-
[2017-09-10] VITALS: BP 130/88
[2017-09-10 06:30] VITALS: BP 104/72
--- NOTE | 2017-09-10 08:19 | PN- Housestaff ---
See Addendum Subjective Follow-up For: Bradycardia s/p pacemaker severe malnutrition Dysphagia likely secondary to lower esophageal mass Tele-Events Since Last Visit: off tele Subjective: Patient was seen and examined at bedside. Has no complaints. Has been taking clear liquid diet. States he sometimes has regurgitation. Says the acid reflux medication helps. Review of Systems Constitutional: Reports: no symptoms. Objective Last 24 Hrs of Vital Signs/I&O Vital Signs Date Time Temp Pulse Resp B/P B/P Pulse O2 O2 Flow FiO2 Mean Ox Delivery Rate 09/10 0630 99.3 60 18 104/72 97 09/10 0000 98.7 60 18 130/88 97 09/09 1432 97.9 60 18 112/76 99 Room Air Intake & Output 09/10 1600 09/10 0800 09/10 0000 Intake Total 250 Output Total 250 Balance 0 Intake, IV 100 Intake, Oral 150 Output, 250 Emesis Patient 109 lb Weight Physical Exam General Appearance: Alert, Oriented X3, Cooperative, Mild Distress, cachetic Skin: No Rashes, No Breakdown Skin Temp/Moisture Exam: Warm/Dry Sepsis Skin Exam (color): Normal for Ethnicity HEENT: Atraumatic Cardiovascular: Normal S1, Normal S2, No Murmurs Lungs: Normal Air Movement Abdomen: Soft, No Tenderness Neurological: Normal Speech Extremities: No Edema Last 24 Hrs of Lab/Rasheed Results Last 24 Hrs of Labs/Mics: Laboratory Tests 09/10/17 0718: Anion Gap 6, Estimated GFR > 60, BUN/Creatinine Ratio 15.0, Magnesium 1.5 L Assessment/Plan Assessment: 67-year-old gentleman with a past medical history significant for GERD and developmental delay, who came in to the ED for chief complaint of persistent vomiting and heartburn. Patient was initially admitted to the ICU after he was found to hypotensive and bradycardic in the ED. After fluid resuscitation, his blood pressure improved. He underwent pacemaker implantation on 09/06/17. He was transferred to telemetry. As he had symptoms of dysphagia with inability to tolerate PO intake for which he underwent imaging. A CT scan was suspicious for esophageal mass vs stricuture for which he was scheduled for an EGD which revealed a GE junction mass. Assessment: 1. Sinus bradycardia s/p pacemaker 2. Severe Malnutrition 3. GastroEsophageal junction mass Plan: * Off tele now. * He has severe malnutrition likely in the setting of poor oral intake ( dysphagia/odynophagia) and possible malignancy * Prealbumin is significantly low. * He had an EGD on 09/08 which showed a tumor at the GE junction. Await results of biopsies * He may have a possible stent placement. Per GI will have to hold off on it as it may interfere with EUS * Possible transfer to [facility] for further management. * Replete Mg * Oncology consult. * CT Abd/Chest images were reviewed with radiology. It does not appear there is evidence of any mass/metastases outside of whats reported in esophagus. * He will likely require PET scan which can possibly done outpatient. * Diet: Clear Liquid diet * DVT Prophylaxis: SC Lovenox * Code: Full Code Patient brother Mr. Arnav Ricketts is the appointed conservator for the patient, he can be reached at [phone]. Conservator also mentioned that information can be released to patient's daughter in law Jessica. Patient's also can be reached at [phone]. Problem List: 1. Severe malnutrition Pain Ratin Pain Location: none Pain Goal: Remain pain free Pain Plan: none Tomorrow's Labs & Rationales: CBC, BEP, Mg
--- NOTE | 2017-09-10 10:31 | PN- Gastroenterology ---
Assessment/Plan GI Assessment/Recommendations: (*I took over the inpatient GI service on 09/08/17. Extensive records reviewed. Dr. Zainab Freeman's GI consult of 09/07/17 appreciated). 67 y/o male with cognitive dysfunction, living alone, with help from visiting aid & brother. No cigarettes. No alcohol. Poor historian. Apparently, long- standing GERD, recently put on PPI by PMD. Positive family history of esophageal CA (patient's brother). The patient was admitted to [place] 09/04/17 with at least 6 weeks of postprandial regurgitation, nausea & vomiting, with questionable dysphagia to solids, and 50 lb weight loss. There was no hematemesis, melena, abdominal pain, CP, SOB, or odynophagia. CT showed a dilated proximal esophagus with distal narrowing. He also had symptomatic bradycardia with hypotension, requiring atropine. Lyme titer- negative. The patient was seen by the cardiology & cardiothoracic services. He had an MRI compatible dual-chamber pacemaker placed on 09/06/17. He was seen in GI consultation by Dr. Zainab Freeman on 09/07/17. 09/04/17: ECHOCARDIOGRAM- CONCLUSIONS: Normal left ventricular ejection fraction visually estimated at > 60%. Trace mitral regurgitation. Trace tricuspid regurgitation. Speedy Santoro M.D. 09/04/17: XRY-PORTABLE CHEST XRAY- Hyperinflated emphysematous lungs. A 2 cm indistinct masslike density in the left mid lung. CT scan evaluation can be considered. Borderline cardiac size. 09/04/17: CT ABD & PELVIS W IV CONTRAST- There is a paucity of intra-abdominal fat which limits assessment. The distal esophagus is fluid-filled and demonstrates a small hiatal hernia. Mild small bowel mucosal hyperemia may be present, possibly reflecting an enteritis. A small amount of fluid within the pelvis is suspected. Heterogeneous attenuation within the right portal vein, likely due to streak artifact. Correlation with ultrasound is suggested to ensure normal portal venous flow. No definite liver metastases or dilated ducts seen. DJD. 09/04/17: US-ABD/PELV ORGAN DOPPLER- No evidence of portal venous thrombus. Small volume of ascites. 09/04/17: EKG- Sinus bradycardia @ 43, RBBB/LAHB, NSST 09/05/17: CT CHEST WO IV CONTRAST- 1. There is mild left base linear scar/subsegmental atelectasis. 2. No pulmonary mass or nodule is seen. 3. No mediastinal or hilar adenopathy is seen. 4. There are small bilateral pleural effusions. 5. There is esophageal dilatation with distal tapering, raising the question of achalasia, distal esophageal stricture or mass, scleroderma or, less likely, Chagas disease. This can be more fully evaluated with a barium swallow, if clinically indicated. 09/06/17: XRY-CHEST XRAY, SINGLE VIEW/CR CHEST/INTRAOPERATIVE FLUOROSCOPY- IMPRESSION: Administrative dictation for intraoperative fluoroscopy and image archiving PM insertion in PACS. Please refer to operative notes for details. 09/06/17: XRY-PORTABLE CHEST XRAY- No pneumothorax is seen status-post left subclavian pacemaker placement. The lungs appear clear. 09/06/17: EKG- Atrial paced complexes, paired PVCs, aberrant complexes, possibly supraventricular, LBBB. 09/08/17: EGD with biopsy, per Dr. Maribel Freeman- Proximal/mid esophagus was dilated. There were retained secretions, which were suctioned. Exophytic lesion starting at 41 cm, occupying 1/4 of the circumference. Near circumferential lesion/friability at 42 cm, with stricture & resistance to passage. GEJ at 44 cm. tumor involvement of lesser curvature aspect of the gastric cardia noted on retroflexion. Normal gastric distention. Normal distal stomach. Patent pylorus. Normal duodenum. *Multiple biopsies obtained from distal esophagus, GE junction, & cardia (retroflexed). Impression: * GE junction tumor, involving distal esophagus and cardia. *As of 09/08/17, the patient remained with cognitive dysfunction. He was again informed of the GEJ tumor, involving the distal esophagus & gastric cardia, noted earlier today, per Dr. Maribel Freeman. He tolerated wild rinaldi Ensure uneventfully, and was requesting more. He had no signs or symptoms of aspiration. There was no overt GI bleeding or melena. He denied any nausea or vomiting. There was no abdominal pain, CP, or SOB. 09/09/17: WBC 4.1, H/H 11.1/34.1, MCV 89.4, RDW 13.6, PLT 181, BUN/Cr 7/0.6, GFR > 60, Na 135, K 3.6, HCO3 26, AG 6, *PAB 10.3. *As of 09/09/17, the patient was still having difficulty with feeds. He tolerated Ensure, but just before attempting toast, had some nausea and vomiting. There was no overt GI bleeding. There was no overt GI bleeding. He denied any chest pain, shortness breath, fevers, chills, cough, or abdominal pain, but remained a poor historian, with cognitive issues. The medical house staff had unsuccessfully attempted to reach the patient's brother, having left him several messages. He was hemodynamically stable, with Tm 99 & O2 sat RA 97%. 09/10/17: BUN/Cr 9/0.6, GFR > 60, Na 135, K 3.8,HCO3 29, AG 6. *As of 09/10/17, the patient remained hemodynamically stable with O2 sat RA 97%, Tm 99.3. He was tolerating Ensure. A calorie count had still not been officially rxd. He had no overt signs of aspiration. His brother/POA had still not returned phone calls to the medical housestaff. His KCl was repleted. The patient remained a poor historian. He tried a combination of broth, Ensure, coffee, jello, & lemon ices, fllowed by regurgitation, nausea & vomiting, probably with a component of dysphagia. There was no hematemesis, abdominal pain, CO, or SOB. He otherwise looked comfortable. *SUGGEST- *Await 09/08/17: multiple biopsies from distal esophagus, GE junction, & cardia, per Dr. Maribel Freeman. *Trial of clear liquids po for now, with aspiration precautions. *Nutritional supplements (patient prefers wild rinaldi or chocolate Ensure). Calorie count. Replete lytes. *No definite metastatic disease noted on inpatient CT CAP-> *NO lung mass seen on CT chest. *Eventual medical oncology & RT oncology input (but need tissue diagnosis back first). *Will need esophageal stent, as patient probably cannot sustain himself (&/or *possible resumption of IVF), with low PAB. Will need outpt EUS for staging purposes -> it is possible that esophageal stent may interfere with interpretation of EUS & therefore, may need transfer to [facility] for EUS, followed by esophageal stent. * Continuing care input regarding logistics of care, as patient lives alone, and has cognitive dysfunction. *IV PPI BID. *Zofran as needed. *DVT prophylaxis. * Consider hospitalist conference with pt's brother/POA for aggressiveness/goals of care (the medical house staff has left numerous messages with him. *For future reference, Arnav Ricketts: [phone]; Harry Ricketts & Jessica: [phone]). Follow-up with cardiology, post PPM, but as HR now stable, they signed off 09/09/17. The above was discussed with Dr. Augustine 09/08/17 , & again with the medical housestaff today. *Further GI recommendations to follow, depending on clinical course. Problem List: 1. Dysphagia 2. Esophageal cancer 3. Severe malnutrition 4. Nausea and vomiting 5. GERD (gastroesophageal reflux disease) 6. Symptomatic bradycardia Subjective Subjective: 09/10/17: BUN/Cr 9/0.6, GFR > 60, Na 135, K 3.8,HCO3 29, AG 6. *As of 09/10/17, the patient remained hemodynamically stable with O2 sat RA 97%, Tm 99.3. He was tolerating Ensure. A calorie count had still not been officially rxd. He had no overt signs of aspiration. His brother/POA had still not returned phone calls to the medical housestaff. His KCl was repleted. The patient remained a poor historian. He tried a combination of broth, Ensure, coffee, jello, & lemon ices, fllowed by regurgitation, nausea & vomiting, probably with a component of dysphagia. There was no hematemesis, abdominal pain, CO, or SOB. He otherwise looked comfortable. Review of Systems: Full 14 point ROS otherwise noncontributory & as per HPI. Constitutional: Reports: weakness, unexplained weight loss. EENTM: Reports: no symptoms. Cardiovascular: Reports: no symptoms. Respiratory: Reports: no symptoms. GI: Reports: nausea, vomiting (*usualy tolerates Ensure), dysphagia with solids ( poor hx). Genitourinary: Reports: no symptoms. Musculoskeletal: Reports: no symptoms. Skin: Reports: no symptoms. Neurological/Psychological: Reports: no symptoms. Hematologic/Endocrine: Reports: no symptoms. Immunologic/Allergic: Reports: no symptoms. All Other Systems: Reviewed and Negative Objective Vital Signs and I&Os Vital Signs Date Time Temp Pulse Resp B/P B/P Pulse O2 O2 Flow FiO2 Mean Ox Delivery Rate 09/10 0630 99.3 60 18 104/72 97 09/10 0000 98.7 60 18 130/88 97 09/09 1432 97.9 60 18 112/76 99 Room Air Intake & Output 09/10 1600 09/10 0400 09/09 1600 09/09 0400 09/08 0400 Intake Total 250 600 480 940 500 Output Total 250 4255 957 2530 325 Balance 0 -850 -20 -60 175 Intake, IV 100 700 400 Intake, Oral 150 600 480 240 100 Number 0 0 Bowel Movements Output, 250 400 Emesis Output, Urine 4237 527 6176 325 Patient 109 lb 109 lb 109 lb Weight Weight Bed scale Bed scale Measurement Method Physical Exam: Well-developed, thin, malnourished male, looking older than his state age, in no apparent distress. Sclera anicteric. Conjunctiva pink. Oropharynx clear. Slightly dry mucus membranes. No oral thrush. No aphthous ulcers. False upper & lower teeth. There is no adenopathy, thyromegaly, or JVD. No peripheral stigmata of inflammatory bowel disease or chronic liver disease on exam. No spiders on the anterior chest wall. No gynecomastia. No CVA tenderness. Clean PPM site in left upper chest wall. Lungs: clear to A&P. No wheezing, rales, or rhonchi. Heart exam: regular rate rhythm, S1 and S2, without any murmur. Abdominal exam: normal bowel sounds, soft scaphoid belly, nontender, without guarding or rebound. No mass. No organomegaly. No fluid shift. No pulsatile mass. No epigastric bruit. Digital rectal exam: deferred. Extremities: without C, C, or E. Mild DJD. No rash. No palpable cords. Distal pulses 1+ bilaterally. DTRs 2+ bilaterally. Alert and oriented x 3, but cognitive dysfunction. Motor 4/5 B/L. No tremor. No asterixis. Current Medications: Current Medications Sig/Triston Start time Last Medication Dose Route Stop Time Status Admin Acetaminophen 1,000 MG Q6P PRN 09/06 1645 AC 09/10 N/A 1 UNIT IV 0815 Acetaminophen 650 MG Q6P PRN 09/04 1600 AC PO Atropine Sulfate 0.5 MG ONCE PRN 09/04 1800 AC IV Enoxaparin Sodium 40 MG DAILY 09/07 0900 AC 09/10 SC 0809 Pantoprazole Sodium 40 MG BID 09/04 2100 AC 09/10 IV 0809 Polyethylene Glycol 17 GM DAILY 09/09 1431 AC 09/10 PO 0809 Potassium Chloride 10 MEQ ONCE ONE 09/09 1730 DCD IV 09/09 1731 Potassium Chloride 10 MEQ ONCE ONE 09/09 1730 DC 09/09 IV 09/09 173 2001 Senna/Docusate Sodium 1 TAB BID PRN 09/09 1445 AC 09/09 PO 2223 Tramadol HCl 50 MG Q6-PRN PRN 09/06 1345 AC PO Results Pertinent Lab Results: Laboratory Tests 09/10 09/09 0718 0640 Chemistry Sodium (137 - 145 mmol/L) 135 L 135 L Potassium (3.5 - 5.1 mmol/L) 3.8 3.6 Chloride (98 - 107 mmol/L) 100 103 Carbon Dioxide (22 - 30 mmol/L) 29 26 Anion Gap (5 - 16) 6 6 BUN (9 - 20 mg/dL) 9 7 L Creatinine (0.7 - 1.2 mg/dL) 0.6 L 0.6 L Estimated GFR (>60 ml/min) > 60 > 60 BUN/Creatinine Ratio (7 - 25 %) 15.0 11.7 Prealbumin (17.6 - 36.0 mg/dL) 10.3 L Hematology CBC w Diff NO MAN DIFF REQ WBC (4.8 - 10.8 /CUMM) 4.1 L RBC (4.70 - 6.10 /CUMM) 3.85 L Hgb (14.0 - 18.0 G/DL) 11.1 L Hct (42 - 52 %) 34.4 L MCV (80.0 - 94.0 FL) 89.4 MCH (27.0 - 31.0 PG) 28.9 MCHC (33.0 - 37.0 G/DL) 32.3 L RDW (11.5 - 14.5 %) 13.6 Plt Count (130 - 400 /CUMM) 181 MPV (7.4 - 10.4 FL) 8.2 Gran % (42.2 - 75.2 %) 72.0 Lymphocytes % (20.5 - 51.1 %) 15.4 L Monocytes % (1.7 - 9.3 %) 8.1 Eosinophils % (0 - 5 %) 4.0 Basophils % (0.0 - 2.0 %) 0.5 Absolute Granulocytes (1.4 - 6.5 /CUMM) 2.9 Absolute Lymphocytes (1.2 - 3.4 /CUMM) 0.6 L Absolute Monocytes (0.10 - 0.60 /CUMM) 0.3 Absolute Eosinophils (0.0 - 0.7 /CUMM) 0.2 Absolute Basophils (0.0 - 0.2 /CUMM) 0 Imaging/Other Studies: 09/04/17: ECHOCARDIOGRAM- CONCLUSIONS: Normal left ventricular ejection fraction visually estimated at > 60%. Trace mitral regurgitation. Trace tricuspid regurgitation. Speedy Santoro M.D. 09/04/17: XRY-PORTABLE CHEST XRAY- Hyperinflated emphysematous lungs. A 2 cm indistinct masslike density in the left mid lung. CT scan evaluation can be considered. Borderline cardiac size. 09/04/17: CT ABD & PELVIS W IV CONTRAST- There is a paucity of intra-abdominal fat which limits assessment. The distal esophagus is fluid-filled and demonstrates a small hiatal hernia. Mild small bowel mucosal hyperemia may be present, possibly reflecting an enteritis. A small amount of fluid within the pelvis is suspected. Heterogeneous attenuation within the right portal vein, likely due to streak artifact. Correlation with ultrasound is suggested to ensure normal portal venous flow. No definite liver metastases or dilated ducts seen. DJD. 09/04/17: US-ABD/PELV ORGAN DOPPLER- No evidence of portal venous thrombus. Small volume of ascites. 09/04/17: EKG- Sinus bradycardia @ 43, RBBB/LAHB, NSST 09/05/17: CT CHEST WO IV CONTRAST- 1. There is mild left base linear scar/subsegmental atelectasis. 2. No pulmonary mass or nodule is seen. 3. No mediastinal or hilar adenopathy is seen. 4. There are small bilateral pleural effusions. 5. There is esophageal dilatation with distal tapering, raising the question of achalasia, distal esophageal stricture or mass, scleroderma or, less likely, Chagas disease. This can be more fully evaluated with a barium swallow, if clinically indicated. 09/06/17: XRY-CHEST XRAY, SINGLE VIEW/CR CHEST/INTRAOPERATIVE FLUOROSCOPY-
--- NOTE | 2017-09-10 11:13 | PN- Cardiology ---
Subjective Subjective: The patient is alert, awoken from sleep The events of the last 24 hours as well as telemetry were reviewed. Review of Systems: The review of systems is negative for chest pains, palpitations nor lightheadedness. The remainder of the 14 point review of systems is noncontributory with the exception of above. Objective Vital Signs and I&Os Vital Signs Date Time Temp Pulse Resp B/P B/P Pulse O2 O2 Flow FiO2 Mean Ox Delivery Rate 09/10 0630 99.3 60 18 104/72 97 09/10 0000 98.7 60 18 130/88 97 09/09 1432 97.9 60 18 112/76 99 Room Air Intake & Output 09/10 1600 09/10 0800 09/10 0000 09/09 1600 09/09 0809/09 0000 Intake Total 250 600 480 Output Total 250 1150 300 500 Balance 0 -550 -300 -20 Intake, IV 100 Intake, Oral 150 600 480 Output, 250 400 Emesis Output, Urine 750 300 500 Patient 109 lb 109 lb Weight Weight Bed scale Measurement Method Physical Exam: General: Nontoxic, no apparent distress. HEENT: Sclera and conjunctiva within normal limits, without xanthelasmas. Neck: Carotids 2+ without bruits. Respiratory: Clear to auscultation, air movement is good, without accessory respiratory muscle use. Heart: Regular rate and rhythm, without murmurs, without JVD. Abdomen: Soft, nontender, no masses, normoactive bowel sounds. Extremities: Without clubbing, cyanosis, without edema. Neuro: Nonfocal exam, strength, 5 out of 5 Skin: Within normal limits without lesions. Psych: Mood and affect: Normal Current Medications: Current Medications Sig/Triston Start time Last Medication Dose Route Stop Time Status Admin Acetaminophen 1,000 MG Q6P PRN 09/06 1645 AC 09/10 N/A 1 UNIT IV 0815 Acetaminophen 650 MG Q6P PRN 09/04 1600 AC PO Atropine Sulfate 0.5 MG ONCE PRN 09/04 1800 AC IV Enoxaparin Sodium 40 MG DAILY 09/07 0900 AC 09/10 SC 0809 Magnesium Sulfate 1 GM Q2H 09/10 1115 AC Dextrose/Water 100 ML IV 09/10 1514 Ondansetron HCl 4 MG Q8P PRN 09/10 1115 AC IV Pantoprazole Sodium 40 MG BID 09/04 2100 AC 09/10 IV 0809 Polyethylene Glycol 17 GM DAILY 09/09 1431 AC 09/10 PO 0809 Potassium Chloride 10 MEQ ONCE ONE 09/09 1730 DCD IV 09/09 1731 Potassium Chloride 10 MEQ ONCE ONE 09/09 1730 DC 09/09 IV 09/09 1732000 Senna/Docusate Sodium 1 TAB BID PRN 09/09 1445 AC 09/09 PO 2223 Tramadol HCl 50 MG Q6-PRN PRN 09/06 1345 AC PO Results Last 48 Hrs of Labs/Mics: Laboratory Tests 09/10/17 0718: Anion Gap 6, Estimated GFR > 60, BUN/Creatinine Ratio 15.0, Magnesium 1.5 L 09/09/17 0640: Anion Gap 6, Estimated GFR > 60, BUN/Creatinine Ratio 11.7, Prealbumin 10.3 L, CBC w Diff NO MAN DIFF REQ, RBC 3.85 L, MCV 89.4, MCH 28.9, MCHC 32.3 L, RDW 13.6, MPV 8.2, Gran % 72.0, Lymphocytes % 15.4 L, Monocytes % 8.1, Eosinophils % 4.0, Basophils % 0.5, Absolute Granulocytes 2.9, Absolute Lymphocytes 0.6 L, Absolute Monocytes 0.3, Absolute Eosinophils 0.2, Absolute Basophils 0 Assessment/Plan Assessment/Plan 1. Nausea and vomiting, possible gastroenteritis 2. Sinus bradycardia with hypotension and bifascicular block 3. Possible lung mass Plan: * Patient is overall doing well from a cardiac standpoint, and we will continue treatment as per GI. * Stable post pacemaker insertion by Dr. Sidhu. Pacemaker function: normal, continued follow-up pacemaker clinic will be arranged. * Echocardiogram reviewed, LV function normal, no significant valvular disease Please contact us if further cardiac assistance is needed. Continue telemetry? No Continue telemetry? No
[2017-09-10 16:00] VITALS: BP 120/80
[2017-09-10 21:26] VITALS: BP 100/65
[2017-09-11 06:27] VITALS: BP 104/62
--- NOTE | 2017-09-11 07:25 | PN- Housestaff ---
Ivan WILLIS,[facility] 09/11/17 0725: Subjective Follow-up For: Bradycardia GE Junction Tumor Subjective: Mr Ricketts was seen and examined this morning. He is resting comfortably in bed. Denies any issues overnight. He was able to get some rest. Patient has not really been able to tolerate much by mouth intake. He subsequently is able to drink some ensure. Denies any fever, chills, nausea, vomiting. Review of Systems Constitutional: Reports: see HPI. Objective Last 24 Hrs of Vital Signs/I&O Vital Signs Date Time Temp Pulse Resp B/P B/P Pulse O2 O2 Flow FiO2 Mean Ox Delivery Rate 09/11 1426 98.1 59 18 110/68 100 Room Air 09/11 0627 98.0 59 18 104/62 97 09/10 2126 98.4 59 18 100/65 99 09/10 1600 97.6 55 18 120/80 98 Room Air Intake & Output 09/11 1600 09/11 0800 09/11 0000 Intake Total 800 100 120 Output Total Balance 800 100 120 Intake, IV 20 Intake, Oral 800 100 100 Patient 47.344 kg Weight Weight Bed scale Measurement Method Physical Exam General Appearance: Alert, Oriented X3, Cooperative HEENT: Mucous Membr. moist/pink, Cachctic and Ill Appearing Cardiovascular: Regular Rate, Normal S1, Normal S2 Lungs: Clear to Auscultation Abdomen: Normal Bowel Sounds, Soft, No Tenderness Neurological: Normal Speech Extremities: No Edema Vascular: Normal Pulses, Right Upper Extremity Swelling noted, most prominent close to antecubital fossa. . No tenderness, no Erythema, No skin breakdown. Current Medications: Current Medications Sig/T[place]on Start time Last Medication Dose Route Stop Time Status Admin Acetaminophen 1,000 MG Q6P PRN 09/06 1645 09/10 N/A 1 UNIT IV 0815 Acetaminophen 650 MG Q6P PRN 09/04 1600 AC PO Atropine Sulfate 0.5 MG ONCE PRN 09/04 1800 AC IV Enoxaparin Sodium 40 MG DAILY 09/07 0900 AC 09/11 SC 0924 Magnesium Sulfate 1 GM Q2H 09/10 1115 DC 09/10 Dextrose/Water 100 ML IV 09/10 1514 1455 Ondansetron HCl 4 MG Q8P PRN 09/10 1115 AC IV Pantoprazole Sodium 40 MG BID 09/04 2100 AC 09/11 IV 0923 Patient Medication 1 ED ONE ONE 09/[address] [facility] ED 09/11 1501 Polyethylene Glycol 17 GM DAILY 09/09 1431 AC 09/11 PO 0924 Senna/Docusate Sodium 1 TAB BID PRN 09/09 1445 AC 09/11 PO 0924 Tramadol HCl 50 MG Q6-PRN PRN 09/06 1345 AC PO Last 24 Hrs of Lab/Rasheed Results Last 24 Hrs of Labs/Mics: Laboratory Tests 09/11/17 0605: Anion Gap 6, Estimated GFR > 60, BUN/Creatinine Ratio 18.3, Magnesium 1.8, CBC w Diff NO MAN DIFF REQ, RBC 3.99 L, MCV 89.7, MCH 29.5, MCHC 32.9 L, RDW 13.7, MPV 8.2, Gran % 69.2, Lymphocytes % 15.4 L, Monocytes % 10.4 H, Eosinophils % 4.6, Basophils % 0.4, Absolute Granulocytes 2.9, Absolute Lymphocytes 0.6 L, Absolute Monocytes 0.4, Absolute Eosinophils 0.2, Absolute Basophils 0 Assessment/Plan Assessment: Mr Ricketts is a 67-year-old gentleman with a past medical history significant for GERD and developmental delay, who came in to the ED for chief complaint of persistent vomiting and heartburn. Patient was initially admitted to the ICU after he was found to hypotensive and bradycardic in the ED. After fluid resuscitation, his blood pressure improved. He underwent pacemaker implantation on 09/06/17. He was transferred to telemetry. As he had symptoms of dysphagia with inability to tolerate PO intake for which he underwent imaging. A CT scan was suspicious for esophageal mass vs stricuture for which he was scheduled for an EGD which revealed a GE junction mass. He was subsequently transferred to the Gen. medical service overnight and is currently being managed for the following problems. Assessment: 1. Sinus bradycardia s/p pacemaker 2. Severe Malnutrition 3. GastroEsophageal junction mass Plan: * He has severe malnutrition likely in the setting of poor oral intake ( dysphagia/odynophagia) and possible malignancy * Prealbumin is significantly low. * He had an EGD on 09/08 which showed a tumor at the GE junction. Await results of biopsies * He may have a possible stent placement. Per GI will have to hold off on it as it may interfere with EUS * Spoke with GI doctor at bedside currently awaiting accepting physician at [facility] and will subsequently be transferred either later today or tomorrow. Dr. Rosales did speak with Dr. Hayward who will be willing to see the patient for further management with stent/G-tube. * Spoke with oncology currently waiting final pathology results prior to any formal recommendations. He'll be happy to follow-up with the patient once final pathology results are ready. Will need oncology consultation at [place]. * CT Abd/Chest images were reviewed with radiology. It does not appear there is evidence of any mass/metastases outside of whats reported in esophagus. * Upper ultrasound of the upper extremity done today to rule out venous thromboembolic disease. * He will likely require PET scan which can possibly done outpatient. * Diet: Clear Liquid diet * DVT Prophylaxis: SC Lovenox * Code: Full Code Patient brother Mr. Arnav Ricketts is the appointed conservator for the patient, he can be reached at [phone]. Conservator also mentioned that information can be released to patient's daughter in law Jessica. Patient's Alix also can be reached at [phone]. Problem List: 1. Esophageal cancer 2. Severe malnutrition 3. Dysphagia 4. GERD (gastroesophageal reflux disease) Pain Ratin Pain Location: No Pain Pain Goal: Remain pain free Pain Plan: Tylenol PRN Tomorrow's Labs & Rationales: No Labs - will likely be discharged. 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 Awaiting biopsy results. WIll f/u on GI recommendations. Pt may be possible transfer to [facility] for EUS vs outpt EUS depending on GI recommendations. Bradycardia- s/p PPM placement this admission.
[2017-09-11 08:14] LABS: ABSOLUTE BASOPHIL COUNT 0 /CUMM (0.0-0.2); ABSOLUTE EOSINOPHIL COUNT 0.2 /CUMM (0.0-0.7); ABSOLUTE GRANULOCYTE CT 2.9 /CUMM (1.4-6.5); ABSOLUTE LYMPH COUNT 0.6 /CUMM (1.2-3.4); ABSOLUTE MONOCYTE COUNT 0.4 /CUMM (0.10-0.60); BASOPHIL % 0.4 % (0.0-2.0); EOSINOPHIL % 4.6 % (0-5); GRANULOCYTE % 69.2 % (42.2-75.2); HEMATOCRIT 35.8 % (42-52); MEAN CORPUSCULAR HGB 29.5 PG (27.0-31.0); MEAN CORPUSCULAR HGB CONC 32.9 G/DL (33.0-37.0); MEAN CORPUSCULAR VOLUME 89.7 FL (80.0-94.0); MEAN PLATELET VOLUME 8.2 FL (7.4-10.4); PLATELET COUNT 200 /CUMM (130-400); RBC DISTRIBUTION WIDTH 13.7 % (11.5-14.5); RED BLOOD CELL CT 3.99 /CUMM (4.70-6.10); WHITE BLOOD CELL COUNT 4.2 /CUMM (4.8-10.8)
--- NOTE | 2017-09-11 10:25 | Discharge Summary ---
Visit Information Visit Dates Admission Date: 09/04/17 Discharge Date: 09/11/2017 Hospital Course Course Attending Physician: Edie WILLIS,Keith Meeks Primary Care Physician: Ace Olvera MD Hospital Course: Mr Ricketts is a 67-year-old gentleman with a past medical history significant for GERD and developmental delay, who comes in for chief complaint of persistent vomiting and heartburn. During ED workup patient was found to be significantly hypotensive with blood pressure 72/40 requiring 3 L normal saline resuscitation. Additionally, he was noted to have bradycardia into the 30s along with the hypotension. Patient denied any dizziness, change in vision, palpitation or chest pain. He denied any previous history of bradycardia, or recent change in medications. Given His persistent bradycardia patient was transferred to ICU. From the ICU and was transferred to the telemetry service and once cardiac stabilization was achieved he was transferred to the Gen. medical service. Below is a summary of the care received on this. Results imaging results from the admission have been included in a separate section of this document. #Asymptomatic Bradycardia: Patient was found to have a bradycardia with heart rate varying between 35-40 in the emergency room. He seemed to improve after getting atropine 1 in the ED however, when he came back to the floors he started going into the 30s again while remaining completely awake, asymptomatic and conversant. His EKG reveals sinus bradycardia at 44 bpm with right bundle branch block and left anterior fascicular block. Troponins were negative. Serial EKGs continued to show sinus bradycardia with right bundle branch block and left anterior fascicular block. He was transferred to ICU on 09/04/2017. He was evaluated by lab systems analyst Dr. Santoro. Recommended to get permanent pacemaker. Lyme panel was negative. Patient had a permanent pacemaker on 09/06/2017. #Vomiting/dysphagia: CT abdomen and pelvis with contrast showed ?enteritis and ? streak artifact in the right portal vein. However the description of his symptoms seemed primarily esophageal given the dysphasia is with solids. Liver function tests were within normal limits. Lipase was normal. Ultrasound abdomen Doppler was done which showed no evidence of portal venous thrombosis. Small volume of ascites was found. Patient had been complaining of long- standing heartburn with some recent nausea and vomiting as well as some degree of dysphagia and postprandial regurgitation. It was reported that he had approximately 50 pound weight loss. Family history positive for esophageal cancer in the patient's brother. GI was consulted based on his CAT scan findings which showed esophageal dilatation with distal tapering, raising the question of achalasia, distal esophageal stricture or mass, scleroderma or, less likely, Chagas disease. Continued Protonix 40 twice a day 09/08/2017 the patient underwent an EGD. Results which have been attached to this report. On 09/11/2017, the patient was transferred to [facility] for consideration for a esophageal stent and an endoscopic ultrasound. Patient will also need to be evaluated by medical oncology. # X-ray finding of a 2 cm mass in left midlung: Patient states that he has never smoked but given his weight loss, cachectic appearance, dysphagia - there is concern for malignancy. Given that x-ray finding of 2 cm mass mid lung left side, CT chest was done which showed no masses or nodules. There is mid linear scar, subsegmental atelectasis at the posterior left base. No mediastinal or hilar adenopathy. No thoracic aortic aneurysm. May consider PET scan. #Swelling of right upper extremity. On 09/11/2017 the patient complained of some right upper extremity swelling. No evidence of any erythema or tenderness. An ultrasound was done to rule out any acute pathology and a DVT. This was negative. Results of which have been in included on this report. Patient will also need to have a social work consultation once medical health has been stabilized. His brother repeatedly requested and insisted that he will likely not be able to return to his apartment due to generalized deconditioning and multiple social reasons. Patient was a full code during the course of the admission. Allergies: Coded Allergies: No Known Allergies (09/04/17) Significant Procedures: Operative/Inv Procedure Report Surgery Date: 09/06/17 Name of Procedure: MRI compatible dual-chamber pacemaker Pre-Operative Diagnosis: Symptomatic bradycardia Post-Operative Diagnosis: Same Estimated Blood Loss: less than 50ml Surgeon/Vocational Evaluator: Chris Sidhu MD Anesthesia: general endotracheal tube Operative/Procedure Note Note: After placement of monitoring lines and induction of general anesthesia the patient's left chest and shoulder were prepped and draped in a sterile fashion. Incision was made in the deltopectoral groove and carried down to the prepectoralis muscle. There was an extremely small cephalic vein. It was encircled but was not suitable for any instrumentation so was occluded with surgical clips. The patient was then placed in Trendelenburg position and with a single pass the needle was entered into the subclavian vein and a wire was passed into the right atrium under fluoroscopic guidance. Sheath dilator was passed over the wire with the wire retained and a Medtronic pacemaker lead model #[id number] was then advanced into the pulmonary outflow tract under fluoroscopic guidance. It was withdrawn into the right ventricular chamber in position of the apex. R waves were measured at 6.8 mV. The pacing threshold was 0.4 V with a current of 0.6 mA and impedance of 1033 ohms. Sheath dilator was then passed over the retained wire and a preformed atrial lead model #[id number] was then positioned in the right atrial appendage. P waves were measured 3.2 mV. The pacing threshold was 0.5 V with a current of 0.6 mA and impedance of 712 ohms. The leads were secured to the prepectoralis fascia with Ethibond sutures. They were then connected to a Medtronic MRI compatible dual-chamber pacemaker. Pacemaker pocket was fashioned above the prepectoralis fascia. Hemostasis was achieved with electrocautery and with surgical clips. The pocket was irrigated with antibiotic irrigation. The wound was then closed in layers with deep Vicryl suture followed by running Vicryl subcuticular suture. The patient tolerated the procedure well was brought to recovery room awake and extubated in stable condition. DICTATED BY: Thea Gallardo MD,Chris Marcus Endoscopy Procedure Procedure Date: 09/08/17 Procedure Type: EGD w/biopsy Natural Resources Specialist: Salvador Freeman M.D. ASA Classification: III Indications: Dysphagia, regurgitation, weight loss Instrument: diagnostic gastroscope Meds Received: KATHE Patient's Tolerance: good Complications: none Extent Reached: second part of duodenum Procedure: Informed/witnessed consent was obtained over the telephone from the patient's brother, Arnav Ricketts. The patient was medicated. Lidocaine pharyngeal spray was administered. Pulse oximetry, blood pressure and cardiac monitoring were performed continuously throughout the procedure. The Olympus high-definition gastroscope was inserted into the mouth and advanced to the duodenum. Retroflexion was performed within the stomach to examine the cardia. Careful examination was performed. Findings: The proximal/mid esophagus was dilated. There were retained secretions which were suctioned. At 40 cm was a narrowing/convergence of folds. Just distal to this starting at 41 cm was an exophytic lesion occupying one quarter of the circumference, and by 42 cm there was a near circumferential lesion/friability, with a stricture effect and resistance to passage. The GE junction was at 44 cm. The stomach had normal distention. Retroflexed view demonstrated involvement of the cardia by tumor (on the lesser curvature). The remainder of the stomach had normal mucosa and folds aside from several small fundic polyps. The pyloric channel, duodenal bulb and duodenal sweep were normal. Multiple biopsies were obtained from distal esophagus, GE junction, and cardia ( retroflexed). Impression: * GE junction tumor, involving distal esophagus and cardia Recommendations: * Await pathology * Review recent imaging (CT scans of chest, abdomen, pelvis) with radiology to ascertain if adequate for staging * Pending above, medical oncology and radiation oncology consultations * May need to consider esophageal stent * Attempt clear liquid diet for now CC: Wade WILLIS,Ace Meeks DICTATED BY: Pete WILLIS,Salvador Cervantes Pertinent Lab Results: SERVICE DATE: 09/04/17- EXAM TYPE: US - US-ABD/PELV ORGAN DOPPLER EXAMINATION: Complete duplex ultrasound of the abdomen CLINICAL INDICATION: Concern for right portal vein obstruction. Abdominal pain. COMPARISON: CT from 09/04/2017 TECHNIQUE: Real-time abdominal ultrasound performed. Duplex Doppler ultrasound and pulse wave Doppler with spectral analysis were also performed. FINDINGS: There is a small volume of ascites. The liver is normal in size, with normal echogenicity. No focal liver lesions are seen. The lesion seen on prior CT is not visualized on this study. No evidence for intrahepatic biliary ductal dilatation. The main, right, and left portal veins demonstrate normal corrected hepato-petal venous waveforms. The right, middle, and left hepatic veins demonstrates normal hepatofugal venous waveforms. The splenic vein demonstrates normal direction of flow. No evidence for venous thrombosis. Hepatic arteries are poorly visualized. The right hepatic artery demonstrates normal waveform with appropriate flow. The gallbladder appears unremarkable without stones or colon cystitis. The common bile duct is of normal size, measuring 0.6 cm. The visualized portion of the pancreas appears unremarkable. Both kidneys are visualized and are normal in size, echogenicity, and cortical thickness. The right kidney measures 8.9 cm in the sagittal plane, the left kidney measures 8.6 cm in sagittal plane. There is no mass, calcification or hydronephrosis seen. There is mild renal pelvic fullness of the left kidney. The spleen appears unremarkable and measures 8.5 cm. The proximal abdominal aorta and IVC are normal in appearance. Trace left pleural effusion noted. IMPRESSION: No evidence of portal venous thrombus. Small volume of ascites. DICTATED BY: Jeffery Cohen MD SERVICE DATE: 09/04/17- EXAM TYPE: US - US-ABD/PELV ORGAN DOPPLER EXAMINATION: Complete duplex ultrasound of the abdomen CLINICAL INDICATION: Concern for right portal vein obstruction. Abdominal pain. COMPARISON: CT from 09/04/2017 TECHNIQUE: Real-time abdominal ultrasound performed. Duplex Doppler ultrasound and pulse wave Doppler with spectral analysis were also performed. FINDINGS: There is a small volume of ascites. The liver is normal in size, with normal echogenicity. No focal liver lesions are seen. The lesion seen on prior CT is not visualized on this study. No evidence for intrahepatic biliary ductal dilatation. The main, right, and left portal veins demonstrate normal corrected hepato-petal venous waveforms. The right, middle, and left hepatic veins demonstrates normal hepatofugal venous waveforms. The splenic vein demonstrates normal direction of flow. No evidence for venous thrombosis. Hepatic arteries are poorly visualized. The right hepatic artery demonstrates normal waveform with appropriate flow. The gallbladder appears unremarkable without stones or colon cystitis. The common bile duct is of normal size, measuring 0.6 cm. The visualized portion of the pancreas appears unremarkable. Both kidneys are visualized and are normal in size, echogenicity, and cortical thickness. The right kidney measures 8.9 cm in the sagittal plane, the left kidney measures 8.6 cm in sagittal plane. There is no mass, calcification or hydronephrosis seen. There is mild renal pelvic fullness of the left kidney. The spleen appears unremarkable and measures 8.5 cm. The proximal abdominal aorta and IVC are normal in appearance. Trace left pleural effusion noted. IMPRESSION: No evidence of portal venous thrombus. Small volume of ascites. DICTATED BY: Jeffery Cohen MD SERVICE DATE: 09/04/17-113 EXAM TYPE: CAT - CT ABD & PELVIS W IV CONTRAST EXAMINATION: CT ABDOMEN AND PELVIS WITH CONTRAST CLINICAL INFORMATION: Intermittent nausea and vomiting, hypotension. COMPARISON: None TECHNIQUE: Multidetector volumetric imaging was performed of the abdomen and pelvis following IV administration of 95 mL of Optiray 320 intravenous contrast. Sagittal and coronal reformatted images were obtained on the technologist's workstation. DLP: 243 mGy-cm FINDINGS: There is a paucity of intra-abdominal fat. LUNG BASES: There are mild dependent changes in the visualized lung bases. The imaged heart and pericardium appear unremarkable. The distal esophagus is fluid-filled and demonstrates a small hiatal hernia. LIVER, GALLBLADDER, AND BILIARY TREE: The liver enhances normally with normal contour. In the inferior aspect of the right lobe there is a 7 mm hypoattenuating focus, nonspecific. No definitive intrahepatic or extrahepatic ductal dilatation is visualized. The gallbladder is unremarkable with no evidence of radiopaque gallstones, gallbladder wall thickening, or obvious pericholecystic inflammatory changes. PANCREAS: Pancreatic parenchyma appears unremarkable. The pancreatic duct is visualized and appears top normal in caliber at 2 mm in diameter. SPLEEN: Unremarkable. ADRENAL GLANDS: Unremarkable. KIDNEYS AND URETERS: The kidneys are normal in size, shape, and attenuation. No hydronephrosis, hydroureter, or calculi seen. No perinephric stranding. BLADDER: Unremarkable. GASTROINTESTINAL TRACT: No definitive bowel dilatation is visualized. There is moderate stool within the colon. The lack of intra-abdominal fat substantially limits assessment for extraluminal air and ascites; no conclusive extraluminal air. A small amount of free fluid may be present in the pelvis. There may be some mucosal hyperemia diffusely involving small bowel loops. An appendix is difficult to definitively identify. ABDOMINAL WALL: No significant hernia is appreciated. LYMPH NODES: Adenopathy is difficult to evaluate due to lack of intra-abdominal fat. VASCULAR: The aorta appears normal in caliber. There is streak artifacts extending through an area of the right portal vein which likely creates some intraluminal heterogeneity. Correlation with ultrasound is recommended to ensure patency of the portal vein without intraluminal filling defects. The iliac vessels are somewhat tortuous and patulous. PELVIC VISCERA: Unremarkable. OSSEOUS STRUCTURES: There are 5 nonrib-bearing lumbar type vertebral bodies. There were multilevel degenerative changes of the spine most notable at L5-S1. There are mild degenerative changes of both hips, SI joints, and pubic symphysis. No acute osseous abnormality. IMPRESSION: There is a paucity of intra-abdominal fat which limits assessment. Mild small bowel mucosal hyperemia may be present, possibly reflecting an enteritis. A small amount of fluid within the pelvis is suspected. Heterogeneous attenuation within the right portal vein, likely due to streak artifact. Correlation with ultrasound is suggested to ensure normal portal venous flow. DICTATED BY: Narinder Silver MD SERVICE DATE: 09/04/17 EXAM TYPE: CARD - ECHOCARDIOGRAM CÉSAR RICKETTS Age: 67 : 1950 Gender: M Exam Date: 09/05/2017 10:21 Exam Location: [facility] Ht (in): 68 Wt (lb): 100 BSA: 1.45 BP: 120 / 76 Ordering Physician: Lea Sharif MD Referring Physician: Lea Sharif MD Technologist: Easton Johnson STEFANI Room Number: 106 Indications: Arrhythmia Rhythm: Sinus Technical Quality: Technically difficult study FINDINGS Left Ventricle Normal size left ventricle. Normal left ventricular wall thickness. Normal left ventricular ejection fraction visually estimated at > 60%. No obvious regional wall motion abnormalities. Right Ventricle Normal right ventricular size and function. Right Atrium Normal right atrial size. Left Atrium Normal left atrial size. Mitral Valve Mild mitral annular calcification. Trace mitral regurgitation. Aortic Valve Aortic valve mildy thickened.no aortic stenosis. No aortic regurgitation. Tricuspid Valve Tricuspid valve not well visualized, grossly normal. Trace tricuspid regurgitation. Pulmonic Valve Pulmonic valve not well visualized, grossly normal. Pericardium No pericardial effusion. Great Vessels Normal size aortic root. CONCLUSIONS Normal left ventricular ejection fraction visually estimated at > 60%. Trace mitral regurgitation. Trace tricuspid regurgitation. Speedy Santoro M.D. (Electronically Signed) Final Date: 06 Sep 2017 10:49 MEASUREMENTS (Male / Female) Normal Values 2D ECHO LV Diastolic Diameter PLAX 5.0 cm 4.2 - 5.9 / 3.9 - 5.3 cm LV Systolic Diameter PLAX 3.1 cm 2.1 - 4.0 cm LV Fractional Shortening PLAX 38.0 % 25 - 46 % LV Ejection Fraction 2D Teich 67.9 % IVS Diastolic Thickness 0.9 cm LVPW Diastolic Thickness 0.8 cm LV Relative Wall Thickness 0.3 RV Internal Dim ED PLAX 2.8 cm 1.9 - 3.8 cm LVOT Diameter 2.1 cm Aortic Root Diameter 3.4 cm LA Systolic Diameter LX 2.5 cm 3.0 - 4.0 / 2.7 - 3.8 cm Ascending Aorta Diameter 2.8 cm DOPPLER AV Peak Velocity 115.0 cm/s AV Peak Gradient 5.3 mmHg AV Mean Velocity 73.9 cm/s AV Mean Gradient 3.0 mmHg AV Velocity Time Integral 28.3 cm LVOT Peak Velocity 88.7 cm/s LVOT Peak Gradient 3.1 mmHg LVOT Mean Velocity 56.0 cm/s LVOT Mean Gradient 2.0 mmHg LVOT Velocity Time Integral 23.8 cm LVOT Stroke Volume 82.4 cm AV Area Cont Eq vti 2.9 cm AV Area Cont Eq pk 2.7 cm MV Peak Velocity 57.9 cm/s MV Peak Gradient 1.3 mmHg MV Mean Velocity 27.9 cm/s MV Mean Gradient 0.0 mmHg Mitral E Point Velocity 43.9 cm/s Mitral A Point Velocity 30.1 cm/s Mitral E to A Ratio 1.5 MV PHT Velocity 65.0 cm/s MV Deceleration [place] 110.0 cm/s MV Pressure Half Time 177.3 ms MV Area PHT 1.2 cm MV Deceleration Time 190.0 ms PV Peak Velocity 59.3 cm/s PV Peak Gradient 1.4 mmHg PV Mean Velocity 41.9 cm/s PV Mean Gradient 1.0 mmHg PV Velocity Time Integral 12.8 cm LV E' Lateral Velocity 6.9 cm/s Mitral E to LV E' Lateral Ratio 6.3 LV E' Septal Velocity 5.0 cm/s Mitral E to LV E' Septal Ratio 8.8 DICTATED BY: Speedy Santoro MD SERVICE DATE: 09/05/17- EXAM TYPE: CAT - CT CHEST WO IV CONTRAST EXAMINATION: CT CHEST WITHOUT CONTRAST CLINICAL INFORMATION: Weight loss. COMPARISON: None. TECHNIQUE: Multidetector volumetric CT imaging of the chest was done. Axial MIP volume rendering provided. Sagittal and coronal reformatted images were obtained. DLP: 198.61 mGy-cm FINDINGS: ENGINEERING PSYCHOLOGIST: There is hyperinflation. The lungs are grossly clear. The heart size is least top normal. LUNGS: No mass or nodule seen. There is bilateral dependent hypoaeration. There is mild linear scar/subsegmental atelectasis at the posterior left base. No focal infiltrate or groundglass opacity is seen. There is biapical scarring. No generalized increase is seen in peripheral interlobular septal markings. No bleb or bullous formation is seen. The central airways appear patent. MEDIASTINUM: The thyroid is unremarkable. There is no sizable mediastinal or hilar adenopathy. No thoracic aortic aneurysm is seen. There is dilatation of the esophagus, with distal narrowing (601:40). PLEURA: There are small bilateral pleural effusions. No pericardial effusion is seen. No pleural mass or thickening. AXILLA: No lymphadenopathy. UPPER ABDOMEN: There is incompletely characterized by mild biliary ductal dilatation. Question mild residual contrast within the left included portions of the urinary collecting structures from the prior CT abdomen and pelvis of 09/04/2017. OSSEOUS STRUCTURES: There is multi-level marked thoracic and upper lumbar spondylosis, appearance suggesting possible DISH (diffuse idiopathic skeletal hyperostosis). No acute or aggressive osseous abnormality seen. IMPRESSION: 1. There is mild left base linear scar/subsegmental atelectasis. 2. No pulmonary mass or nodule is seen. 3. No mediastinal or hilar adenopathy is seen. 4. There are small bilateral pleural effusions. 5. There is esophageal dilatation with distal tapering, raising the question of achalasia, distal esophageal stricture or mass, scleroderma or, less likely, Chagas disease. This can be more fully evaluated with a barium swallow, if clinically indicated. DICTATED BY: Chan Leon MD SERVICE DATE: 09/06/17- EXAM TYPE: RAD - XRY-CHEST XRAY, SINGLE VIEW EXAMINATION: CR CHEST/INTRAOPERATIVE FLUOROSCOPY CLINICAL INDICATION: Delete pacemaker insertion in OR. COMPARISON: None TECHNIQUE/FINDINGS: Fluoroscopic equipment was dedicated to the operating room for the performance of an intraoperative procedure. Single spot film was acquired and is archived in PACS. Please refer to operative notes for procedural detail. FLUOROSCOPY TIME: 14 minutes and 11 seconds. IMPRESSION: Administrative dictation for intraoperative fluoroscopy and image archiving in PACS. Please refer to operative notes for details. DICTATED BY: Valarie Gomez MD SERVICE DATE: 09/06/17-5748 EXAM TYPE: RAD - XRY-PORTABLE CHEST XRAY EXAMINATION: XR PORTABLE CHEST CLINICAL INFORMATION: Status post pacemaker placement. COMPARISON: Prior chest radiograph dated 09/04/2017. TECHNIQUE: Portable frontal view of the chest was obtained. FINDINGS: There is stable cardiomegaly. A left subclavian dual-lead, dual-chamber pacemaker device is seen, without lead fracture noted. No congestive heart failure is seen. The lungs show no infiltrate, effusion or pneumothorax. There is no acute osseous abnormality. IMPRESSION: No pneumothorax is seen status-post left subclavian pacemaker placement. The lungs appear clear. DICTATED BY: Carolyn WILLIS,Chan Mauro SERVICE DATE: 09/11/17 EXAM TYPE: US - US-UNILATERAL VENOUS DOPPLER EXAMINATION: US TRIPLEX UPPER EXTREMITY, RIGHT CLINICAL INFORMATION: Evaluate for deep vein thrombosis COMPARISON: None TECHNIQUE: Color-flow triplex imaging with spectral analysis and compression Doppler were performed on the upper extremity. FINDINGS: Respiratory variation, normal compression and augmented flow are noted throughout the upper extremity. The visualized right upper jugular vein, innominate vein, subclavian vein, axillary vein, brachial vein, basilic vein, cephalic vein show no evidence of deep venous thrombosis. No abnormal fluid collection. IMPRESSION: There is no sonographic evidence of deep venous thrombosis involving the right upper extremity. DICTATED BY: Ralph Tineo MD Disposition Summary Disposition Principal Diagnosis: Symmetric bradycardia requiring pacemaker. Additional Diagnosis: Dysphagia GE Junction Tumor GERD Severe Malnutrition. Discharge Disposition: other general hospital Discharge Instructions General Discharge Information Code Status: Full Code Patient's Diet: As Tolerated Patient's Activity: As Tolerated Follow-Up Instructions/Appts: Please follow-up with your primary care physician once you've been discharged from the hospital. Please follow-up with GI based on recommendations from [facility]. Medications at Discharge Discharge Medications: Continue taking these medications: Omeprazole (Omeprazole) 40 MG CAPSULE. 1 Capsule ORAL DAILY Qty = 30 Comments: IV PROTONIX GIVEN WHILE IN HOSPITAL Copies To: Connie WILLIS,Hilton Dover; Thea Gallardo MD,Chris Marcus; Wade WILLIS,Ace Meeks
--- NOTE | 2017-09-11 10:39 | Patient Discharge Instructions ---
Discharge Instructions General Discharge Information You were seen/treated for: Bradycardia Dysphagia [place] Severe malnutrition Nausea and vomiting GERD (gastroesophageal reflux disease) Diet Continue normal diet: Yes (As Tolerated ) Acute Coronary Syndrome Inclusion Criteria At DC or during hospital stay patient has or had the following: ACS DIAGNOSIS No Discharge Core Measures Meds if any: Prescribed or Continued at Discharge Meds if any: NOT Prescribed or Continued at Discharge Congestive Heart Failure Inclusion Criteria At DC or during hospital stay patient has or had the following: CHF DIAGNOSIS No Discharge Core Measures Meds if any: Prescribed or Continued at Discharge Meds if any: NOT Prescribed or Continued at Discharge Cerebrovascular accident Inclusion Criteria At DC or during hospital stay patient has or had the following: CVA/TIA Diagnosis No Discharge Core Measures Meds if any: Prescribed or Continued at Discharge Meds if any: NOT Prescribed or Continued at Discharge Venous thromboembolism Inclusion Criteria VTE Diagnosis No VTE Type NONE VTE Confirmed by (Test) NONE Discharge Core Measures - Per Current guidelines, there needs to be overlap - treatment for the first 5 days of Warfarin therapy. - If discharged on Warfarin prior to 5 days of - overlap therapy, the patient will need to be - assessed for post discharge needs including - *Post discharge parental anticoagulation - *Warfarin and/or parental anticoagulation education - *Follow up date to check INR post discharge At least 5 days overlap therapy as Inpatient No Meds if any: Prescribed or Continued at Discharge Note: Overlap Therapy is Warfarin and Anticoagulant Meds if any: NOT Prescribed or Continued at Discharge
--- NOTE | 2017-09-11 14:04 | ULTRASOUND REPORT ---
EXAMINATION: US TRIPLEX UPPER EXTREMITY, RIGHT CLINICAL INFORMATION: Evaluate for deep vein thrombosis COMPARISON: None TECHNIQUE: Color-flow triplex imaging with spectral analysis and compression Doppler were performed on the upper extremity. FINDINGS: Respiratory variation, normal compression and augmented flow are noted throughout the upper extremity. The visualized right upper jugular vein, innominate vein, subclavian vein, axillary vein, brachial vein, basilic vein, cephalic vein show no evidence of deep venous thrombosis. No abnormal fluid collection. IMPRESSION: There is no sonographic evidence of deep venous thrombosis involving the right upper extremity.
[2017-09-11 14:26] VITALS: BP 110/68
--- NOTE | 2017-09-11 14:38 | PN- Gastroenterology ---
Assessment/Plan GI Assessment/Recommendations: (*I took over the inpatient GI service on 09/08/17. Extensive records reviewed. Dr. Zainab Freeman's GI consult of 09/07/17 appreciated). 67 y/o male with cognitive dysfunction, living alone, with help from visiting aid & brother. No cigarettes. No alcohol. Poor historian. Apparently, long- standing GERD, recently put on PPI by PMD. Positive family history of esophageal CA (patient's brother). The patient was admitted to [facility] 09/04/17 with at least 6 weeks of postprandial regurgitation, nausea & vomiting, with questionable dysphagia to solids, and 50 lb weight loss. There was no hematemesis, melena, abdominal pain, CP, SOB, or odynophagia. CT showed a dilated proximal esophagus with distal narrowing. He also had symptomatic bradycardia with hypotension, requiring atropine. Lyme titer- negative. The patient was seen by the cardiology & cardiothoracic services. He had an MRI compatible dual-chamber pacemaker placed on 09/06/17. He was seen in GI consultation by Dr. Zainab Freeman on 09/07/17. 09/04/17: ECHOCARDIOGRAM- CONCLUSIONS: Normal left ventricular ejection fraction visually estimated at > 60%. Trace mitral regurgitation. Trace tricuspid regurgitation. Speedy Santoro M.D. 09/04/17: XRY-PORTABLE CHEST XRAY- Hyperinflated emphysematous lungs. A 2 cm indistinct masslike density in the left mid lung. CT scan evaluation can be considered. Borderline cardiac size. 09/04/17: CT ABD & PELVIS W IV CONTRAST- There is a paucity of intra-abdominal fat which limits assessment. The distal esophagus is fluid-filled and demonstrates a small hiatal hernia. Mild small bowel mucosal hyperemia may be present, possibly reflecting an enteritis. A small amount of fluid within the pelvis is suspected. Heterogeneous attenuation within the right portal vein, likely due to streak artifact. Correlation with ultrasound is suggested to ensure normal portal venous flow. No definite liver metastases or dilated ducts seen. DJD. 09/04/17: US-ABD/PELV ORGAN DOPPLER- No evidence of portal venous thrombus. Small volume of ascites. 09/04/17: EKG- Sinus bradycardia @ 43, RBBB/LAHB, NSST 09/05/17: CT CHEST WO IV CONTRAST- 1. There is mild left base linear scar/subsegmental atelectasis. 2. No pulmonary mass or nodule is seen. 3. No mediastinal or hilar adenopathy is seen. 4. There are small bilateral pleural effusions. 5. There is esophageal dilatation with distal tapering, raising the question of achalasia, distal esophageal stricture or mass, scleroderma or, less likely, Chagas disease. This can be more fully evaluated with a barium swallow, if clinically indicated. 09/06/17: XRY-CHEST XRAY, SINGLE VIEW/CR CHEST/INTRAOPERATIVE FLUOROSCOPY- IMPRESSION: Administrative dictation for intraoperative fluoroscopy and image archiving PM insertion in PACS. Please refer to operative notes for details. 09/06/17: XRY-PORTABLE CHEST XRAY- No pneumothorax is seen status-post left subclavian pacemaker placement. The lungs appear clear. 09/06/17: EKG- Atrial paced complexes, paired PVCs, aberrant complexes, possibly supraventricular, LBBB. 09/08/17: EGD with biopsy, per Dr. Maribel Freeman- Proximal/mid esophagus was dilated. There were retained secretions, which were suctioned. Exophytic lesion starting at 41 cm, occupying 1/4 of the circumference. Near circumferential lesion/friability at 42 cm, with stricture & resistance to passage. GEJ at 44 cm. tumor involvement of lesser curvature aspect of the gastric cardia noted on retroflexion. Normal gastric distention. Normal distal stomach. Patent pylorus. Normal duodenum. *Multiple biopsies obtained from distal esophagus, GE junction, & cardia (retroflexed). Impression: * GE junction tumor, involving distal esophagus and cardia. *As of 09/08/17, the patient remained with cognitive dysfunction. He was again informed of the GEJ tumor, involving the distal esophagus & gastric cardia, noted earlier today, per Dr. Maribel Freeman. He tolerated wild rinaldi Ensure uneventfully, and was requesting more. He had no signs or symptoms of aspiration. There was no overt GI bleeding or melena. He denied any nausea or vomiting. There was no abdominal pain, CP, or SOB. 09/09/17: WBC 4.1, H/H 11.1/34.1, MCV 89.4, RDW 13.6, PLT 181, BUN/Cr 7/0.6, GFR > 60, Na 135, K 3.6, HCO3 26, AG 6, *PAB 10.3. *As of 09/09/17, the patient was still having difficulty with feeds. He tolerated Ensure, but just before attempting toast, had some nausea and vomiting. There was no overt GI bleeding. There was no overt GI bleeding. He denied any chest pain, shortness breath, fevers, chills, cough, or abdominal pain, but remained a poor historian, with cognitive issues. The medical house staff had unsuccessfully attempted to reach the patient's brother, having left him several messages. He was hemodynamically stable, with Tm 99 & O2 sat RA 97%. 09/10/17: BUN/Cr 9/0.6, GFR > 60, Na 135, K 3.8, HCO3 29, AG 6, Mg 1.5 *As of 09/10/17, the patient remained hemodynamically stable with O2 sat RA 97%, Tm 99.3. He was tolerating Ensure. A calorie count had still not been officially rxd. He had no overt signs of aspiration. His brother/conservator had still not returned phone calls to the medical housestaff. (*For future reference, Arnav Ricketts: [phone]; Harry Ricketts, & Jessica: [phone]). His KCl was repleted. The patient remained a poor historian. He tried a combination of broth, Ensure, coffee, jello, & lemon ices, fllowed by regurgitation, nausea & vomiting, probably with a component of dysphagia. There was no hematemesis, abdominal pain, CP, or SOB. He otherwise looked comfortable. 09/11/17: US TRIPLEX UPPER EXTREMITY, RIGHT- There is no sonographic evidence of deep venous thrombosis involving the right upper extremity. 09/11/17: WBC 4.2, H/H 11.8/35.8, nl MCV, nl RDW, PLT 200, BUN/Cr 11/0.6, GFR > 60, Na 135, K 4.0, HCO3 30, AG 6, Mg 1.8 *As of 09/11/17, the patient remained hemodynamically stable & afebrile, with O2 sat RA 100%. The patient was still unable to sustain himself calorically with Ensure, due to intermittent regurgitation, nausea, vomiting, and clinical dysphagia. The : EGD bxs per Dr. Maribel Freeman of the distal esophagus/GEJ/gastric cardia (? all placed in 1 jar) were reviewed with Dr. 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 I spoke to Dr. Maribel Freeman regarding this, as he had done the EGD. I later met with the patient's brother/conservator, Arnav Ricketts, & Arnav's , Alix, in the patient's room. The dx of cancer was discussed with them, although the pt has cognitive issues. Oncology had not yet seen the pt at [facility], as the pathology was not back until a short while ago. I had spoken with Dr. Hayward at [facility] earlier this a.m., regarding the issue of esophageal stent & EUS, for feeding/ staging purposes, as CT CAP did not show any definite mets. Placing a stent first could theoretically interfere with visualization by EUS, but Dr. Hayward was not convinced the pt definitely needed a stent, as the malignant stricture might improve post RT/CTX (other option could be G tube, placed either endoscopically if the internal bumper could fit through the esophageal malignant stricture, vs. G/J tube by IR). In any event, Dr. Hayward told me the [facility] GI service would be more than happy to see the patient, once he is directly transferred as an inpt from [facility] to the [facility] medical service. Based on the patient's cognitive issues & living conditions, the above cannot be done on an outpt basis. Aranv Ricketts concurred. *SUGGEST- *For inpatient medical transfer from [facility] to [facility], for EUS per Dr. Hayward or his colleagues. *Await oncology/RT consult at [facility] (for logistical purposes, if needed, the pt can ultimately be followed up as an outpt by [facility] at [facility], once he is plugged into [facility]). *Consideratrion at [facility] for CTX/ RT vs. esophageal stent vs. G/J tube (endoscopically vs. IR), depending on EUS results, oncology consult, & clinical course.*Trial of clear liquids po for now, with aspiration precautions. *Nutritional supplements (patient prefers wild rinaldi or chocolate Ensure). Calorie count. Replete lytes. *Watch Mg level on PPI. *No definite metastatic disease noted on inpatient CT CAP-> *NO lung mass seen on CT chest. *Would resume IVF, with low PAB & poor po intake. *Continuing care input regarding logistics of care, as patient lives alone, and has cognitive dysfunction, regarding eventual outpt placement. *IV PPI BID. *Zofran as needed. *DVT prophylaxis. Follow-up with cardiology, post PPM, but HR now stable. The above was previously discussed with Dr. Augustine 09/08/17, & again with the medical housestaff & with Dr. Irizarry, of the hospitalist service, today, . I also spoke at length with the pt's brother/conservator, Arnav Ricketts, 09/11/17, at [facility], who concurred with the above tx plan. He will speak with continuing care regarding the ultimate placement of the pt in an SNF as an outpt , as it is unsafe for the pt to go back to his previous dwelling, where he lived alone. *Further inpt GI care as needed. If outpt GI follow-up is ultimately needed, the pt can see Dr. Maribel Freeman, who did the iniital inpt 09/07/17: GI consult & 09/08/17: EGD. Problem List: 1. Dysphagia 2. Esophageal cancer 3. Severe malnutrition 4. Nausea and vomiting 5. GERD (gastroesophageal reflux disease) 6. Symptomatic bradycardia Subjective Subjective: 09/11/17: US TRIPLEX UPPER EXTREMITY, RIGHT- There is no sonographic evidence of deep venous thrombosis involving the right upper extremity. 09/11/17: WBC 4.2, H/H 11.8/35.8, nl MCV, nl RDW, PLT 200, BUN/Cr 11/0.6, GFR > 60, Na 135, K 4.0, HCO3 30, AG 6, Mg 1.8 *As of 09/11/17, the patient remained hemodynamically stable & afebrile, with O2 sat RA 100%. The patient was still unable to sustain himself calorically with Ensure, due to intermittent regurgitation, nausea, vomiting, and clinical dysphagia. The : EGD bxs per Dr. Maribel Freeman of the distal esophagus/GEJ/gastric cardia (? all placed in 1 jar) were reviewed with Dr. 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 I spoke to Dr. Maribel Freeman regarding this, as he had done the EGD. I later met with the patient's brother/conservator, Arnav Ricketts, & Arnav's , Alix, in the patient's room. The dx of cancer was discussed with them, although the pt has cognitive issues. Oncology had not yet seen the pt at [facility], as the pathology was not back until a short while ago. I had spoken with Dr. Hayward at [facility] earlier this a.m., regarding the issue of esophageal stent & EUS, for feeding/ staging purposes, as CT CAP did not show any definite mets. Placing a stent first could theoretically interfere with visualization by EUS, but Dr. Hayward was not convinced the pt definitely needed a stent, as the malignant stricture might improve post RT/CTX (other option could be G tube, placed either endoscopically if the internal bumper could fit through the esophageal malignant stricture, vs. G/J tube by IR). In any event, Dr. Hayward told me the [facility] GI service would be more than happy to see the patient, once he is directly transferred as an inpt from [facility] to the [facility] medical service. Based on the patient's cognitive issues & living conditions, the above cannot be done on an outpt basis. Arnav Ricketts concurred. Review of Systems: Full 14 point ROS otherwise noncontributory & as per HPI. Constitutional: Reports: weakness, unexplained weight loss. EENTM: Reports: no symptoms. Cardiovascular: Reports: no symptoms. Respiratory: Reports: no symptoms. GI: Reports: nausea, vomiting (*usualy tolerates Ensure), dysphagia with solids ( poor hx). Genitourinary: Reports: no symptoms. Musculoskeletal: Reports: no symptoms. Skin: Reports: no symptoms. Neurological/Psychological: Reports: no symptoms. Hematologic/Endocrine: Reports: no symptoms. Immunologic/Allergic: Reports: no symptoms. All Other Systems: Reviewed and Negative Objective Vital Signs and I&Os Vital Signs Date Time Temp Pulse Resp B/P B/P Pulse O2 O2 Flow FiO2 Mean Ox Delivery Rate 09/11 1514 98.1 59 18 110/68 09/11 1426 98.1 59 18 110/68 100 Room Air 09/11 0627 98.0 59 18 104/62 97 09/10 2126 98.4 59 18 100/65 99 09/10 1600 97.6 55 18 120/80 98 Room Air Intake & Output 09/11 1600 09/11 0400 09/10 0400 09/09 0400 Intake Total 900 120 240 250 600 480 Output Total 250 1450 500 Balance 900 120 240 0 -850 -20 Intake, IV 20 100 Intake, Oral 900 100 240 150 600 480 Number 0 Bowel Movements Output, 250 400 Emesis Output, Urine 1050 500 Patient 104 lb 109 lb 109 lb Weight Weight Bed scale Bed scale Measurement Method Physical Exam: Well-developed, thin, malnourished male, looking older than his state age, in no apparent distress. Sclera anicteric. Conjunctiva pink. Oropharynx clear. Slightly dry mucus membranes. No oral thrush. No aphthous ulcers. False upper & lower teeth. There is no adenopathy, thyromegaly, or JVD. No peripheral stigmata of inflammatory bowel disease or chronic liver disease on exam. No spiders on the anterior chest wall. No gynecomastia. No CVA tenderness. Clean PPM site in left upper chest wall. Lungs: clear to A&P. No wheezing, rales, or rhonchi. Heart exam: regular rate rhythm, S1 and S2, without any murmur. Abdominal exam: normal bowel sounds, soft scaphoid belly, nontender, without guarding or rebound. No mass. No organomegaly. No fluid shift. No pulsatile mass. No epigastric bruit. Digital rectal exam: deferred. Extremities: without C, C, or E. Mild DJD. No rash. No palpable cords. Distal pulses 1+ bilaterally. DTRs 2+ bilaterally. Alert and oriented x 3, but cognitive dysfunction. Motor 4/5 B/L. No tremor. No asterixis. Current Medications: Current Medications Sig/Triston Start time Last Medication Dose Route Stop Time Status Admin Acetaminophen 1,000 MG Q6P PRN 09/06 1645 AC 09/10 N/A 1 UNIT IV 0815 Acetaminophen 650 MG Q6P PRN 09/04 1600 AC PO Atropine Sulfate 0.5 MG ONCE PRN 09/04 1800 AC IV Enoxaparin Sodium 40 MG DAILY 09/07 0900 AC 09/11 SC 0924 Ondansetron HCl 4 MG Q8P PRN 09/10 1115 AC IV Pantoprazole Sodium 40 MG BID 09/04 2100 AC 09/11 IV 0923 Patient Medication 1 ED ONE ONE 09/11 1500 DC Teaching ED 09/11 1501 Polyethylene Glycol 17 GM DAILY 09/09 1431 AC 09/11 PO 0924 Senna/Docusate Sodium 1 TAB BID PRN 09/09 1445 AC 09/11 PO 0924 Tramadol HCl 50 MG Q6-PRN PRN 09/06 1345 AC PO Results Pertinent Lab Results: Laboratory Tests 09/11 09/10 0605 0718 Chemistry Sodium (137 - 145 mmol/L) 135 L 135 L Potassium (3.5 - 5.1 mmol/L) 4.0 3.8 Chloride (98 - 107 mmol/L) 99 100 Carbon Dioxide (22 - 30 mmol/L) 30 29 Anion Gap (5 - 16) 6 6 BUN (9 - 20 mg/dL) 11 9 Creatinine (0.7 - 1.2 mg/dL) 0.6 L 0.6 L Estimated GFR (>60 ml/min) > 60 > 60 BUN/Creatinine Ratio (7 - 25 %) 18.3 15.0 Magnesium (1.6 - 2.3 mg/dL) 1.8 1.5 L Hematology CBC w Diff NO MAN DIFF REQ WBC (4.8 - 10.8 /CUMM) 4.2 L RBC (4.70 - 6.10 /CUMM) 3.99 L Hgb (14.0 - 18.0 G/DL) 11.8 L Hct (42 - 52 %) 35.8 L MCV (80.0 - 94.0 FL) 89.7 MCH (27.0 - 31.0 PG) 29.5 MCHC (33.0 - 37.0 G/DL) 32.9 L RDW (11.5 - 14.5 %) 13.7 Plt Count (130 - 400 /CUMM) 200 MPV (7.4 - 10.4 FL) 8.2 Gran % (42.2 - 75.2 %) 69.2 Lymphocytes % (20.5 - 51.1 %) 15.4 L Monocytes % (1.7 - 9.3 %) 10.4 H Eosinophils % (0 - 5 %) 4.6 Basophils % (0.0 - 2.0 %) 0.4 Absolute Granulocytes (1.4 - 6.5 /CUMM) 2.9 Absolute Lymphocytes (1.2 - 3.4 /CUMM) 0.6 L Absolute Monocytes (0.10 - 0.60 /CUMM) 0.4 Absolute Eosinophils (0.0 - 0.7 /CUMM) 0.2 Absolute Basophils (0.0 - 0.2 /CUMM) 0 /12 0640 Chemistry Sodium (137 - 145 mmol/L) 135 L Potassium (3.5 - 5.1 mmol/L) 3.6 Chloride (98 - 107 mmol/L) 103 Carbon Dioxide (22 - 30 mmol/L) 26 Anion Gap (5 - 16) 6 BUN (9 - 20 mg/dL) 7 L Creatinine (0.7 - 1.2 mg/dL) 0.6 L Estimated GFR (>60 ml/min) > 60 BUN/Creatinine Ratio (7 - 25 %) 11.7 Prealbumin (17.6 - 36.0 mg/dL) 10.3 L Hematology CBC w Diff NO MAN DIFF REQ WBC (4.8 - 10.8 /CUMM) 4.1 L RBC (4.70 - 6.10 /CUMM) 3.85 L Hgb (14.0 - 18.0 G/DL) 11.1 L Hct (42 - 52 %) 34.4 L MCV (80.0 - 94.0 FL) 89.4 MCH (27.0 - 31.0 PG) 28.9 MCHC (33.0 - 37.0 G/DL) 32.3 L RDW (11.5 - 14.5 %) 13.6 Plt Count (130 - 400 /CUMM) 181 MPV (7.4 - 10.4 FL) 8.2 Gran % (42.2 - 75.2 %) 72.0 Lymphocytes % (20.5 - 51.1 %) 15.4 L Monocytes % (1.7 - 9.3 %) 8.1 Eosinophils % (0 - 5 %) 4.0 Basophils % (0.0 - 2.0 %) 0.5 Absolute Granulocytes (1.4 - 6.5 /CUMM) 2.9 Absolute Lymphocytes (1.2 - 3.4 /CUMM) 0.6 L Absolute Monocytes (0.10 - 0.60 /CUMM) 0.3 Absolute Eosinophils (0.0 - 0.7 /CUMM) 0.2 Absolute Basophils (0.0 - 0.2 /CUMM) 0 Imaging/Other Studies: 09/04/17: ECHOCARDIOGRAM- CONCLUSIONS: Normal left ventricular ejection fraction visually estimated at > 60%. Trace mitral regurgitation. Trace tricuspid regurgitation. Speedy Santoro M.D. 09/04/17: XRY-PORTABLE CHEST XRAY- Hyperinflated emphysematous lungs. A 2 cm indistinct masslike density in the left mid lung. CT scan evaluation can be considered. Borderline cardiac size. 09/04/17: CT ABD & PELVIS W IV CONTRAST- There is a paucity of intra-abdominal fat which limits assessment. The distal esophagus is fluid-filled and demonstrates a small hiatal hernia. Mild small bowel mucosal hyperemia may be present, possibly reflecting an enteritis. A small amount of fluid within the pelvis is suspected. Heterogeneous attenuation within the right portal vein, likely due to streak artifact. Correlation with ultrasound is suggested to ensure normal portal venous flow. No definite liver metastases or dilated ducts seen. DJD. 09/04/17: US-ABD/PELV ORGAN DOPPLER- No evidence of portal venous thrombus. Small volume of ascites. 09/04/17: EKG- Sinus bradycardia @ 43, RBBB/LAHB, NSST 09/05/17: CT CHEST WO IV CONTRAST- 1. There is mild left base linear scar/subsegmental atelectasis. 2. No pulmonary mass or nodule is seen. 3. No mediastinal or hilar adenopathy is seen. 4. There are small bilateral pleural effusions. 5. There is esophageal dilatation with distal tapering, raising the question of achalasia, distal esophageal stricture or mass, scleroderma or, less likely, Chagas disease. This can be more fully evaluated with a barium swallow, if clinically indicated. 09/06/17: XRY-CHEST XRAY, SINGLE VIEW/CR CHEST/INTRAOPERATIVE FLUOROSCOPY- IMPRESSION: Administrative dictation for intraoperative fluoroscopy and image archiving PM insertion in PACS. Please refer to operative notes for details. 09/06/17: XRY-PORTABLE CHEST XRAY- No pneumothorax is seen status-post left subclavian pacemaker placement. The lungs appear clear. 09/06/17: EKG- Atrial paced complexes, paired PVCs, aberrant complexes, possibly supraventricular, LBBB. 09/08/17: EGD with biopsy, per Dr. Maribel Freeman- Proximal/mid esophagus was dilated. There were retained secretions, which were suctioned. Exophytic lesion starting at 41 cm, occupying 1/4 of the circumference. Near circumferential lesion/friability at 42 cm, with stricture & resistance to passage. GEJ at 44 cm. tumor involvement of lesser curvature aspect of the gastric cardia noted on retroflexion. Normal gastric distention. Normal distal stomach. Patent pylorus. Normal duodenum. *Multiple biopsies obtained from distal esophagus, GE junction, & cardia (retroflexed). Impression: * GE junction tumor, involving distal esophagus and cardia. 09/11/17: US TRIPLEX UPPER EXTREMITY, RIGHT- There is no sonographic evidence of deep venous thrombosis involving the right upper extremity.
[2017-09-11 15:14] VITALS: BP 110/68
[2017-09-11] MEDS ORDERED: PROTONIX IV40 M1 IV (16:16)
== END 2017-09-11 18:15 | disposition short-term general hospital (02) | DRG 242 ==
LOC: ERH 10:10 → ERHI 15:00 → 1NO 15:00 → CRI 15:00 → ENRESERV 15:19 → ENTRNSPT 15:48 → EDTRNSPT 16:10 → EDTRNSPTSTS 16:10 → 1NO 16:16 → CMPTRNSPT 16:26 → CRI 19:09 → ENTRNSPT 09-06 14:23 → EDTRNSPT 09-06 14:51 → EDTRNSPTSTS 09-06 14:51 → CMPTRNSPT 09-06 15:00 → 1NO 09-07 17:04 → ENTRNSPT 09-10 13:17 → EDTRNSPTSTS 09-10 13:35 → EDTRNSPT 09-10 13:35 → 2NB 09-10 13:51 → CMPTRNSPT 09-10 13:59 → 2NB 09-11 07:51
PROVIDERS: Hospitalist; Internal Medicine; Physician Assistant; Physician Assistant Medical; Student in an Organized Health Care Education/Training Program
PROC: 0JH606Z Insertion of Pacemaker, Dual Chamber into Chest Subcutaneous Tissue and Fascia, Open Approach (ICD-10-PCS; principal; 2017-09-06)
PROC: 02HK3JZ Insertion of Pacemaker Lead into Right Ventricle, Percutaneous Approach (ICD-10-PCS; 2017-09-06)
PROC: 02H63JZ Insertion of Pacemaker Lead into Right Atrium, Percutaneous Approach (ICD-10-PCS; 2017-09-06)
PROC: 0DB48ZX Excision of Esophagogastric Junction, Via Natural or Artificial Opening Endoscopic, Diagnostic (ICD-10-PCS; 2017-09-08)
PROC: 0DB38ZX Excision of Lower Esophagus, Via Natural or Artificial Opening Endoscopic, Diagnostic (ICD-10-PCS; 2017-09-08)
PROC: 0D758ZZ Dilation of Esophagus, Via Natural or Artificial Opening Endoscopic (ICD-10-PCS; 2017-09-08)
DX: R00.1 Bradycardia, unspecified (principal); E43 Unspecified severe protein-calorie malnutrition; I95.9 Hypotension, unspecified; R13.10 Dysphagia, unspecified; E83.42 Hypomagnesemia; Z68.1 Body mass index [BMI] 19.9 or less, adult; E87.6 Hypokalemia; K21.9 Gastro-esophageal reflux disease without esophagitis; R62.50 Unspecified lack of expected normal physiological development in childhood; D49.1 Neoplasm of unspecified behavior of respiratory system
CPT/HCPCS: 1NP; 2NBSP; 86618; CCU; 36415; 36592; 71045; 74177; 80307; 81003; 82436; 87389; 93005; 93010; 93306; 96374; 97116-GO; 97161-GP; C1785; C1898; C9399; J0131; J0461; J0690; J1650; J2001; J2405; J7042